=== PATIENT | female | born 1965 | race Caucasian/White ===

== ENCOUNTER 2021-05-15 13:32 | Inpatient (IN) | payer OTHER ==
[~2021-05-15] VITALS: Ht 165.1 cm; Wt 91.2 kg
[2021-05-15 14:22] LABS: BASOPHILS ABSOLUTE AUTO 0.07 K/mm3 (0.00-0.23); BASOPHILS PERCENT AUTO 0 % (0-2); EOSINOPHILS ABSOLUTE AUTO 0.02 K/mm3 (0.00-0.68); EOSINOPHILS PERCENT AUTO 0 % (0-6); Hematocrit 46.1 % (33.0-51.0); Hemoglobin 15.2 g/dL (11.5-16.0); IMMATURE GRAN ABSOLUTE AUTO 0.12 K/mm3 (0.00-0.10); IMMATURE GRAN PERCENT AUTO 1 % (0-1); LYMPHOCYTES ABSOLUTE AUTO 2.01 K/mm3 (0.84-5.20); LYMPHOCYTES PERCENT AUTO 10 % (21-46); MONOCYTES ABSOLUTE AUTO 1.66 K/mm3 (0.16-1.47); MONOCYTES PERCENT AUTO 8 % (4-13); Mean Corpuscular HGB 28.5 pg (26.0-34.0); Mean Corpuscular Volume 87 fL (80-100); Mean Platelet Volume 10.7 fL (9.1-12.4); NEUTROPHILS ABSOLUTE AUTO 16.99 K/mm3 (1.96-9.15); NEUTROPHILS PERCENT AUTO 81 % (41-73); Platelet Count 324 K/mm3 (150-400); RDW Coefficient Variation 12.1 % (11.7-14.2); RDW Standard Deviation 38.6 fL (35.1-46.3); Red Blood Cell Count 5.33 M/mm3 (3.80-5.20); White Blood Cell Count 20.87 K/mm3 (4.00-11.30)
[2021-05-15 14:56] LABS: Alanine Aminotransfer (ALT/SGP 18 U/L (12-78); Albumin, Blood 3.2 g/dL (3.4-5.0); Albumin/Globulin Ratio 0.6 (0.8-1.8); Alk Phos 105 U/L (50-136); Anion Gap 18 mmol/L (6-16); Aspartate Aminotrans (AST/SGOT 10 U/L (12-37); Bilirubin, Total 0.8 mg/dL (0.1-1.0); Blood Urea Nitrogen 11 mg/dL (8-24); Bun/Creatinine Ratio 17.5 (12.0-20.0); CO2, Blood 15 mmol/L (21-32); Calcium, Blood 9.6 mg/dL (8.5-10.1); Chloride, Blood 98 mmol/L (98-108); Creatinine, Blood 0.63 mg/dL (0.40-1.00); Globulin, Blood 5.8 g/dL (2.2-4.0); Glomerular Filtration Rate >60 (60-); Glucose, Blood 353 mg/dL (70-99); Potassium, Blood 4.2 mmol/L (3.5-5.5); Sodium, Blood 131 mmol/L (136-145)
--- NOTE | 2021-05-15 22:37 | NUR ---
2155: PT TO ICU 16 VIA DAVIAN FROM OR FOR RECOVERY POST TRANSMETATARSAL AMPUTATION WITH INCISION AND DRAINAGE FOR NECROTIZING FASCIITIS. SHE ROUSES EASILY TO VERBAL STIMULI AND ATTEMPTS COUGH AND DEEP BREATH, EFFORT IS NOTED WEAK. LUNGS ARE CLEAR THROUGHOUT WITH DIM BASES BILAT, SATS MID 90S WITH OXYGEN VIA NASAL CANNULA AT 6 L/MIN. PT DENIES PAIN, DENIES NAUSEA, STATES THAT SHE IS FEELING SAD. HRR, PRESSURES MAINTAINING, SINUS RHYTHM ON MONITOR, RATE 80S, SKIN PWD, PULSES FULL, BRISK CAP REFILL. NO EDEMA NOTED, DRESSING TO RIGHT FOOT IS KEVIN WRAP AND WOUND VAC, CDI, NO DRAINAGE IN WOUND VAC OF THIS TIME. 2210: PT FULLY AWAKE AND REQUESTS ICE WATER, ICE CHIPS PROVIDED, WILL MONITOR. CAN COUGH AND DEEP BREATHE WELL NOW. VITALS REMAIN STABLE. CONTINUES TO DENY PAIN, DRESSING REMAINS CDI. OXYGEN HAS BEEN TITRATED DOWN TO 4 L/MIN VIA NASAL CANNULA. 2225: PT MEETS POST ANESTHESIA RECOVERY DISCHARGE CRITERIA. CONTINUES TO DENY PAIN, DRESSING REMAINS CDI, VITALS REMAIN STABLE, REMAINS FULLY AWAKE. OXYGEN HAS BEEN TITRATED DOWN TO 2 L/MIN VIA NASAL CANNULA. 2237: PT TO PCU 13 VIA DAVIAN, REPORT TO JOI MIRANDA.
[2021-05-16 04:02] LABS: BASOPHILS ABSOLUTE AUTO 0.06 K/mm3 (0.00-0.23); BASOPHILS PERCENT AUTO 0 % (0-2); EOSINOPHILS ABSOLUTE AUTO 0.02 K/mm3 (0.00-0.68); EOSINOPHILS PERCENT AUTO 0 % (0-6); Hematocrit 38.1 % (33.0-51.0); Hemoglobin 12.7 g/dL (11.5-16.0); IMMATURE GRAN ABSOLUTE AUTO 0.08 K/mm3 (0.00-0.10); IMMATURE GRAN PERCENT AUTO 0 % (0-1); LYMPHOCYTES ABSOLUTE AUTO 2.54 K/mm3 (0.84-5.20); LYMPHOCYTES PERCENT AUTO 14 % (21-46); MONOCYTES ABSOLUTE AUTO 2.12 K/mm3 (0.16-1.47); MONOCYTES PERCENT AUTO 12 % (4-13); Mean Corpuscular HGB 28.8 pg (26.0-34.0); Mean Corpuscular HGB Conc 33.3 g/dL (31.5-36.5); Mean Corpuscular Volume 86 fL (80-100); Mean Platelet Volume 10.4 fL (9.1-12.4); NEUTROPHILS ABSOLUTE AUTO 13.41 K/mm3 (1.96-9.15); NEUTROPHILS PERCENT AUTO 74 % (41-73); Platelet Count 281 K/mm3 (150-400); RDW Coefficient Variation 12.1 % (11.7-14.2); RDW Standard Deviation 38.4 fL (35.1-46.3); Red Blood Cell Count 4.41 M/mm3 (3.80-5.20); White Blood Cell Count 18.23 K/mm3 (4.00-11.30)
--- NOTE | 2021-05-16 05:59 | NUR ---
PT ALERT AND ORIENTEDD. VSS ON 2L. TYLENOL AND DILAUDID GIVEN FOR PAIN W/ GOOD EFFECT. PT UP TO BSC W/ FWW, NON WT BEARING TO R LEG, 2 PERSON ASSIST. INCREASED PAIN NOTED AND BED KAMARA USED REMAINDER OF NIGHT. R LEG ELEVATED ON PILLOWS. WOUND VAC IN PLACE. PT SLEEPING B/W CARE. USING CALL LIGHT TO MAKE NEEDS KNOWN.
[2021-05-16 11:12] LABS: Albumin, Blood 2.5 g/dL (3.4-5.0); Anion Gap 9 mmol/L (6-16); Blood Urea Nitrogen 11 mg/dL (8-24); Bun/Creatinine Ratio 17.9 (12.0-20.0); CO2, Blood 21 mmol/L (21-32); Chloride, Blood 105 mmol/L (98-108); Creatinine, Blood 0.62 mg/dL (0.40-1.00); Glomerular Filtration Rate >60 (60-); Glucose, Blood 279 mg/dL (70-99); Phosphorus, Blood 3.9 mg/dL (2.5-4.9); Potassium, Blood 3.6 mmol/L (3.5-5.5); Sodium, Blood 135 mmol/L (136-145)
--- NOTE | 2021-05-16 13:43 | NUR ---
REPORT GIVEN TO ASHLEY MIRANDA ON SURGICAL.
--- NOTE | 2021-05-16 14:24 | NUR ---
PATIENT JUST TRANSFERRED FROM PCU 13 TO SURGICAL 211. POD 1 I&D AND TRANSMETATARSAL AMPUTATION OF RIGHT FOOT. PATIENT IS ALERT AND ORIENTED X4. VS ARE WNL AND IS ON RA. SHE DENIES PAIN AT THIS TIME. HER RIGHT FOOT HAS A WOUND VAC AND KEVIN WRAP THAT IS C/D/I. FOAM ON WOUND VAC IS COMPRESSED AND SUCTIONING RED OUTPUT. SHE IS CURRENTLY LAYING IN BED WITH HER RIGHT FOOT ELEVATED ON A PILLOW. CALL LIGHT WITHIN REACH. IS AT BEDSIDE.
--- NOTE | 2021-05-16 17:08 | NUR ---
SHIFT SUMMARY: POD 1 I&D WITH TRANSMETATARSAL AMPUTATION OF RIGHT FOOT PATIENT IS ALERT AND ORIENTED X4. VS ARE WNL AND IS ON RA. PATIENT REPORTS NO PAIN AT THIS TIME. HER RIGHT FOOT HAS A WOUND VAC AND KEVIN WRAP AROUND IT. WOUND VAC HAS THE BLACK FOAM COMPRESSED AND SUCTIONING. PATIENT REPORTS HAVING NO NUMBNESS OR TINGLING. SHE IS NON WEIGHT BEARING ON THE RIGHT FOOT. SHE IS VOIDING AND TOLERATING PO INTAKE. SHE IS CURRENTLY LAYING IN BED WATCHING TV WITH HER AT BEDSIDE. CALL LIGHT IS WITHIN REACH. THE PLAN IS TO CONTINUE ABX AND MONITOR WOUND VAC. DR. PETERS WILL REMOVE THE DRESSING ON FRIDAY TO VIEW THE WOUND.
--- NOTE | 2021-05-16 20:14 | NUR ---
PT SITTING IN BED TALKING ON PHONE. PT REQ TO WAIT FOR ASSESSMENT UNTIL SHE IS FINISHED W/HER CALL.
[2021-05-16 20:16] LABS: Vancomycin, Trough 16.2 ug/mL (5.0-10.0)
[2021-05-17 04:54] LABS: BASOPHILS ABSOLUTE AUTO 0.05 K/mm3 (0.00-0.23); BASOPHILS PERCENT AUTO 0 % (0-2); EOSINOPHILS ABSOLUTE AUTO 0.14 K/mm3 (0.00-0.68); EOSINOPHILS PERCENT AUTO 1 % (0-6); Hematocrit 35.9 % (33.0-51.0); Hemoglobin 11.8 g/dL (11.5-16.0); IMMATURE GRAN ABSOLUTE AUTO 0.07 K/mm3 (0.00-0.10); IMMATURE GRAN PERCENT AUTO 1 % (0-1); LYMPHOCYTES ABSOLUTE AUTO 3.15 K/mm3 (0.84-5.20); LYMPHOCYTES PERCENT AUTO 25 % (21-46); MONOCYTES ABSOLUTE AUTO 1.37 K/mm3 (0.16-1.47); MONOCYTES PERCENT AUTO 11 % (4-13); Mean Corpuscular HGB 28.2 pg (26.0-34.0); Mean Corpuscular HGB Conc 32.9 g/dL (31.5-36.5); Mean Corpuscular Volume 86 fL (80-100); Mean Platelet Volume 10.6 fL (9.1-12.4); NEUTROPHILS ABSOLUTE AUTO 7.82 K/mm3 (1.96-9.15); NEUTROPHILS PERCENT AUTO 62 % (41-73); Platelet Count 265 K/mm3 (150-400); RDW Standard Deviation 38.1 fL (35.1-46.3); Red Blood Cell Count 4.18 M/mm3 (3.80-5.20)
[2021-05-17 05:18] LABS: Albumin, Blood 2.1 g/dL (3.4-5.0); Anion Gap 8 mmol/L (6-16); Blood Urea Nitrogen 16 mg/dL (8-24); Bun/Creatinine Ratio 28.4 (12.0-20.0); CO2, Blood 22 mmol/L (21-32); Calcium, Blood 8.7 mg/dL (8.5-10.1); Chloride, Blood 105 mmol/L (98-108); Creatinine, Blood 0.56 mg/dL (0.40-1.00); Glomerular Filtration Rate >60 (60-); Glucose, Blood 239 mg/dL (70-99); Phosphorus, Blood 3.4 mg/dL (2.5-4.9); Potassium, Blood 3.2 mmol/L (3.5-5.5); Sodium, Blood 135 mmol/L (136-145)
--- NOTE | 2021-05-17 06:28 | NUR ---
POD 2 S/P TMA AMPUTATION. PT VSS T/O NIGHT. WOUND VAC DRNG SS DRNG; SEAL AND SX INTACT. PT REP PAIN WELL MGD W/TORADOL, DECLINED NEED FOR STRONGER PAIN MEDS. PT HAD NO C/O N/V, IS VOIDING URINE W/O DIFFICULTY. RLE ELEVATED IN BED. IV ABX CONT PER ORDERS.
--- NOTE | 2021-05-17 18:01 | NUR ---
SUMMARY PT TEARFUL AND EMOTIONAL AT TIMES, STATES "I CANT DO IT" WITH ENCOURAGEMENT PATIENT ABLE TO USE WALKER TO GET OOB TO CHAIR AND COMMODE. DRESSING DRY AND INTACT TO RIGHT FOOT. WOUND VAC MAINTAINING PRESSURE AT 125 MM. SMALL AMOUNT SEROSANGUINOUS DRAINAGE IN WOUND VAC CANNISTER. PT REPORTS PAIN IS ADEQUATELY CONTROLLED
[2021-05-18 04:15] LABS: BASOPHILS ABSOLUTE AUTO 0.06 K/mm3 (0.00-0.23); BASOPHILS PERCENT AUTO 1 % (0-2); EOSINOPHILS ABSOLUTE AUTO 0.25 K/mm3 (0.00-0.68); EOSINOPHILS PERCENT AUTO 2 % (0-6); Hematocrit 37.7 % (33.0-51.0); Hemoglobin 12.4 g/dL (11.5-16.0); IMMATURE GRAN ABSOLUTE AUTO 0.07 K/mm3 (0.00-0.10); IMMATURE GRAN PERCENT AUTO 1 % (0-1); LYMPHOCYTES ABSOLUTE AUTO 3.97 K/mm3 (0.84-5.20); LYMPHOCYTES PERCENT AUTO 33 % (21-46); MONOCYTES ABSOLUTE AUTO 1.33 K/mm3 (0.16-1.47); MONOCYTES PERCENT AUTO 11 % (4-13); Mean Corpuscular HGB 28.8 pg (26.0-34.0); Mean Corpuscular HGB Conc 32.9 g/dL (31.5-36.5); Mean Corpuscular Volume 88 fL (80-100); Mean Platelet Volume 10.6 fL (9.1-12.4); NEUTROPHILS ABSOLUTE AUTO 6.31 K/mm3 (1.96-9.15); NEUTROPHILS PERCENT AUTO 53 % (41-73); Platelet Count 270 K/mm3 (150-400); RDW Coefficient Variation 12.1 % (11.7-14.2); RDW Standard Deviation 39.1 fL (35.1-46.3); Red Blood Cell Count 4.31 M/mm3 (3.80-5.20); White Blood Cell Count 11.99 K/mm3 (4.00-11.30)
[2021-05-18 04:32] LABS: Albumin, Blood 2.1 g/dL (3.4-5.0); Anion Gap 6 mmol/L (6-16); Blood Urea Nitrogen 16 mg/dL (8-24); Bun/Creatinine Ratio 18.5 (12.0-20.0); CO2, Blood 25 mmol/L (21-32); Calcium, Blood 8.8 mg/dL (8.5-10.1); Chloride, Blood 108 mmol/L (98-108); Creatinine, Blood 0.86 mg/dL (0.40-1.00); Glomerular Filtration Rate >60 (60-); Glucose, Blood 181 mg/dL (70-99); Phosphorus, Blood 4.6 mg/dL (2.5-4.9); Potassium, Blood 3.2 mmol/L (3.5-5.5); Sodium, Blood 139 mmol/L (136-145)
--- NOTE | 2021-05-18 05:23 | NUR ---
POD 3 S/P RIGHT TMA. PT VSS T/O NIGHT. WOUND VAC W/SS DRNG, SEAL AND SX INTACT @ 120MMG. PT DENIED CHANGES IN SENSATION. PAIN MGD W/PERCOCET AND TORADOL W/REP RELIEF. PT UP OOB W/FWW+1 ASSIST, RLE NWB STATUS REINFORCED, PT DID BECOME WEAK/WORN OUT ON WAY BACK TO BED FROM BATHROOM. PT EMOTIONAL AND TEARFUL AT TIMES, SUPPORT AND EDUCATION PROVIDED PRN; PT RECEPTIVE TO INFO, APPEARS TO CALM AFTER THERAPEUTIC COMMUNICATION. PLAN FOR WOUND VAC CHANGE TODAY AND AWAIT DC PLANS.
--- NOTE | 2021-05-18 09:05 | NUR ---
DR ROWE IN TO SEE PT. DISCUSSED PLAN FOR SNF. PT AGREEABLE. AWAITING DR PETERS'S RECOMMNEDATIONS FOR ABX/WOUND CARE.
--- NOTE | 2021-05-18 10:32 | NUR ---
PT WORKING W/OCCUPATIONAL THERAPY
--- NOTE | 2021-05-18 13:29 | NUR ---
DR PETERS IN TO SEE PT REMOVED WOUND VAC AND AND EXAMINED. WOUND VAC REPLACED BY THIS RN. PT MEDICATED PER ORDERS W/0.5 MG IV DILAUDID PER ORDERS FOR DRESSING CHANGE. PT CRIED OUT DURING WOUND VAC CHANGE BUT NOW RATES PAIN 5/10, STATING TOLERABLE. DR PETERS ADVISED PT SHOULD BE ON IV ABX FOR TWO WEEKS. WOUND VAC CHANGES M,W,F. PT RESTING IN BED. CALL LIGHT IN REACH.
--- NOTE | 2021-05-18 17:08 | NUR ---
SUMMARY NO ACUTE CHANGES T/O SHIFT. PT TEARFUL AT TIMES. CHANGED WOUND VAC AFTER DR PETERS INSPECTED WOUND THIS AFTERNOON. PT VERY PAINFUL DURING AND AFTER CHANGE. MEDICATED PER ORDERS FOR PAIN. AT THIS TIME, RATES PAIN 11/12. WORKED WITH THERAPY. SPOUSE AT BEDSIDE AT THIS TIME, BROUGHT PT NELIA VALENTE. CALL LIGHT IN REACH.
--- NOTE | 2021-05-19 04:26 | NUR ---
SHIFT SUMMARY NO ACUTE CHANGES THIS SHIFT. PT HAS RESTED WELL T/O NIGHT. WOUND VAC DRESSING TO R FOOT REMAINS CDI AND COMPRESSED. 1 ASSIST TO BSC. IV ABX PER ORDERS. 1 PERCOCET + TORADOL FOR PAIN. USES CALL LIGHT APPROPRIATELY.
--- NOTE | 2021-05-19 17:00 | NUR ---
SHIFT SUMMARY PT A&OX4, VSS, CBGS REQ COVERAGE, POD3 R FT TRANSMET AMP, WOUND VAC WNL, NWB. AMB W/FWW-GB TO BRP, UP TO CHAIR/BED. VOIDING WELL. MARLYN PO. PAIN MANAGED WITH 5 MG PERC AND TORADOL. POWERGLIDE, ABX INFUSING PER EMAR. WILL REPORT TO ONCOMING NOC RUTH.
--- NOTE | 2021-05-20 02:06 | NUR ---
A/OX4. VSS ON RA. PAIN MANAGED WELL W/ NOCO. R FOOT DRESSING CDI, WOUND VAC IN PLACE FUNCTIONING. PT UP TO TOILET W/ GAITBELT AND FWW. SLEEPING B/W CARE. USING CALL LIGHT TO MAKE NEEDS KNOWN.
--- NOTE | 2021-05-20 19:11 | NUR ---
SHIFT SUMMARY PT A&OX4, VSS, CBGS COV REQ. POD4 R FT TM AMPUTATION, WOUND VAC WNL, NWB; AMB WITH FWW & GB TO BRP, UP TO CHAIR. VOIDING WELL. MARLYN PO. PAIN MANAGED 5 MG PERC AND TORADOL. WILL REPORT TO ONCOMING NOC RN.
--- NOTE | 2021-05-21 04:25 | NUR ---
PT A/OX4. VSS ON RA. BP ELEVATED, DOES NOT MEET PARAMETERS FOR HYDRALAZINE. MEDICATED FOR PAIN PER EMAR. UP TO TOILET W/ FWW AND GAITBELT. USING CALL LIGHT TO MAKE NEEDS KNOWN.
[2021-05-21 06:15] LABS: Anion Gap 7 mmol/L (6-16); Blood Urea Nitrogen 29 mg/dL (8-24); Bun/Creatinine Ratio 11.6 (12.0-20.0); CO2, Blood 22 mmol/L (21-32); Calcium, Blood 8.7 mg/dL (8.5-10.1); Chloride, Blood 110 mmol/L (98-108); Creatinine, Blood 2.51 mg/dL (0.40-1.00); Glomerular Filtration Rate 20 (60-); Glucose, Blood 104 mg/dL (70-99); Phosphorus, Blood 5.5 mg/dL (2.5-4.9); Potassium, Blood 3.6 mmol/L (3.5-5.5); Sodium, Blood 139 mmol/L (136-145)
--- NOTE | 2021-05-21 17:52 | NUR ---
SHIFT SUMMARY PATIENT ALERT AND ORIENTED THROUGHOUT SHIFT. TOLERATING ADA DIET AND FLUIDS. ROUTINE IV ABX. WOUND VAC CHANGED THIS SHIFT. SHOWER DONE THIS SHIFT. SBA WITH WALKER TO BATHROOM. MEDICATED FOR PAIN PER EMAR. WORKING WELL WITH PHYSICAL THERAPY. WILL REPORT TO FLATWORK FINISHER RN.
[2021-05-22 05:10] LABS: BASOPHILS ABSOLUTE AUTO 0.04 K/mm3 (0.00-0.23); BASOPHILS PERCENT AUTO 0 % (0-2); EOSINOPHILS ABSOLUTE AUTO 0.36 K/mm3 (0.00-0.68); EOSINOPHILS PERCENT AUTO 3 % (0-6); Hematocrit 35.1 % (33.0-51.0); Hemoglobin 11.2 g/dL (11.5-16.0); IMMATURE GRAN ABSOLUTE AUTO 0.09 K/mm3 (0.00-0.10); IMMATURE GRAN PERCENT AUTO 1 % (0-1); LYMPHOCYTES ABSOLUTE AUTO 2.36 K/mm3 (0.84-5.20); LYMPHOCYTES PERCENT AUTO 20 % (21-46); MONOCYTES ABSOLUTE AUTO 1.36 K/mm3 (0.16-1.47); MONOCYTES PERCENT AUTO 11 % (4-13); Mean Corpuscular HGB 28.2 pg (26.0-34.0); Mean Corpuscular HGB Conc 31.9 g/dL (31.5-36.5); Mean Corpuscular Volume 88 fL (80-100); Mean Platelet Volume 9.6 fL (9.1-12.4); NEUTROPHILS ABSOLUTE AUTO 7.89 K/mm3 (1.96-9.15); NEUTROPHILS PERCENT AUTO 65 % (41-73); Platelet Count 308 K/mm3 (150-400); RDW Coefficient Variation 12.3 % (11.7-14.2); Red Blood Cell Count 3.97 M/mm3 (3.80-5.20)
[2021-05-22 05:37] LABS: Anion Gap 11 mmol/L (6-16); Blood Urea Nitrogen 29 mg/dL (8-24); Bun/Creatinine Ratio 11.2 (12.0-20.0); CO2, Blood 21 mmol/L (21-32); Calcium, Blood 8.6 mg/dL (8.5-10.1); Chloride, Blood 108 mmol/L (98-108); Creatinine, Blood 2.58 mg/dL (0.40-1.00); Glomerular Filtration Rate 19 (60-); Glucose, Blood 109 mg/dL (70-99); Phosphorus, Blood 5.1 mg/dL (2.5-4.9); Sodium, Blood 140 mmol/L (136-145)
--- NOTE | 2021-05-22 05:51 | NUR ---
SHIFT SUMMARY POD6 TRANSMETATARSAL AMPUTATION c WASHOUT, A/O X4, VSS, TOLERATING PO, VOIDING, AMB c FWW/GB/SBA, PAIN MANAGED PER EMAR. NO ACUTE EVENTS THIS SHIFT, CALL LIGHT IN REACH, WILL CTM AND REPORT TO DAY RN.
--- NOTE | 2021-05-22 15:48 | NUR ---
SUMMARY: PT IS POD6 R TRANS METATARSAL AUMPUTATION. PT IS A/O, VSS. SURGICAL SITE AND WOUND VAC WNL. PT WORKED WITH OT/PT, UP WITH FWW TO THE CHAIR AND BATHROOM. PT FOLLOWING NWB PRECAUTIONS. 2 PERCOCETS Q6 ARE MANAGING PAIN. CBG'S ARE STABLE, PT HAS NEEDED MINIMAL INSULIN COVERAGE. PLAN IS TO CONTINUE IV ANTIBIOTICS, NEXT WOUND VAC CHANGE WILL BE TOMORROW PER ORDER. NO ACUTE SAFETY CONCERNS, WILL PASS REPORT TO PAXTON MIRANDA.
[2021-05-23 04:59] LABS: BASOPHILS ABSOLUTE AUTO 0.06 K/mm3 (0.00-0.23); BASOPHILS PERCENT AUTO 1 % (0-2); EOSINOPHILS ABSOLUTE AUTO 0.42 K/mm3 (0.00-0.68); EOSINOPHILS PERCENT AUTO 3 % (0-6); Hematocrit 35.2 % (33.0-51.0); Hemoglobin 11.4 g/dL (11.5-16.0); IMMATURE GRAN ABSOLUTE AUTO 0.13 K/mm3 (0.00-0.10); IMMATURE GRAN PERCENT AUTO 1 % (0-1); LYMPHOCYTES ABSOLUTE AUTO 2.51 K/mm3 (0.84-5.20); LYMPHOCYTES PERCENT AUTO 20 % (21-46); MONOCYTES PERCENT AUTO 11 % (4-13); Mean Corpuscular HGB 28.4 pg (26.0-34.0); Mean Corpuscular HGB Conc 32.4 g/dL (31.5-36.5); Mean Corpuscular Volume 88 fL (80-100); Mean Platelet Volume 9.6 fL (9.1-12.4); NEUTROPHILS ABSOLUTE AUTO 8.32 K/mm3 (1.96-9.15); NEUTROPHILS PERCENT AUTO 65 % (41-73); Platelet Count 332 K/mm3 (150-400); RDW Coefficient Variation 12.3 % (11.7-14.2); RDW Standard Deviation 39.6 fL (35.1-46.3); Red Blood Cell Count 4.01 M/mm3 (3.80-5.20); White Blood Cell Count 12.84 K/mm3 (4.00-11.30)
[2021-05-23 05:19] LABS: Bun/Creatinine Ratio 12.6 (12.0-20.0); Calcium, Blood 8.9 mg/dL (8.5-10.1); Creatinine, Blood 1.99 mg/dL (0.40-1.00); Potassium, Blood 3.8 mmol/L (3.5-5.5)
--- NOTE | 2021-05-23 06:07 | NUR ---
SHIFT SUMMARY POD8 S/P TRANSMETATARSAL AMPUTATION WITH I&D WITH DR. PETERS. NO ACUTE CHANGES OVERNIGHT. PT SLEPT WELL. PAIN IS WELL CONTROLLED. PAIN MANAGED WITH 2 PERCOCET, Q6. AMBULATING IN THE BATHROOM, WITH 1 SBA. NWB ON RLE. ADMINISTERED FLAGYL AND ROCEPHIN FOR IV ABX. IV FLUIDS INFUSING AT 50MLS/HR. CBG IS WELL CONTROLLED AT 183 AT HS. GFR HAS IMPROVED THIS MORNING. PT ALERT AND ORIENTED X4. TOLERATING PO INTAKE. DENIES NAUSEA AND VOMITING. PT ALSO DENIES NUMBNESS AND TINGLING SENSATION. CALL LIGHT WITHIN REACH. WILL PROVIDE REPORT TO ONCOMING NURSE.
--- NOTE | 2021-05-23 16:08 | NUR ---
WOUND VAC CHANGED AT THIS TIME. POWER GLIDE DRESSING CHANGED.
--- NOTE | 2021-05-23 18:06 | NUR ---
SHIFT SUMMARY PT IS A/O X4, SBA UP TO BATHROOM. TOLERATING PO INTAKE AND VOIDING. WOUND VAC AND POWER GLIDE DRESSINGS WERE CHANGED TODAY. PAIN HAS BEEN MANAGED WITH PO PAIN MEDS. PT DECLINED SHOWER AND GETTING UP TO CHAIR TODAY. PLAN IS TO DC WITH HOME HEALTH POSSIBLY ON FRIDAY AFTER NEXT WOUND VAC CHANGE. IV FLUIDS HAVE BEEN INFUSING PER ORDER. PT RESTING IN BED AT THIS TIME.
[2021-05-24 05:38] LABS: Bun/Creatinine Ratio 13.9 (12.0-20.0); Calcium, Blood 8.7 mg/dL (8.5-10.1); Creatinine, Blood 1.66 mg/dL (0.40-1.00); Potassium, Blood 3.5 mmol/L (3.5-5.5)
--- NOTE | 2021-05-24 06:41 | NUR ---
PT A/OC4. VSS ON RA. PAIN MANAGED WELL W/ CURRENT PAIN MED REGIME. DENIES SOB/CP. UP TO TOILET W/ FWW AND GAITBELT. CONTINOUS FLUIDS INFUSING. SLEEPING B/W CARE. USING CALL LIGHT TO MAKE NEEDS KNOWN.
--- NOTE | 2021-05-24 16:59 | NUR ---
SHIFT SUMMARY PT HAS BEEN A/O X4, SBA UP TO BATHROOM FOR CORDS/LINES. WOUND VAC WNL TODAY, DRESSING CDI. PAIN MANAGED WITH PO PAIN MEDS PER ORDERS. PT WORKED WITH THERAPY TODAY AND WAS ABLE TO AMBULATE IN ROOM WITH FWW WHILE MAINTAING NWB PRECAUTIONS. PLAN IS TO HAVE WOUND VAC CHANGED TOMORROW THEN DC HOME. PT RESTING IN BED AT THIS TIME.
--- NOTE | 2021-05-25 04:46 | NUR ---
PT A/OX4. VSS ON RA. PAIN MANAGED WELL W/ CURRENT PAIN REGIME. UP TO TOILET W/ FWW. IN BED, LEG ELEVATED ON PILLOWS. WOUND VAC SUCTION WNL. USING CALL LIGHT TO MAKE NEEDS KNOWN.
--- NOTE | 2021-05-25 07:29 | NUR ---
pt stated she slept well last night worried that the home wound vac will not fit the supplies of this wound vac req i wait untill it is all here to change it
--- NOTE | 2021-05-25 10:27 | NUR ---
dr pro by to see pt ok to discharge today wound vac here will place after shower pt wants to have pain meds first available at 1100
[2021-05-25] MEDS ORDERED: TRAM50 PO (10:48)
--- NOTE | 2021-05-25 15:07 | NUR ---
DISCHARGE INSTRUCTIONS REVIEWED WITH PT VERBALIZED WOUND VAC PLACED RX GIVEN SUPPLIES READY AT [facility] TO VALUE ANALYST PER BETHEL LINTON AT BEDSIDE ALSO WENT OVER INSTRUTIONS WITH HIM
== END 2021-05-25 15:21 | disposition home health service (06) | DRG 239 ==
LOC: ER 13:32 → PCU 19:56 → SURS 05-16 13:49
PROVIDERS: Family Medicine; Internal Medicine; Physician Assistant; Podiatrist Foot & Ankle Surgery; ADMIT Hospitalist
PROC: 0Y6M0ZC Detachment at Right Foot, Partial 3rd Ray, Open Approach (ICD-10-PCS; 2021-05-15)
PROC: 0Y6M0ZD Detachment at Right Foot, Partial 4th Ray, Open Approach (ICD-10-PCS; 2021-05-15)
PROC: 0Y6M0ZF Detachment at Right Foot, Partial 5th Ray, Open Approach (ICD-10-PCS; 2021-05-15)
PROC: 0Y6M0Z9 Detachment at Right Foot, Partial 1st Ray, Open Approach (ICD-10-PCS; principal; 2021-05-15 19:30)
PROC: 0Y6M0ZB Detachment at Right Foot, Partial 2nd Ray, Open Approach (ICD-10-PCS; 2021-05-15 19:30)
DX: E11.52 Type 2 diabetes mellitus with diabetic peripheral angiopathy with gangrene (principal); M72.6 Necrotizing fasciitis; A48.0 Gas gangrene; N17.0 Acute kidney failure with tubular necrosis; E87.2 Acidosis; E87.1 Hypo-osmolality and hyponatremia; L02.612 Cutaneous abscess of left foot; I10 Essential (primary) hypertension; E11.65 Type 2 diabetes mellitus with hyperglycemia; E87.6 Hypokalemia; Z88.7 Allergy status to serum and vaccine
CPT/HCPCS: 36415; 73630; 73701; 80048; 80053; 80069; 80202; 82947; 83036; 83605; 85025; 85651; 87040; 87070; 87075; 87205; 88305; 93005; 93010; 94760; 96361; 96365; 97110; 97110-CQ; 97116; 97162; 97166; 97530; 97530-CQ; 97535; 99285-25; A9270; J0360; J0692; J0696; J1170; J1650; J1815; J1885; J2001; J2250; J2405; J2543; J2704; J3010; J3370; J7050; J7120; Q9967

== ENCOUNTER 2021-06-19 02:20 | Day surgery (SDC) | payer OTHER ==
[~2021-06-19 02:20] MED LIST: TRAM50 PO
== END 2021-06-19 23:00 | disposition home or self-care (01) ==
LOC: WOUND 02:20
DX: E11.621 Type 2 diabetes mellitus with foot ulcer (principal); L97.515 Non-pressure chronic ulcer of other part of right foot with muscle involvement without evidence of necrosis; E11.42 Type 2 diabetes mellitus with diabetic polyneuropathy; E11.65 Type 2 diabetes mellitus with hyperglycemia; I87.2 Venous insufficiency (chronic) (peripheral); E11.51 Type 2 diabetes mellitus with diabetic peripheral angiopathy without gangrene; Z88.7 Allergy status to serum and vaccine
CPT/HCPCS: A9270; G0463

== ENCOUNTER 2021-06-26 00:49 | Day surgery (SDC) | payer OTHER | END 2021-06-26 22:54 | disposition home or self-care (01) | LOC: WOUND 00:49 | DX: E11.621 Type 2 diabetes mellitus with foot ulcer (principal); L97.515 Non-pressure chronic ulcer of other part of right foot with muscle involvement without evidence of necrosis; E11.42 Type 2 diabetes mellitus with diabetic polyneuropathy; E11.65 Type 2 diabetes mellitus with hyperglycemia; E11.51 Type 2 diabetes mellitus with diabetic peripheral angiopathy without gangrene; I87.2 Venous insufficiency (chronic) (peripheral); Z89.431 Acquired absence of right foot | CPT/HCPCS: A9270 ==

== ENCOUNTER 2021-07-03 02:02 | Day surgery (SDC) | payer OTHER | END 2021-07-03 23:08 | disposition home or self-care (01) | LOC: WOUND 02:02 | DX: E11.621 Type 2 diabetes mellitus with foot ulcer (principal); L97.515 Non-pressure chronic ulcer of other part of right foot with muscle involvement without evidence of necrosis; E08.42 Diabetes mellitus due to underlying condition with diabetic polyneuropathy; E11.65 Type 2 diabetes mellitus with hyperglycemia; E11.51 Type 2 diabetes mellitus with diabetic peripheral angiopathy without gangrene; I87.2 Venous insufficiency (chronic) (peripheral) | CPT/HCPCS: A9270 ==

== ENCOUNTER 2021-07-10 02:53 | Day surgery (SDC) | payer OTHER | END 2021-07-10 23:01 | disposition home or self-care (01) | LOC: WOUND 02:53 | DX: E11.621 Type 2 diabetes mellitus with foot ulcer (principal); L97.515 Non-pressure chronic ulcer of other part of right foot with muscle involvement without evidence of necrosis; E08.42 Diabetes mellitus due to underlying condition with diabetic polyneuropathy; E11.65 Type 2 diabetes mellitus with hyperglycemia; E11.51 Type 2 diabetes mellitus with diabetic peripheral angiopathy without gangrene; I87.2 Venous insufficiency (chronic) (peripheral); Z89.431 Acquired absence of right foot | CPT/HCPCS: A9270 ==

== ENCOUNTER 2021-07-17 02:25 | Day surgery (SDC) | payer OTHER | END 2021-07-17 22:50 | disposition home or self-care (01) | LOC: WOUND 02:25 | DX: E11.621 Type 2 diabetes mellitus with foot ulcer (principal); L97.515 Non-pressure chronic ulcer of other part of right foot with muscle involvement without evidence of necrosis; E11.65 Type 2 diabetes mellitus with hyperglycemia; I87.2 Venous insufficiency (chronic) (peripheral); E11.51 Type 2 diabetes mellitus with diabetic peripheral angiopathy without gangrene | CPT/HCPCS: A9270; G0463 ==

== ENCOUNTER 2021-07-24 03:56 | Day surgery (SDC) | payer OTHER | END 2021-07-24 23:45 | disposition home or self-care (01) | LOC: WOUND 03:56 | DX: E11.621 Type 2 diabetes mellitus with foot ulcer (principal); L97.515 Non-pressure chronic ulcer of other part of right foot with muscle involvement without evidence of necrosis; E11.42 Type 2 diabetes mellitus with diabetic polyneuropathy; E11.65 Type 2 diabetes mellitus with hyperglycemia; I87.2 Venous insufficiency (chronic) (peripheral); E11.51 Type 2 diabetes mellitus with diabetic peripheral angiopathy without gangrene | CPT/HCPCS: A9270; G0463 ==

== ENCOUNTER 2021-07-31 02:54 | Day surgery (SDC) | payer OTHER | END 2021-07-31 22:44 | disposition home or self-care (01) | LOC: WOUND 02:54 | DX: E11.621 Type 2 diabetes mellitus with foot ulcer (principal); L97.512 Non-pressure chronic ulcer of other part of right foot with fat layer exposed; E11.42 Type 2 diabetes mellitus with diabetic polyneuropathy; E11.65 Type 2 diabetes mellitus with hyperglycemia; I87.2 Venous insufficiency (chronic) (peripheral); E11.51 Type 2 diabetes mellitus with diabetic peripheral angiopathy without gangrene | CPT/HCPCS: A9270 ==

== ENCOUNTER 2021-08-07 00:28 | Day surgery (SDC) | payer OTHER | END 2021-08-07 23:29 | disposition home or self-care (01) | LOC: WOUND 00:28 | DX: E11.621 Type 2 diabetes mellitus with foot ulcer (principal); L97.515 Non-pressure chronic ulcer of other part of right foot with muscle involvement without evidence of necrosis; E11.42 Type 2 diabetes mellitus with diabetic polyneuropathy; E11.65 Type 2 diabetes mellitus with hyperglycemia; I87.2 Venous insufficiency (chronic) (peripheral); E11.51 Type 2 diabetes mellitus with diabetic peripheral angiopathy without gangrene | CPT/HCPCS: A9270; G0463 ==

== ENCOUNTER 2021-08-14 01:34 | Day surgery (SDC) | payer OTHER | END 2021-08-14 23:04 | disposition home or self-care (01) | LOC: WOUND 01:34 | DX: E11.621 Type 2 diabetes mellitus with foot ulcer (principal); L97.515 Non-pressure chronic ulcer of other part of right foot with muscle involvement without evidence of necrosis; E11.42 Type 2 diabetes mellitus with diabetic polyneuropathy; E11.65 Type 2 diabetes mellitus with hyperglycemia; I87.2 Venous insufficiency (chronic) (peripheral); E11.51 Type 2 diabetes mellitus with diabetic peripheral angiopathy without gangrene; Z88.7 Allergy status to serum and vaccine | CPT/HCPCS: A9270; G0463 ==

== ENCOUNTER → 2021-08-30 | Outpatient (CLI) | payer OTHER ==
[2021-08-30 17:51] LABS: BASOPHILS ABSOLUTE AUTO 0.07 K/mm3 (0.00-0.23); BASOPHILS PERCENT AUTO 1 % (0-2); EOSINOPHILS ABSOLUTE AUTO 0.18 K/mm3 (0.00-0.68); EOSINOPHILS PERCENT AUTO 2 % (0-6); Hematocrit 35.3 % (33.0-51.0); Hemoglobin 11.6 g/dL (11.5-16.0); IMMATURE GRAN ABSOLUTE AUTO 0.04 K/mm3 (0.00-0.10); IMMATURE GRAN PERCENT AUTO 0 % (0-1); LYMPHOCYTES ABSOLUTE AUTO 3.21 K/mm3 (0.84-5.20); LYMPHOCYTES PERCENT AUTO 29 % (21-46); MONOCYTES ABSOLUTE AUTO 0.71 K/mm3 (0.16-1.47); MONOCYTES PERCENT AUTO 7 % (4-13); Mean Corpuscular HGB 28.2 pg (26.0-34.0); Mean Corpuscular HGB Conc 32.9 g/dL (31.5-36.5); Mean Corpuscular Volume 86 fL (80-100); Mean Platelet Volume 11.1 fL (9.1-12.4); NEUTROPHILS ABSOLUTE AUTO 6.73 K/mm3 (1.96-9.15); NEUTROPHILS PERCENT AUTO 62 % (41-73); Platelet Count 304 K/mm3 (150-400); RDW Coefficient Variation 13.3 % (11.7-14.2); RDW Standard Deviation 41.8 fL (35.1-46.3); Red Blood Cell Count 4.11 M/mm3 (3.80-5.20); White Blood Cell Count 10.94 K/mm3 (4.00-11.30)
[2021-08-30 18:55] LABS: Albumin, Blood 3.2 g/dL (3.4-5.0); Albumin/Globulin Ratio 0.7 (0.8-1.8); Bilirubin, Total 0.4 mg/dL (0.1-1.0); Bun/Creatinine Ratio 23.8 (12.0-20.0); Calcium, Blood 9.4 mg/dL (8.5-10.1); Creatinine, Blood 1.01 mg/dL (0.40-1.00); Globulin, Blood 4.8 g/dL (2.2-4.0); Potassium, Blood 3.5 mmol/L (3.5-5.5)
== END | disposition home or self-care (01) ==
LOC: LAB 16:59 → LAB SHORT 16:59
PROVIDERS: Nurse Practitioner Family
DX: F32.9 Major depressive disorder, single episode, unspecified (principal); E11.22 Type 2 diabetes mellitus with diabetic chronic kidney disease; I13.10 Hypertensive heart and chronic kidney disease without heart failure, with stage 1 through stage 4 chronic kidney disease, or unspecified chronic kidney disease; N18.9 Chronic kidney disease, unspecified
CPT/HCPCS: 80053; 84443; 85025

== ENCOUNTER → 2022-02-21 | Outpatient (CLI) | payer OTHER | END | disposition home or self-care (01) | LOC: LAB SHORT 11:40 | DX: E11.29 Type 2 diabetes mellitus with other diabetic kidney complication (principal) | CPT/HCPCS: 83036 ==

== ENCOUNTER 2024-04-29 03:24 | Day surgery (SDC) | payer OTHER | END 2024-04-29 22:45 | disposition home or self-care (01) | LOC: WOUND | DX: E11.621 Type 2 diabetes mellitus with foot ulcer (principal); L97.512 Non-pressure chronic ulcer of other part of right foot with fat layer exposed; I87.2 Venous insufficiency (chronic) (peripheral); E11.51 Type 2 diabetes mellitus with diabetic peripheral angiopathy without gangrene ==

== ENCOUNTER 2024-05-12 02:14 | Day surgery (SDC) | payer OTHER ==
[2024-05-12] MEDS ORDERED: Sodium Hypochlorite 0.125% 20ML BTL ONE (10:04)
== END 2024-05-12 22:47 | disposition home or self-care (01) ==
LOC: WOUND 02:14
DX: E11.621 Type 2 diabetes mellitus with foot ulcer (principal); L97.412 Non-pressure chronic ulcer of right heel and midfoot with fat layer exposed; I87.2 Venous insufficiency (chronic) (peripheral); E11.51 Type 2 diabetes mellitus with diabetic peripheral angiopathy without gangrene
CPT/HCPCS: A9270; G0463

== ENCOUNTER 2024-05-19 03:19 | Day surgery (SDC) | payer OTHER | END 2024-05-21 22:42 | disposition home or self-care (01) | LOC: WOUND 03:19 | DX: E11.621 Type 2 diabetes mellitus with foot ulcer (principal); L97.512 Non-pressure chronic ulcer of other part of right foot with fat layer exposed; E11.51 Type 2 diabetes mellitus with diabetic peripheral angiopathy without gangrene; I87.2 Venous insufficiency (chronic) (peripheral) | CPT/HCPCS: G0463 ==

== ENCOUNTER 2024-05-26 01:20 | Day surgery (SDC) | payer OTHER | END 2024-05-27 05:11 | disposition home or self-care (01) | LOC: WOUND 01:20 | DX: E11.621 Type 2 diabetes mellitus with foot ulcer (principal); L97.512 Non-pressure chronic ulcer of other part of right foot with fat layer exposed; I87.2 Venous insufficiency (chronic) (peripheral); E11.51 Type 2 diabetes mellitus with diabetic peripheral angiopathy without gangrene | CPT/HCPCS: 87071; 87075; 87076; 87077; 87147; 87186; 87205 ==

== ENCOUNTER 2024-06-02 02:38 | Day surgery (SDC) | payer OTHER | END 2024-06-02 22:53 | disposition home or self-care (01) | LOC: WOUND 02:38 | DX: E11.621 Type 2 diabetes mellitus with foot ulcer (principal); L97.512 Non-pressure chronic ulcer of other part of right foot with fat layer exposed | CPT/HCPCS: G0463 ==

== ENCOUNTER 2024-06-22 04:09 | Day surgery (SDC) | payer OTHER ==
[2024-06-22] MEDS ORDERED: Silver Nitr/Potassium Nitrate 1 EA APPL ONE (15:28)
== END 2024-06-22 23:14 | disposition home or self-care (01) ==
LOC: WOUND 04:09
DX: E11.621 Type 2 diabetes mellitus with foot ulcer (principal); L97.412 Non-pressure chronic ulcer of right heel and midfoot with fat layer exposed; E11.51 Type 2 diabetes mellitus with diabetic peripheral angiopathy without gangrene; I87.2 Venous insufficiency (chronic) (peripheral)
CPT/HCPCS: A9270

== ENCOUNTER 2024-06-30 00:55 | Day surgery (SDC) | payer OTHER | END 2024-06-30 23:14 | disposition home or self-care (01) | LOC: WOUND 00:55 | DX: E11.621 Type 2 diabetes mellitus with foot ulcer (principal); L97.512 Non-pressure chronic ulcer of other part of right foot with fat layer exposed; I87.2 Venous insufficiency (chronic) (peripheral); I73.9 Peripheral vascular disease, unspecified | CPT/HCPCS: G0463 ==

== ENCOUNTER 2024-07-16 10:35 | Day surgery (SDC) | payer OTHER ==
[~2024-07-16] VITALS: Ht 165.1 cm; Wt 108.9 kg
[~2024-07-16 10:35] MED LIST changes: +Lactated Ringer's 1,000 ML IV ONE
[2024-07-16] MEDS ORDERED: NS 50 ML IV ONE (11:07)
[2024-07-16] MEDS ORDERED: CeFAZolin Sodium 2,000 MG VIAL ONE (11:07)
[2024-07-16] MEDS ORDERED: ATOR10 PO (11:20)
[2024-07-16] MEDS ORDERED: GABA100 PO (11:21)
[2024-07-16] MEDS ORDERED: Glucotrol Xl10 MG (11:21)
[2024-07-16] MEDS ORDERED: SULFAMETHOXAZO1 EAC1 (11:22)
[2024-07-16] MEDS ORDERED: INSULIN GL100 UNIT/2 SC (11:24)
[2024-07-16] MEDS ORDERED: METFORMIN HCL500 M3 PO (11:24)
[2024-07-16] MEDS ORDERED: Lactated Ringer's 1,000 ML IV ONE (11:49)
[2024-07-16] MEDS ORDERED: Lidocaine HCl 2% 10 ML SDA ONE (12:11)
[2024-07-16] MEDS ORDERED: Ropivacaine 0.5% HCL/PF 5 MG/ML 30ML Vial ONE (12:11)
[2024-07-16] MEDS ORDERED: Midazolam HCl 1MG / ML 2ML Vial ONE (12:25)
--- NOTE | 2024-07-16 12:25 | NUR ---
07/16/24 1225 Marilyn Navarro 1220: DR MAIN AND DR PETERS NOTIFIED THAT PATIENT'S LAST HEMOGLOBIN A1C WAS 10.1% PER DRS OK TO PROCEED, NO NEW ORDERS.
[2024-07-16] MEDS ORDERED: FentaNYL Citrate 50 MCG/ML 2 ML Injection ONE (12:39)
[2024-07-16] MEDS ORDERED: Dexamethasone Sod Phos 10 MG/ML 1ML VIAL ONE (12:39)
[2024-07-16 13:09] VITALS: BP 156/74
== END 2024-07-16 13:55 | disposition home or self-care (01) ==
LOC: ORSCSDS 10:35
PROVIDERS: Podiatrist Foot & Ankle Surgery
PROC: 0HBMXZX Excision of Right Foot Skin, External Approach, Diagnostic (ICD-10-PCS; principal; 2024-07-16 12:30)
DX: E08.42 Diabetes mellitus due to underlying condition with diabetic polyneuropathy (principal); L91.0 Hypertrophic scar; S91.301A Unspecified open wound, right foot, initial encounter; Z89.421 Acquired absence of other right toe(s); I10 Essential (primary) hypertension; E11.9 Type 2 diabetes mellitus without complications; F41.9 Anxiety disorder, unspecified; E66.01 Morbid (severe) obesity due to excess calories; Z68.39 Body mass index [BMI] 39.0-39.9, adult; Z79.4 Long term (current) use of insulin; Z79.84 Long term (current) use of oral hypoglycemic drugs; Z79.899 Other long term (current) drug therapy
CPT/HCPCS: 82947; 88305; J0690; J1100; J2001; J2250; J2795; J3010; J7120

== ENCOUNTER 2024-07-28 04:48 | Day surgery (SDC) | payer OTHER ==
[~2024-07-28 04:48] MED LIST changes: +ATOR10 PO; +GABA100 PO; +Glucotrol Xl10 MG; +INSULIN GL100 UNIT/2 SC; -Lactated Ringer's 1,000 ML IV ONE; +METFORMIN HCL500 M3 PO; +SULFAMETHOXAZO1 EAC1
== END 2024-07-28 22:55 | disposition home or self-care (01) ==
LOC: WOUND 04:48
DX: E11.621 Type 2 diabetes mellitus with foot ulcer (principal); L97.513 Non-pressure chronic ulcer of other part of right foot with necrosis of muscle; I87.2 Venous insufficiency (chronic) (peripheral); E11.51 Type 2 diabetes mellitus with diabetic peripheral angiopathy without gangrene
CPT/HCPCS: G0463

== ENCOUNTER 2024-07-30 01:10 | Day surgery (SDC) | payer OTHER | END 2024-07-30 22:53 | disposition home or self-care (01) | LOC: WOUND 01:10 | DX: E11.621 Type 2 diabetes mellitus with foot ulcer (principal); I87.2 Venous insufficiency (chronic) (peripheral); E11.51 Type 2 diabetes mellitus with diabetic peripheral angiopathy without gangrene | CPT/HCPCS: G0463 ==

== ENCOUNTER 2024-08-02 05:02 | Day surgery (SDC) | payer OTHER | END 2024-08-03 23:04 | disposition home or self-care (01) | LOC: WOUND 05:02 | DX: E11.621 Type 2 diabetes mellitus with foot ulcer (principal); L97.515 Non-pressure chronic ulcer of other part of right foot with muscle involvement without evidence of necrosis; E11.51 Type 2 diabetes mellitus with diabetic peripheral angiopathy without gangrene; I10 Essential (primary) hypertension; Z88.7 Allergy status to serum and vaccine; Z89.421 Acquired absence of other right toe(s) | CPT/HCPCS: G0463 ==

== ENCOUNTER 2024-08-06 01:26 | Day surgery (SDC) | payer OTHER | END 2024-08-07 02:55 | disposition home or self-care (01) | LOC: WOUND 01:26 | DX: E11.621 Type 2 diabetes mellitus with foot ulcer (principal); L97.513 Non-pressure chronic ulcer of other part of right foot with necrosis of muscle; I10 Essential (primary) hypertension; E11.51 Type 2 diabetes mellitus with diabetic peripheral angiopathy without gangrene; Z88.7 Allergy status to serum and vaccine; Z89.421 Acquired absence of other right toe(s) | CPT/HCPCS: G0463 ==

== ENCOUNTER 2024-08-09 01:35 | Day surgery (SDC) | payer OTHER | END 2024-08-09 23:00 | disposition home or self-care (01) | LOC: WOUND 01:35 | DX: E11.621 Type 2 diabetes mellitus with foot ulcer (principal); L97.515 Non-pressure chronic ulcer of other part of right foot with muscle involvement without evidence of necrosis; I87.2 Venous insufficiency (chronic) (peripheral); E11.51 Type 2 diabetes mellitus with diabetic peripheral angiopathy without gangrene ==

== ENCOUNTER 2024-08-18 02:03 | Day surgery (SDC) | payer OTHER | END 2024-08-18 23:26 | disposition home or self-care (01) | LOC: WOUND 02:03 | DX: E11.621 Type 2 diabetes mellitus with foot ulcer (principal); L97.515 Non-pressure chronic ulcer of other part of right foot with muscle involvement without evidence of necrosis; I87.2 Venous insufficiency (chronic) (peripheral); E11.51 Type 2 diabetes mellitus with diabetic peripheral angiopathy without gangrene ==

== ENCOUNTER 2024-08-25 01:21 | Day surgery (SDC) | payer OTHER | END 2024-08-25 23:02 | disposition home or self-care (01) | LOC: WOUND 01:21 | DX: E11.621 Type 2 diabetes mellitus with foot ulcer (principal); L97.513 Non-pressure chronic ulcer of other part of right foot with necrosis of muscle; I87.2 Venous insufficiency (chronic) (peripheral); E11.51 Type 2 diabetes mellitus with diabetic peripheral angiopathy without gangrene ==

== ENCOUNTER 2024-09-01 03:38 | Day surgery (SDC) | payer OTHER | END 2024-09-01 23:32 | disposition home or self-care (01) | LOC: WOUND 03:38 | DX: E11.621 Type 2 diabetes mellitus with foot ulcer (principal); L97.515 Non-pressure chronic ulcer of other part of right foot with muscle involvement without evidence of necrosis; I87.2 Venous insufficiency (chronic) (peripheral); E11.51 Type 2 diabetes mellitus with diabetic peripheral angiopathy without gangrene ==

== ENCOUNTER 2024-09-08 03:17 | Day surgery (SDC) | payer OTHER ==
[2024-09-08] MEDS ORDERED: Lidocaine HCl 4% Cream 5 GM ONE (10:46)
== END 2024-09-08 23:00 | disposition home or self-care (01) ==
LOC: WOUND 03:17
DX: E11.621 Type 2 diabetes mellitus with foot ulcer (principal); L97.513 Non-pressure chronic ulcer of other part of right foot with necrosis of muscle; I87.2 Venous insufficiency (chronic) (peripheral); E11.51 Type 2 diabetes mellitus with diabetic peripheral angiopathy without gangrene
CPT/HCPCS: A9270

== ENCOUNTER → 2024-09-08 | Outpatient (CLI) | payer OTHER | LOC: LAB 12:21 → LAB SHORT 12:21 | DX: E11.65 Type 2 diabetes mellitus with hyperglycemia (principal) | CPT/HCPCS: 83036 ==

== ENCOUNTER 2024-09-15 04:57 | Day surgery (SDC) | payer OTHER ==
[2024-09-15] MEDS ORDERED: Lidocaine HCl 4% Cream 5 GM ONE (11:15)
== END 2024-09-15 23:00 | disposition home or self-care (01) ==
LOC: WOUND 04:57
DX: E11.621 Type 2 diabetes mellitus with foot ulcer (principal); L97.515 Non-pressure chronic ulcer of other part of right foot with muscle involvement without evidence of necrosis; E11.51 Type 2 diabetes mellitus with diabetic peripheral angiopathy without gangrene; Z89.421 Acquired absence of other right toe(s)
CPT/HCPCS: A9270

== ENCOUNTER 2024-09-29 01:03 | Day surgery (SDC) | payer OTHER ==
[2024-09-29] MEDS ORDERED: Lidocaine HCl 4% Cream 5 GM ONE (10:06)
== END 2024-09-29 22:49 | disposition home or self-care (01) ==
LOC: WOUND 01:03
DX: E11.621 Type 2 diabetes mellitus with foot ulcer (principal); L97.515 Non-pressure chronic ulcer of other part of right foot with muscle involvement without evidence of necrosis; E11.51 Type 2 diabetes mellitus with diabetic peripheral angiopathy without gangrene; I87.2 Venous insufficiency (chronic) (peripheral)
CPT/HCPCS: A9270

== ENCOUNTER 2024-10-06 02:56 | Day surgery (SDC) | payer OTHER ==
[2024-10-06] MEDS ORDERED: Lidocaine HCl 4% Cream 5 GM ONE (10:38)
[2024-10-06] MEDS ORDERED: Silver Nitr/Potassium Nitrate 1 EA APPL ONE (10:54)
== END 2024-10-06 23:00 | disposition home or self-care (01) ==
LOC: WOUND 02:56
DX: E11.621 Type 2 diabetes mellitus with foot ulcer (principal); L97.515 Non-pressure chronic ulcer of other part of right foot with muscle involvement without evidence of necrosis; E11.51 Type 2 diabetes mellitus with diabetic peripheral angiopathy without gangrene; I87.2 Venous insufficiency (chronic) (peripheral); Z89.421 Acquired absence of other right toe(s)
CPT/HCPCS: A9270

== ENCOUNTER 2024-10-13 03:27 | Day surgery (SDC) | payer OTHER ==
[2024-10-13] MEDS ORDERED: Lidocaine HCl 4% Cream 5 GM ONE (10:57)
== END 2024-10-13 23:55 | disposition home or self-care (01) ==
LOC: WOUND 03:27
DX: E11.621 Type 2 diabetes mellitus with foot ulcer (principal); L97.515 Non-pressure chronic ulcer of other part of right foot with muscle involvement without evidence of necrosis; I87.2 Venous insufficiency (chronic) (peripheral); I73.9 Peripheral vascular disease, unspecified
CPT/HCPCS: A9270; G0463

== ENCOUNTER 2024-10-20 05:18 | Day surgery (SDC) | payer OTHER ==
[2024-10-20] MEDS ORDERED: Lidocaine HCl 4% Cream 5 GM ONE (08:41)
[2024-10-20] MEDS ORDERED: Silver Nitr/Potassium Nitrate 1 EA APPL ONE (09:00)
== END 2024-10-20 23:00 | disposition home or self-care (01) ==
LOC: WOUND 05:18
DX: E11.621 Type 2 diabetes mellitus with foot ulcer (principal); L97.515 Non-pressure chronic ulcer of other part of right foot with muscle involvement without evidence of necrosis; E11.51 Type 2 diabetes mellitus with diabetic peripheral angiopathy without gangrene; I87.2 Venous insufficiency (chronic) (peripheral); E11.40 Type 2 diabetes mellitus with diabetic neuropathy, unspecified; Z89.421 Acquired absence of other right toe(s)
CPT/HCPCS: A9270

== ENCOUNTER 2024-10-30 10:02 | Emergency (ER) | payer OTHER ==
[~2024-10-30] VITALS: Ht 165.1 cm; Wt 108.9 kg
[2024-10-30 10:11] VITALS: BP 178/83
[2024-10-30] MEDS ORDERED: Ondansetron 4 MG SoluTab SL ONE (11:20)
[2024-10-30] MEDS ORDERED: ONDA4ODT MM (12:21)
== END 2024-10-30 12:36 | disposition home or self-care (01) ==
LOC: ER 10:02
DX: S06.0X0A Concussion without loss of consciousness, initial encounter (principal); E11.9 Type 2 diabetes mellitus without complications; Z88.7 Allergy status to serum and vaccine; Z79.899 Other long term (current) drug therapy; Z79.4 Long term (current) use of insulin; Z79.84 Long term (current) use of oral hypoglycemic drugs; W18.30XA Fall on same level, unspecified, initial encounter
CPT/HCPCS: 70450; 72125; 99283-25; A9270

== ENCOUNTER 2024-11-01 15:05 | Inpatient (IN) | payer OTHER ==
[~2024-11-01] VITALS: Ht 165.1 cm; Wt 103.5 kg
[~2024-11-01 15:05] MED LIST changes: +ONDA4ODT MM
[2024-11-01 16:12] LABS: BASOPHILS ABSOLUTE AUTO 0.04 K/mm3 (0.00-0.23); BASOPHILS PERCENT AUTO 0 % (0-2); EOSINOPHILS ABSOLUTE AUTO 0.05 K/mm3 (0.00-0.68); EOSINOPHILS PERCENT AUTO 0 % (0-6); Hematocrit 34.6 % (33.0-51.0); Hemoglobin 11.5 g/dL (11.5-16.0); IMMATURE GRAN ABSOLUTE AUTO 0.32 K/mm3 (0.00-0.10); IMMATURE GRAN PERCENT AUTO 1 % (0-1); LYMPHOCYTES ABSOLUTE AUTO 0.68 K/mm3 (0.84-5.20); LYMPHOCYTES PERCENT AUTO 3 % (21-46); MONOCYTES PERCENT AUTO 5 % (4-13); Mean Corpuscular HGB 27.4 pg (26.0-34.0); Mean Corpuscular HGB Conc 33.2 g/dL (31.5-36.5); Mean Corpuscular Volume 82 fL (80-100); Mean Platelet Volume 10.7 fL (9.1-12.4); NEUTROPHILS ABSOLUTE AUTO 21.73 K/mm3 (1.96-9.15); NEUTROPHILS PERCENT AUTO 91 % (41-73); Platelet Count 218 K/mm3 (150-400); RDW Coefficient Variation 13.8 % (11.7-14.2); RDW Standard Deviation 41.2 fL (35.1-46.3); White Blood Cell Count 23.92 K/mm3 (4.00-11.30)
[2024-11-01 16:32] LABS: Albumin, Blood 2.6 g/dL (3.4-5.0); Albumin/Globulin Ratio 0.5 (0.8-1.8); Bilirubin, Total 0.8 mg/dL (0.1-1.0); Calcium, Blood 8.8 mg/dL (8.5-10.1); Creatinine, Blood 1.73 mg/dL (0.40-1.00); Globulin, Blood 5.7 g/dL (2.2-4.0); Potassium, Blood 4.1 mmol/L (3.5-5.5); Total Protein, Blood 8.3 g/dL (6.4-8.2)
[2024-11-01] MEDS ORDERED: CeFAZolin 1000MG in D5W 50 ML IV ONE (20:15)
[2024-11-01] MEDS ORDERED: Lactated Ringer's 1,000 ML IV ONE ×2 (20:15→21:00)
[2024-11-01] MEDS ORDERED: CeFAZolin Sodium 1,000 MG in NS 50 ML IV ONE (20:20)
[2024-11-01] MEDS ORDERED: Acetaminophen 325 MG TABLET PO ONE (20:25)
[2024-11-01 20:49] LABS: Base Excess Venous -6.6 mmol/L; PCO2 Venous 38.4 mmHg (38-42); pH Blood Venous 7.32 (7.34-7.37)
[2024-11-01] MEDS ORDERED: Ondansetron HCl 2 MG / ML 2ML Vial IV PRN (20:50)
[2024-11-01] MEDS ORDERED: Lactated Ringer's 1,000 ML IV SCH (20:55)
[2024-11-01] MEDS ORDERED: FLU VACC TS2024-25(6MOS UP)/PF 45 MCG/0.5 ML SYRINGE IM ONE (20:55)
[2024-11-01] MEDS ORDERED: Lactobacil 2-S.Thermo-Bifido 1 1 Cap PO SCH (21:00)
[2024-11-01] MEDS ORDERED: Insulin Human Lispro 100 Units/ML 3ML Syringe SC ONE (21:00)
[2024-11-01] MEDS ORDERED: Insulin Glargine-Yfgn 100 Unit/mL 3 ML SYR SC SCH (21:00)
[2024-11-01 21:06] LABS: Beta-hydroxybutyrate 30.1 mg/dL (0.2-2.8)
[2024-11-01 21:23] LABS: Bun/Creatinine Ratio 14.3 (12.0-20.0); Creatinine, Blood 1.96 mg/dL (0.40-1.00); Potassium, Blood 4.2 mmol/L (3.5-5.5)
[2024-11-01 22:19] LABS: Source, Urine Clean Catch
[2024-11-01 22:32] LABS: Bilirubin, Urine Neg (Neg); Blood, Urine 4+ (Neg); Glucose Qualitative, Urine 4+ (Neg); Ketones, Urine 3+ (Neg); Leukocyte Esterase, Urine 3+ (Neg); Nitrite, Urine Neg (Neg); Protein, Urine 4+ (Neg); Urobilinogen, Urine NORM (Normal)
[2024-11-01 22:50] VITALS: BP 155/79
[2024-11-01 22:52] LABS: Appearance, Urine Hazy (Clear); Color, Urine Yellow (P-Yellow)
[2024-11-01 22:53] LABS: Amorphous Mod (0-Heavy); Bacteria Mod /hpf; Red Blood Cells, Urine 0-2 /hpf (0-2); White Blood Cells, Urine TNTC /hpf (0-5)
[2024-11-01 22:54] LABS: Squamous Epithelial Cells Rare /hpf (Few)
[2024-11-02] MEDS ORDERED: Acetaminophen 325 MG TABLET PO PRN (00:15)
--- NOTE | 2024-11-02 00:15 | NUR ---
MD NOTIFICATION DR. SANTOS NOTIFIED OF PT'S TEMP OF 101.2,HR 101-110 BPM,REQUIRING 4L OF OXYGEN TO KEEP OXYGEN SATURATION >91% AND ELEVATED BG. STATES THAT HE WILL PLACE AN ORDER FOR TYLENOL AND WILL COME TO SEE PT AT BEDSIDE.
[2024-11-02] MEDS ORDERED: CeFAZolin Sodium 1,000 MG in NS 50 ML IV ONE (00:35)
--- NOTE | 2024-11-02 01:25 | NUR ---
ARRIVAL TO UNIT PT ARRIVED AT 2230 FROM ED VIA CART.TRANSFERRED TO BED USING SLIDING SHEET AND THREE STAFF ASSIST.PT CAME IN WITH LR INFUSING VIA GRAVITY,NEW ORDERS FOR LR INFUSION RECEIVED.TWO RN SKIN ASSESSMENT COMPLETED.WOUND TO RLE AMPUTATION SITE MEASURED AND PHOTOGRAGHED.WOUND MEASURING 6.5CM X 2CM.YELLOW SLOUGH NOTED IN THE WOUND BED,NO DRAINAGE NOTED.WOUND DRESSED WITH KERLIX AND SECURED WITH TAPE.RLE SWOLLEN, REDDENED AREA OUTLINED.PT C/O OF PAIN TO RLE WITH TOUCH.OFFLOADING BOOTS APPLIED TO BOTH FEET.
[2024-11-02 03:57] VITALS: BP 123/62
[2024-11-02 04:02] LABS: Hematocrit 31.4 % (33.0-51.0); Hemoglobin 10.5 g/dL (11.5-16.0); Mean Corpuscular HGB 27.6 pg (26.0-34.0); Mean Corpuscular HGB Conc 33.4 g/dL (31.5-36.5); Mean Corpuscular Volume 83 fL (80-100); Mean Platelet Volume 10.7 fL (9.1-12.4); Platelet Count 176 K/mm3 (150-400); RDW Coefficient Variation 13.6 % (11.7-14.2); RDW Standard Deviation 41.2 fL (35.1-46.3); White Blood Cell Count 17.33 K/mm3 (4.00-11.30)
[2024-11-02 04:21] LABS: International Normalized Ratio 1.02; Prothrombin Time Results 10.9 Sec (9.7-11.5)
[2024-11-02 04:31] LABS: Albumin, Blood 2.1 g/dL (3.4-5.0); Albumin/Globulin Ratio 0.4 (0.8-1.8); Bilirubin, Total 0.4 mg/dL (0.1-1.0); Bun/Creatinine Ratio 17.3 (12.0-20.0); Calcium, Blood 8.5 mg/dL (8.5-10.1); Creatinine, Blood 1.73 mg/dL (0.40-1.00); Globulin, Blood 4.8 g/dL (2.2-4.0); Magnesium, Blood 1.8 mg/dL (1.6-2.4); Potassium, Blood 3.8 mmol/L (3.5-5.5); Total Protein, Blood 6.9 g/dL (6.4-8.2)
[2024-11-02 04:40] LABS: BAND PERCENT MAN 20 % (0-8); BASOPHILS PERCENT MAN 0 % (0-2); EOSINOPHILS PERCENT MAN 0 % (0-6); LYMPHOCYTES ABSOLUTE MAN 0.51 K/mm3 (0.84-5.20); LYMPHOCYTES PERCENT MAN 3 % (21-46); MONOCYTES ABSOLUTE MAN 0.69 K/mm3 (0.16-1.47); MONOCYTES PERCENT MAN 4 % (4-13); NEUTROPHILS ABSOLUTE MAN 16.11 K/mm3 (1.96-9.15); SEG NEUTROPHILS PERCENT MAN 73 % (41-73); TOTAL CELLS COUNTED 100
[2024-11-02] MEDS ORDERED: Lactated Ringer's 1,000 ML IV SCH (07:10)
--- NOTE | 2024-11-02 07:28 | NUR ---
SHIFT SUMMARY PT SLEPT MOST OF THE NIGHT.OXYGEN TITRATED DOWN TO 2L,OXYGEN SATURATION >92%.PRN ZOFRAN GIVEN FOR NAUSEA.BEDSIDE REPORT COMPLETED WITH INCOMING NURSE,WOUNDS ASSESSED.PT DENIES PAIN,DENIES NEEDS.CALL LIGHT AND PT'S ITEMS WITHIN REACH.
[2024-11-02] MEDS ORDERED: Insulin Human Lispro 100 Units/ML 3ML Syringe SC SCH ×3 (07:30→08:30)
[2024-11-02 07:59] VITALS: BP 158/89
[2024-11-02] MEDS ORDERED: CeFAZolin Sodium 2,000 MG in NS 100 ML IV SCH (08:00)
[2024-11-02 08:48] LABS: Albumin, Blood 2.1 g/dL (3.4-5.0); Anion Gap 13 mmol/L (3-11); Blood Urea Nitrogen 29 mg/dL (8-24); Bun/Creatinine Ratio 17.1 (12.0-20.0); CO2, Blood 22 mmol/L (21-32); Calcium, Blood 8.5 mg/dL (8.5-10.1); Chloride, Blood 96 mmol/L (98-108); Glomerular Filtration Rate 34 (60-); Glucose, Blood 336 mg/dL (70-99); Phosphorus, Blood 2.9 mg/dL (2.5-4.9); Potassium, Blood 3.9 mmol/L (3.5-5.5); Sodium, Blood 127 mmol/L (136-145)
[2024-11-02] MEDS ORDERED: Heparin Sodium 5000 Units/ML 1ML MDV SC SCH (09:00)
[2024-11-02] MEDS ORDERED: Miconazole Nitrate 2% 85 GM PWD TOP SCH (09:00)
[2024-11-02] MEDS ORDERED: OxyCODONE HCL 5 MG TAB PO PRN (10:40)
[2024-11-02] MEDS ORDERED: Pregabalin 75 MG Cap PO SCH (11:00)
[2024-11-02 11:18] VITALS: BP 125/86
[2024-11-02] MEDS ORDERED: NS 1,000 ML IV SCH (12:45)
[2024-11-02 16:01] VITALS: BP 150/82
--- NOTE | 2024-11-02 18:31 | NUR ---
SHIFT SUMMARY PT A&O X4, ABLE TO MAKE NEEDS KNOWN, OBEYS COMMANDS, ABLE TO AMBULATE ONE PERSON ASSIST TO BSC/BASLINE PT REPORTS BEING IND USING A BOOT ON THE RIGHT FOOT, RIGHT FOOT PARTIAL AMPULATION, DELAYED SPEECH/ APPROPRIATE CONVERSATION. CONTINUOUS SPO2, SPO2 GREATER THAN 90% ON 1L O2 VIA NC, LUNGS SOUND CLEAR T/O. CONTINUOUS TELE MONITORING, SINUS RHYTHM, HR 80-100 S, PULSES PRESENT T/O. PT UP TO BSC TO VOID/URINE KARISSA IN COLOR AND CLOUDY. NO BM THIS SHIFT, BOWEL TONES PRESENT IN ALL 4Q, PT REPORTING NAUSEA THAT IMPROVED WITH ZOFRAN. PT HAS RIGHT REDNESS THAT IS MARKED ON THE RIGHT LOWE LEG/REDNESS HAS NOT EXCEDED THE MARKINGS, PT HAS OLD SURGICAL WOUND THAT IS SLOW TO HEAL THAT SHE GOES TO THE WOUND CLINIC AT [facility] FOR DRESSING CHANGES, DRESSING CHANGED COMPLETED THIS SHIFT PER ORDERS. PT REPORTING PAIN THE START OF SHIFT THAT WAS MEDICATED WITH TYLENOL/ PT REPORTED NO PAIN THE REST OF THE SHIFT UNLESS HER RIGHT LOWE LEG IS BEING TOUCHED. T-MAX THIS SHIFT 101.1 CBG S FROM 336 AT START OF THIS SHIFT TO 154, MADE AWARE 13 UNITS OF INSULIN HELD PER .
[2024-11-02 19:46] VITALS: BP 144/68
--- NOTE | 2024-11-02 19:49 | NUR ---
ASSUMPTION OF CARE Assumed pts care at 1900.Bedside report completed with dayshift nurse.Plan of care reviewed with pt.Pt reports feeling weak.Denies pain,denies discomfort,denies needs.Call light and pt's items within reach.Will continue to monitor.
[2024-11-02] MEDS ORDERED: Insulin Glargine-Yfgn 100 Unit/mL 3 ML SYR SC SCH ×2 (21:00)
[2024-11-02] MEDS ORDERED: Insulin Glargine-Yfgn 100 Unit/mL 3 ML SYR SC ONE (21:15)
--- NOTE | 2024-11-02 21:33 | NUR ---
MD NOTIFICATION AT 2100 NOTIFIED OF PT'S BLOOD GLUCOSE OF 189MG/DL.PT SCHEDULED TO RECEIVE 80UNITS OF LONG ACTING INSULIN LANTUS.PT STATES THAT HOME DOSE IS 40 UNITS.ORDER GIVEN TO GIVE 20 UNITS.
[2024-11-03] VITALS (24 sets, daily range): BP systolic 106–165; BP diastolic 64–98
[2024-11-03 04:15] LABS: Hematocrit 30.8 % (33.0-51.0); Hemoglobin 10.2 g/dL (11.5-16.0); Mean Corpuscular HGB 27.6 pg (26.0-34.0); Mean Corpuscular HGB Conc 33.1 g/dL (31.5-36.5); Mean Corpuscular Volume 83 fL (80-100); Mean Platelet Volume 10.7 fL (9.1-12.4); Platelet Count 181 K/mm3 (150-400); RDW Coefficient Variation 13.9 % (11.7-14.2); RDW Standard Deviation 42.6 fL (35.1-46.3); White Blood Cell Count 21.41 K/mm3 (4.00-11.30)
--- NOTE | 2024-11-03 04:36 | NUR ---
BLOOD CULTURE RESULTS NOTIFIED THAT PTS SECOND SET OF BLOOD CULTURE POSITIVE FOR GRAM POSITIVE COCCI IN CHAINS. STATES THAT HE WILL LOOK AT THE RESULTS.
[2024-11-03 05:01] LABS: BAND PERCENT MAN 3 % (0-8); BASOPHILS PERCENT MAN 0 % (0-2); EOSINOPHILS ABSOLUTE MAN 0.21 K/mm3 (0.00-0.68); EOSINOPHILS PERCENT MAN 1 % (0-6); LYMPHOCYTES ABSOLUTE MAN 0.64 K/mm3 (0.84-5.20); LYMPHOCYTES PERCENT MAN 3 % (21-46); MONOCYTES ABSOLUTE MAN 1.92 K/mm3 (0.16-1.47); MONOCYTES PERCENT MAN 9 % (4-13); NEUTROPHILS ABSOLUTE MAN 18.62 K/mm3 (1.96-9.15); SEG NEUTROPHILS PERCENT MAN 84 % (41-73); TOTAL CELLS COUNTED 100
[2024-11-03 05:21] LABS: Albumin, Blood 1.8 g/dL (3.4-5.0); Albumin/Globulin Ratio 0.3 (0.8-1.8); Bilirubin, Total 0.4 mg/dL (0.1-1.0); Creatinine, Blood 1.37 mg/dL (0.40-1.00); Globulin, Blood 5.2 g/dL (2.2-4.0); Potassium, Blood 3.4 mmol/L (3.5-5.5)
[2024-11-03 05:33] LABS: Calcium, Blood 7.3 mg/dL (8.5-10.1)
--- NOTE | 2024-11-03 07:29 | NUR ---
SHIFT SUMMARY PT ON 2L OXYGEN VIA NC WHILE SLEEPING.PT GOT UP TO THE BEDSIDE COMMODE WITH ONE ASSIST AND WALKER TO URINATE.BLE FLOATED ON A PILLOW.NOTED INCREASED SWELLING ON THE RLE AND BLISTERS.SOME OF THE BLISTERS DRAINING,NO OPEN AREAS NOTED.PT GIVEN PRN PAIN MED PER REQUEST THIS MORNING.PT DENIES FURTHER NEEDS.CALL LIGHT AND PT'S ITEMS WITHIN REACH.
[2024-11-03] MEDS ORDERED: Vancomycin HCL 2,500 MG in NS 500 ML IV ONE (07:55)
[2024-11-03] MEDS ORDERED: Clindamycin 600mg in D5W 50 ML IV SCH (08:08)
[2024-11-03] MEDS ORDERED: Piperacillin/Tazobactam Sod 3.375 GM in NS 100 ML IV SCH (08:11)
[2024-11-03] MEDS ORDERED: Insulin Human Lispro 100 Units/ML 3ML Syringe SC SCH (08:30)
[2024-11-03] MEDS ORDERED: Potassium Chloride 20 MEQ TabCR PO SCH (09:00)
[2024-11-03] MEDS ORDERED: NS 250 ML IV PRN (11:10)
[2024-11-03] MEDS ORDERED: Sodium Hypochlorite 480 ML BTL (0.25%) TOP ONE (12:25)
[2024-11-03] MEDS ORDERED: Ondansetron HCl 2 MG / ML 2ML Vial ONE (13:16)
[2024-11-03] MEDS ORDERED: propofoL 20 ML IV ONE ×2 (13:16→14:04)
[2024-11-03] MEDS ORDERED: FentaNYL Citrate 50 MCG/ML 5 ML Injection ONE (13:16)
[2024-11-03] MEDS ORDERED: Dexamethasone Sod Phos 10 MG/ML 1ML VIAL ONE (13:16)
[2024-11-03] MEDS ORDERED: Rocuronium Bromide 10 MG/ML 5ML Injection IV ONE (13:16)
[2024-11-03] MEDS ORDERED: Lactated Ringer's 1,000 ML IV ONE (13:50)
[2024-11-03] MEDS ORDERED: Bisacodyl 10 MG Supp PR PRN (14:10)
[2024-11-03] MEDS ORDERED: NS KCl 20mEq 1,000 ML IV SCH (14:15)
[2024-11-03] MEDS ORDERED: Magnesium Hydroxide Conc 10 ML UDC PO PRN (14:15)
[2024-11-03] MEDS ORDERED: FLU VACC TS2024-25(6MOS UP)/PF 45 MCG/0.5 ML SYRINGE IM SCH (14:15)
[2024-11-03] MEDS ORDERED: Tranexamic Acid 1,000 MG in NS 100 ML IV SCH (14:20)
[2024-11-03] MEDS ORDERED: Tranexamic Acid 100 ML IV ONE (15:07)
[2024-11-03] MEDS ORDERED: Albuterol 2.5 MG/3 ML VIAL ONE (15:55)
[2024-11-03] MEDS ORDERED: Albuterol 2.5 MG/3 ML VIAL INH PRN (16:45)
--- NOTE | 2024-11-03 19:20 | NUR ---
Shift Summary Pt alert, oriented x3; calm and cooperative with care. Responses delayed at time. Pt reports pain, medicated per mear. Pt denies chest pain/pressure, nausea, dizziness and numb tingling. Right lower extremity swelling noted, redness has not exceeded previous outline, blistering to inner calf draining and crepitus noted around blistering, blood blister noted to outer heel; MDs at bedside during assessment finding, Dr Quiroga consulted; plans for bka this afternoon. Sp02 >90% on 2l o2 via nc, ls dim. Tele sinus/sinus tach 90-110's, bp elevated but stable. Abd soft, nontneder + bt', no bm noted. Edema to ble, worse on right. Pt back from procedure at 1630 with R BKA, dressing and stump stock in place. Elevated, ice placed. Pt has audible wheezes, and wheezing in bilateral upper lobes, dim bases, notified MD, new order entered for breathing treatments and I/S. Started NS with KCl and continued antibiotics. Pt reporting being numb due to spinal block. VSS. Report given to oncoming rn.
[2024-11-03] MEDS ORDERED: Insulin Glargine-Yfgn 100 Unit/mL 3 ML SYR SC SCH ×2 (21:00)
[2024-11-03] MEDS ORDERED: Docusate Sodium 100 MG Cap PO SCH (21:00)
[2024-11-03] MEDS ORDERED: HYDROmorphone HCl/Pf 1MG SYR IV PRN (21:25)
[2024-11-04] VITALS (13 sets, daily range): BP systolic 128–166; BP diastolic 73–85
[2024-11-04 03:51] LABS: BASOPHILS ABSOLUTE AUTO 0.07 K/mm3 (0.00-0.23); BASOPHILS PERCENT AUTO 0 % (0-2); EOSINOPHILS ABSOLUTE AUTO 0.12 K/mm3 (0.00-0.68); EOSINOPHILS PERCENT AUTO 1 % (0-6); Hematocrit 28.1 % (33.0-51.0); Hemoglobin 9.3 g/dL (11.5-16.0); IMMATURE GRAN ABSOLUTE AUTO 0.49 K/mm3 (0.00-0.10); IMMATURE GRAN PERCENT AUTO 2 % (0-1); LYMPHOCYTES ABSOLUTE AUTO 1.22 K/mm3 (0.84-5.20); LYMPHOCYTES PERCENT AUTO 6 % (21-46); MONOCYTES ABSOLUTE AUTO 1.72 K/mm3 (0.16-1.47); MONOCYTES PERCENT AUTO 8 % (4-13); Mean Corpuscular HGB 27.8 pg (26.0-34.0); Mean Corpuscular HGB Conc 33.1 g/dL (31.5-36.5); Mean Corpuscular Volume 84 fL (80-100); Mean Platelet Volume 10.8 fL (9.1-12.4); NEUTROPHILS PERCENT AUTO 84 % (41-73); Platelet Count 182 K/mm3 (150-400); RDW Coefficient Variation 14.2 % (11.7-14.2); RDW Standard Deviation 43.7 fL (35.1-46.3); Red Blood Cell Count 3.35 M/mm3 (3.80-5.20); White Blood Cell Count 22.12 K/mm3 (4.00-11.30)
[2024-11-04 04:09] LABS: Bun/Creatinine Ratio 18.9 (12.0-20.0); C-REACTIVE PROTEIN, EXT RANGE 18.6 mg/dL (0.000-0.300); Calcium, Blood 7.8 mg/dL (8.5-10.1); Creatinine, Blood 1.85 mg/dL (0.40-1.00); Magnesium, Blood 2.2 mg/dL (1.6-2.4)
--- NOTE | 2024-11-04 04:52 | NUR ---
SHIFT SUMMARY. SHIFT HAS BEEN UNREMARKABLE. PT AOX3-4, PLEASANT, COOPERATIVE WITH CARE, ABLE TO MAKE NEEDS KNOWN. HAS BEEN BEDREST THROUGHOUT SHIFT WITH PUREWICK IN PLACE. RLE HAS BEEN ELEVATED AND ICED THROUGHOUT SHIFT. PAIN WAS SEVERE EARLY IN SHIFT, SPOKE WITH DR. CHERY WHO ORDERED 1-2 MG DILAUDID Q2 FOR PAIN MANAGEMENT. ADMINISTERED 1 MG ONE TIME AND SINCE THAT TIME PT HAS NOT REPORTED PAIN. RLE DRESSING HAS NOT SATURATED THROUGH AND REMAINS C/D/I. VITALS HAVE REMAINED STABLE. SATURATES WELL ON ROOM AIR WHILE AWAKE, PUT ON 2 L O2 VIA NC WHILE SLEEPING. CONTINUES TO RUN SINUS ON TELE. HAS BEEN NPO SINCE MIDNIGHT PENDING POSSIBLE FOLLOW UP SURGICAL OPERATION. BED LOCKED IN LOWEST POSITION. CALL LIGHT LEFT WITHIN REACH. CONTINUING TO MONITOR.
[2024-11-04 05:47] LABS: Albumin, Blood 1.6 g/dL (3.4-5.0); Albumin/Globulin Ratio 0.3 (0.8-1.8); Bilirubin, Total 0.4 mg/dL (0.1-1.0); Globulin, Blood 4.9 g/dL (2.2-4.0); Total Protein, Blood 6.5 g/dL (6.4-8.2)
[2024-11-04] MEDS ORDERED: Vancomycin HCL 1,750 MG in NS 500 ML IV SCH (08:00)
[2024-11-04] MEDS ORDERED: Piperacillin/Tazobactam Sod 3.375 GM in NS 100 ML IV SCH (12:00)
[2024-11-04] MEDS ORDERED: Lactated Ringer's 1,000 ML IV SCH (14:00)
[2024-11-04] MEDS ORDERED: FentaNYL Citrate 50 MCG/ML 5 ML Injection ONE (14:16)
[2024-11-04] MEDS ORDERED: propofoL 20 ML IV ONE (14:16)
[2024-11-04] MEDS ORDERED: Rocuronium Bromide 10 MG/ML 5ML Injection IV ONE (14:16)
[2024-11-04] MEDS ORDERED: Dexamethasone Sod Phos 10 MG/ML 1ML VIAL ONE (14:16)
[2024-11-04] MEDS ORDERED: Ondansetron HCl 2 MG / ML 2ML Vial ONE (14:16)
[2024-11-04] MEDS ORDERED: Sugammadex Sodium 200 MG/2ML SDV (100 MG/ML) ONE (14:16)
--- NOTE | 2024-11-04 16:31 | NUR ---
PT RETURNED TO PCU FROM PACU. REPORT RECIEVED FROM JESSICA MIRANDA. PT REMAINED IN PCU BED. HR IN THE 90'S, SINUS RHYTHM. O2 >92% ON 3L VIA NC, RR 20, BREATHING EVEN AND UNLABORED. PT DROWSEY, RESTING IN BED. DRESSING COVERING R BKA. DRESSING C/D/I. FLUIDS RUNNING PER ORDER.
--- NOTE | 2024-11-04 18:32 | NUR ---
SHIFT SUMMARY PT A&O X4, CALM, COOPERATIVE TO CARE. PT WITH DELAYED RESPONSE BUT ANSWERS QUESTION APPROPRIATELY. SHE IS ABLE TO EXPRESS NEEDS. HR IN THE 80'S, SINUS RHYTHM, DENIES CP/PRESSURE, NUMB/TINGLING, SBP STABLE. O2 >92% ON RA-2L. PT WITH R BKA. PT NPO T/O SHIFT FOR WASHOUT OF WOUND. WASHOUT COMPLETED AND WOUND CLOSED. DRESSING IN PLACE, C/D/I. LIMB ELEVATED ON PILLOW. PT WITH PAIN OF THE LIMB, MEDICATING PER EMAR. PT RECEIVING IV ABX. PT DENIES ANY QUESTIONS AT THIS TIME. WILL MONITOR PT AND REPORT TO FINANCIAL PLANNING ADVISER RN.
[2024-11-05] VITALS (23 sets, daily range): BP systolic 125–177; BP diastolic 67–86
--- NOTE | 2024-11-05 05:06 | NUR ---
SHIFT SUMMARY. SHIFT HAS BEEN UNREMARKABLE. PT AOX3-4, PLEASANT, COOPERATIVE WITH CARE, ABLE TO MAKE NEEDS KNOWN. HAS BEEN ABLE TO REST COMFORTABLY THROUGHOUT MUCH OF SHIFT. CONTINUES TO RUN SINUS ON TELE. VITALS STABLE. HAS MAINTAINED ADEQUATE SATURATION ON 2 L O2 VIA NC THROUGHOUT SHIFT. PAIN ADEQUATELY MANAGED VIA EMAR. ABX ADMINISTERED ON SCHEDULE. FLUIDS INFUSING THROUGHOUT SHIFT. BED LOCKED IN LOWEST POSITION. CALL LIGHT LEFT WITHIN REACH. CONTINUING TO MONITOR.
[2024-11-05 07:29] LABS: Albumin, Blood 1.7 g/dL (3.4-5.0); Albumin/Globulin Ratio 0.4 (0.8-1.8); Bilirubin, Total 0.4 mg/dL (0.1-1.0); Bun/Creatinine Ratio 17.1 (12.0-20.0); Calcium, Blood 7.3 mg/dL (8.5-10.1); Creatinine, Blood 2.11 mg/dL (0.40-1.00); Globulin, Blood 4.8 g/dL (2.2-4.0); Potassium, Blood 4.3 mmol/L (3.5-5.5); Total Protein, Blood 6.5 g/dL (6.4-8.2)
[2024-11-05 07:32] LABS: Vancomycin, Trough 25.6 ug/mL (5.0-10.0)
[2024-11-05 08:29] LABS: Hematocrit 27.6 % (33.0-51.0); Hemoglobin 8.7 g/dL (11.5-16.0); Mean Corpuscular HGB Conc 31.5 g/dL (31.5-36.5); Mean Corpuscular Volume 86 fL (80-100); Mean Platelet Volume 10.4 fL (9.1-12.4); Platelet Count 269 K/mm3 (150-400); RDW Coefficient Variation 14.6 % (11.7-14.2); RDW Standard Deviation 46.5 fL (35.1-46.3); Red Blood Cell Count 3.22 M/mm3 (3.80-5.20); White Blood Cell Count 21.35 K/mm3 (4.00-11.30)
[2024-11-05 09:04] LABS: BAND PERCENT MAN 5 % (0-8); BASOPHILS PERCENT MAN 0 % (0-2); EOSINOPHILS ABSOLUTE MAN 0.21 K/mm3 (0.00-0.68); EOSINOPHILS PERCENT MAN 1 % (0-6); LYMPHOCYTES ABSOLUTE MAN 1.28 K/mm3 (0.84-5.20); LYMPHOCYTES PERCENT MAN 6 % (21-46); MONOCYTES ABSOLUTE MAN 0.64 K/mm3 (0.16-1.47); MONOCYTES PERCENT MAN 3 % (4-13); MYELOCYTE ABSOLUTE MAN 0.85 K/mm3 (0.00-0.00); MYELOCYTE PERCENT MAN 4 % (0-0); NEUTROPHILS ABSOLUTE MAN 18.36 K/mm3 (1.96-9.15); SEG NEUTROPHILS PERCENT MAN 81 % (41-73); TOTAL CELLS COUNTED 100
[2024-11-05] MEDS ORDERED: NS 1,000 ML IV SCH (09:30)
[2024-11-05] MEDS ORDERED: Lidocaine 2% Viscous Soln 15 ML UDC MT SCH (12:25)
[2024-11-05] MEDS ORDERED: Lidocaine 2% Viscous Soln 20 ML,Nystatin 100,000 Unit/ml Susp 20 ML,Mag Hydrox/Al Hydro... MT PRN (12:30)
[2024-11-05] MEDS ORDERED: Lactated Ringer's 1,000 ML IV SCH (13:15)
--- NOTE | 2024-11-05 13:42 | NUR ---
PT LEFT FOR PROCEDURE VIA PCU BED AROUND 1300.
--- NOTE | 2024-11-05 14:00 | NUR ---
PT HAS 20G IV IN R WRIST THAT SHOWS NO SIGNS OF INFILTRATION AND FLOWS WELL TO GRAVITY.
[2024-11-05] MEDS ORDERED: Midazolam HCl 1MG / ML 2ML Vial ONE (14:07)
[2024-11-05] MEDS ORDERED: propofoL 20 ML IV ONE (14:09)
[2024-11-05] MEDS ORDERED: FentaNYL Citrate 50 MCG/ML 2 ML Injection ONE ×2 (14:12→15:03)
[2024-11-05] MEDS ORDERED: Midazolam HCl 1MG / ML 2ML Vial IV ONE (14:15)
--- NOTE | 2024-11-05 14:38 | NUR ---
11/05/24 1438 Flavio Sosa PT ON SCHEDULED ANTIBIOTICS
[2024-11-05] MEDS ORDERED: Ondansetron HCl 2 MG / ML 2ML Vial ONE (14:49)
[2024-11-05] MEDS ORDERED: Albuterol 2.5 MG/3 ML VIAL ONE (15:53)
--- NOTE | 2024-11-05 16:47 | NUR ---
BACK FROM OR PT BACK TO ROOM AT APPROXIMATELY 1640. PT ARRIVED ON HOSPITAL BED. A&Ox4, COMMUNICATING NEEDS APPROPRIATELY, A LITTLE DROWSY FROM PROCEDURE. BP STABLE, SINUS 90'S, DENIES CP/PRESSURE. SpO2> 92% 5L VIA NC, DENIES SOB. REPORTING 8/10 PAIN IN RLE. R BKA DRESSING C/D/I. CALL LIGHT IN REACH.
[2024-11-05 17:41] LABS: Vancomycin, Random 21.4 ug/mL
--- NOTE | 2024-11-05 18:24 | NUR ---
SHIFT SUMMARY PT A&O X4, ANXIOUS AT TIMES. SINUS RHYTHM IN THE 80'S, DENIES CP/PRESSURE, NUMB/TINGLING, SBP STABLE. O2 >92% ON 2-3L VIA NC, DENIES SOB, L/S WITH EXP WHEEZES IN THE UPPER LOBES, AND DIM IN LOWER LOBES. PT RETURNED TO OR TODDAY FOR WASHOUT OF R BKA. PT LEFT FOR OR VIA PCU BED AND RETUNED AROUND 1600. PT WITH R LIMB PAIN, MEDICATING PER EMAR. DENTAL HYGENTIST TO BEDSIDE TO EXAM PT. PT WITH MULTIPLE SORE IN AND AROUND MOUTH, PROVIDER NOTIFIED, MOUTHWASH AND TOPICAL OINTMENT ORDERED. PT RESTING IN BED AT THIS TIME. SHE DENIES ANY QUESTIONS OR CONCERNS AT THIS TIME. WILL MONITOR PT AND REPORT TO CAFE ASSISTANT RN.
[2024-11-05 19:42] LABS: Hematocrit 28.1 % (33.0-51.0); Hemoglobin 8.5 g/dL (11.5-16.0)
[2024-11-05] MEDS ORDERED: Acyclovir Ointment 15 gm TOP SCH (21:00)
[2024-11-06 00:51] VITALS: BP 128/93
[2024-11-06 04:51] VITALS: BP 140/71
--- NOTE | 2024-11-06 05:01 | NUR ---
SHIFT SUMMARY. SHIFT HAS GONE WELL OVERALL. PT AOX3-4, COOPERATIVE, ABLE TO MAKE NEEDS KNOWN. HAS BEEN ABLE TO REST COMFORTABLY THROUGHOUT MOST OF SHIFT. PAIN HAS BEEN ADEQUATELY MANAGED VIA EMAR. VITALS HAVE BEEN STABLE. PT HAS MAINTAINED ADEQUATE SATURATION ON 2-3 L O2 VIA NC THROUGHOUT SHIFT. PUREWICK IN PLACE THROUGHOUT SHIFT, OUTPUT CHARTED APPROPRIATELY. FLUIDS INFUSING THROUGHOUT SHIFT. NPO AFTER 0000. BED LOCKED IN LOWEST POSITION. CALL LIGHT LEFT WITHIN REACH. CONTINUING TO MONITOR.
[2024-11-06 05:29] LABS: Hematocrit 24.9 % (33.0-51.0); Hemoglobin 7.8 g/dL (11.5-16.0); Mean Corpuscular HGB 27.4 pg (26.0-34.0); Mean Corpuscular HGB Conc 31.3 g/dL (31.5-36.5); Mean Corpuscular Volume 87 fL (80-100); Mean Platelet Volume 10.1 fL (9.1-12.4); Platelet Count 298 K/mm3 (150-400); RDW Coefficient Variation 14.9 % (11.7-14.2); RDW Standard Deviation 48.1 fL (35.1-46.3); Red Blood Cell Count 2.85 M/mm3 (3.80-5.20); White Blood Cell Count 23.31 K/mm3 (4.00-11.30)
[2024-11-06 06:14] LABS: BAND PERCENT MAN 3 % (0-8); BASOPHILS PERCENT MAN 0 % (0-2); EOSINOPHILS ABSOLUTE MAN 0.69 K/mm3 (0.00-0.68); EOSINOPHILS PERCENT MAN 3 % (0-6); LYMPHOCYTES ABSOLUTE MAN 2.56 K/mm3 (0.84-5.20); LYMPHOCYTES PERCENT MAN 11 % (21-46); METAMYELOCYTE ABSOLUTE MAN 0.93 K/mm3 (0.00-0.00); METAMYELOCYTE PERCENT MAN 4 % (0-0); MONOCYTES ABSOLUTE MAN 0.93 K/mm3 (0.16-1.47); MONOCYTES PERCENT MAN 4 % (4-13); MYELOCYTE ABSOLUTE MAN 0.93 K/mm3 (0.00-0.00); MYELOCYTE PERCENT MAN 4 % (0-0); NEUTROPHILS ABSOLUTE MAN 17.24 K/mm3 (1.96-9.15); SEG NEUTROPHILS PERCENT MAN 71 % (41-73); TOTAL CELLS COUNTED 100
[2024-11-06 06:20] LABS: Anion Gap 14 mmol/L (3-11); Blood Urea Nitrogen 36 mg/dL (8-24); Bun/Creatinine Ratio 17.1 (12.0-20.0); CO2, Blood 17 mmol/L (21-32); Chloride, Blood 107 mmol/L (98-108); Creatinine, Blood 2.11 mg/dL (0.40-1.00); Glomerular Filtration Rate 26 (60-); Glucose, Blood 234 mg/dL (70-99); Potassium, Blood 3.5 mmol/L (3.5-5.5); Sodium, Blood 134 mmol/L (136-145); Vancomycin, Random 17.3 ug/mL
[2024-11-06] MEDS ORDERED: Vancomycin HCL 1,250 MG in NS 250 ML IV ONE (06:40)
[2024-11-06 07:53] VITALS: BP 151/78
[2024-11-06 12:34] VITALS: BP 176/92
[2024-11-06] MEDS ORDERED: Multivitamins 1 Tab PO SCH (16:15)
[2024-11-06] MEDS ORDERED: Thiamine HCl 100 MG Tab PO SCH (16:15)
[2024-11-06 17:11] VITALS: BP 155/85
--- NOTE | 2024-11-06 18:39 | NUR ---
SHIFT SUMMARY PT A&O X4, CALM, COOPERATIVE TO CARE. SINUS RHYTHM, HR IN THE 90'S. SHE DENIES ANY CP/PRESSURE, NUMB/TINGLING, SBP STABLE. O2 >92% ON 1-2L VIA NC, PT OCASSIONALLY DESATS TO THE 80'S BUT RECOVERS QUICKLY. PT POST RIGHT LIMB BKA. LIMB ELEVATED ON PILLOW. SHE HAS PAIN OF THE LIMB, MEDICATING PER EMAR. NO ACUTE CHANGES T/O SHIFT. PT DENIES ANY QUESTONS OR CONCERNS AT THIS TIME WILL MONITOR PT AND RPEORT TO INDEPENDENT CROP CONSULTANT RN.
[2024-11-06] MEDS ORDERED: Arginine/Glutamine/Calcium Hmb 1 Packet PO SCH (21:00)
[2024-11-06 21:40] VITALS: BP 157/80
[2024-11-07] VITALS (20 sets, daily range): BP systolic 135–201; BP diastolic 68–132
[2024-11-07 03:41] LABS: Hemoglobin 7.4 g/dL (11.5-16.0); Mean Corpuscular HGB Conc 30.8 g/dL (31.5-36.5); Mean Corpuscular Volume 88 fL (80-100); Mean Platelet Volume 9.7 fL (9.1-12.4); NRBC ABSOLUTE 0.04 K/mm3 (0.00-0.02); NRBC Auto 0.2 /100 WBC (0.0-0.2); Platelet Count 339 K/mm3 (150-400); RDW Coefficient Variation 15.1 % (11.7-14.2); RDW Standard Deviation 48.8 fL (35.1-46.3); Red Blood Cell Count 2.74 M/mm3 (3.80-5.20); White Blood Cell Count 25.59 K/mm3 (4.00-11.30)
[2024-11-07 04:04] LABS: BAND PERCENT MAN 11 % (0-8); BASOPHILS PERCENT MAN 0 % (0-2); EOSINOPHILS ABSOLUTE MAN 0.51 K/mm3 (0.00-0.68); EOSINOPHILS PERCENT MAN 2 % (0-6); LYMPHOCYTES ABSOLUTE MAN 3.32 K/mm3 (0.84-5.20); LYMPHOCYTES PERCENT MAN 13 % (21-46); METAMYELOCYTE ABSOLUTE MAN 0.51 K/mm3 (0.00-0.00); METAMYELOCYTE PERCENT MAN 2 % (0-0); MONOCYTES ABSOLUTE MAN 1.79 K/mm3 (0.16-1.47); MONOCYTES PERCENT MAN 7 % (4-13); MYELOCYTE ABSOLUTE MAN 0.51 K/mm3 (0.00-0.00); MYELOCYTE PERCENT MAN 2 % (0-0); NEUTROPHILS ABSOLUTE MAN 18.93 K/mm3 (1.96-9.15); SEG NEUTROPHILS PERCENT MAN 63 % (41-73); TOTAL CELLS COUNTED 100
[2024-11-07 04:15] LABS: Albumin, Blood 1.6 g/dL (3.4-5.0); Albumin/Globulin Ratio 0.3 (0.8-1.8); Bilirubin, Total 0.3 mg/dL (0.1-1.0); Bun/Creatinine Ratio 15.5 (12.0-20.0); Calcium, Blood 6.9 mg/dL (8.5-10.1); Creatinine, Blood 2.2 mg/dL (0.40-1.00); Globulin, Blood 4.8 g/dL (2.2-4.0); Magnesium, Blood 2.4 mg/dL (1.6-2.4); Phosphorus, Blood 3.3 mg/dL (2.5-4.9); Potassium, Blood 3.7 mmol/L (3.5-5.5); Total Protein, Blood 6.4 g/dL (6.4-8.2)
--- NOTE | 2024-11-07 05:30 | NUR ---
SHIFT SUMMARY NEURO: WNL CARDIAC: +2 GENERALIZED EDEMA. NS STILL ORDERED FOR 10ML/HR. SCD TO LLE LUNGS: 1-2L NC. PT ONLY PULLING 250 ML ON INCENTIVE SPIROMETER. MINIMAL EFFORT. GI/: NO BM, PUREWICK IN PLACE HGB TRENDING DOWN, CALCIUM 6.9 INDEPENDENCE ENCOURAGED
--- NOTE | 2024-11-07 06:12 | NUR ---
PT INTENTIONALLY DEFECATING SELF. PT STATES THEY HAVE SENSATION ON WHEN THEY NEEDED TO GO BUT DIDN'T CALL FOR HELP. PT EDUCATED FORMING PRESS OPERATOR VALENTE USE AND RISK OF SKIN BREAKDOWN.
[2024-11-07] MEDS ORDERED: CeFAZolin Sodium 2,000 MG in NS 100 ML IV SCH (16:00)
--- NOTE | 2024-11-07 16:15 | NUR ---
WOUND CARE DRESSING TO RIGHT STUMP REMOVED. WOUND CLEANSED. XEROFORM PLACED WITH ABD PAD AND THEN KEVIN WRAP. STUMP SOCK PLACED OVER KEVIN WRAP ORDERED. PT TOLERATED DRESSING CHANGE WELL.
--- NOTE | 2024-11-07 17:29 | NUR ---
SHIFT SUMMARY PT REMAINS ALERT AND ORIENTED. BP STABLE. O2 SATS REMAINED ABOVE 90% ON 1L NC. ATTEMPTED TO TITRATE TO ROOM AIR AND SATS DROPPED TO 86%. HR REMAINS NSR. PT CONTINUES TO COMPLAIN OF PAIN AT TIMES TO RIGHT STUMP. STUMP ELEVATED ON PILLOWS ALL SHIFT. PT VOIDING WITH PUREWICK OR WITH BEDPAN AT TIMES. PT HAD MULTIPLE BM THIS SHIFT. PT REPOSITIONED Q2H. WILL REPORT OFF TO ONCOMING RN
--- NOTE | 2024-11-07 18:55 | NUR ---
UPDATE CALLED IN TO PT ROOM AND PT STATES SHE IS SHORT OF BREATH. RT CALLED AND BREATHING TREATMENT PROVIDED. PT STILL COMPLAINS OF SHORTNESS OF BREATH. PT TACHYPNEIC AND TACHYCARDIC IN 120'S. BP ELEVATED. PT IS DIAPHORETIC. EMISSIONS TESTING TECHNICIAN RESIDENT CALLED AND ONE TIME DOSE OF LASIX ORDERED. 02 INCREASED TO 4L NC TO KEEP O2 SATS >90%. BEDSIDE REPORT GIVEN TO MATTY MIRANDA TO ASSUME CARE. CHARGE NURSE AT BEDSIDE WELL
[2024-11-07] MEDS ORDERED: Furosemide 10 MG/ML 4ML Vial ONE (19:06)
[2024-11-07] MEDS ORDERED: Furosemide 10 MG/ML 4ML Vial IV ONE (19:10)
[2024-11-07] MEDS ORDERED: LORazepam 2 MG/ML 1ML Injection IV ONE (19:50)
--- NOTE | 2024-11-07 19:58 | NUR ---
ASSUMPTION OF CARE ASSUMMED CARE OF PT AT 1900,BEDSIDE REPORT COMPLETED WITH PREVIOUS NURSE.PT'S BP ELEVATED,SBP 200'S AND DBP 100'S.PT'S TACHYPNEIC AT 24BPM.ONE TIME ORDER OF LASIX ADMINISTERED BY DAYSHIFT NURSE.CRACKLES HEARD THROUGHOUT.CHARGE NURSE CONTACTED THE DOCTOR,ATIVAN ORDERED.PT ANXIOUS,STATES THAT SHE IS AFRAID THAT SHE WILL NOT MAKE IT BECAUSE HER MOM FROM LUNG/BREATHING ISSUES.REMAINED AT BEDSIDE WITH PT,CUEING HER ON HOW TO BREATH SLOWER,ON 4L OXYGEN VIA NASAL CANNULA.RT CONTACTED,PT PLACED ON A BIPAP.PT REPORTS FEELING BETTER ON THE BIPAP.WILL CONTINUE TO MONITOR.
--- NOTE | 2024-11-07 23:23 | NUR ---
THIS NURSE WENT TO PT'S ROOM TO CHECK ON HER,PT REQUESTS TO HAVE THE BP CUFF OFF.EXPLAINED TO PT WHY THE BP WAS BEING CHECKED FREQUENTLY.INFORMED PT THAT HER BP HAS IMPROVED AND THE BP WILL BE CHECKED AT MIDNIGHT.PT ALSO ASKS TO BE SWITCHED FROM THE BIPAP TO NC .SWITCHED PT TO 4L VIA NC.NO WORK OF BREATHING NOTED AT THIS TIME.PT STATES THAT SHE IS FEELING BETTER.PT ASKS TO BE HELPED OUT OF BED TO USE THE BATHROOM.INFORMED THAT SHE IS NOT ABLE TO GET TO THE BATHROOM AND THAT SHE HAS A PUREWICK.PT INSISTS,GETTING ANGRY AT THIS NURSE.OFFERED A BEDPAN BUT PT INITIALLY REFUSED.CHARGE NURSE CALLED INTO THE ROOM BECAUSE PT WAS GETTING AGITATED.THE CHARGE NURSE TALKED TO PT AND SHE AGREED TO USE THE BEDPAN.PLACED ON BEDPAN,PT URINATED BUT DID NOT HAVE A BOWEL MOVEMENT.PERICARE COMPLETED,PT'S EXCORIATED OK AREA CLEANED,BARRIER CREAM APPLIED.RIGHT STUMP ELEVATED ON A PILLOW.
[2024-11-08 00:23] VITALS: BP 153/92
[2024-11-08 03:58] VITALS: BP 152/79
[2024-11-08 04:03] LABS: Hematocrit 24.6 % (33.0-51.0); Hemoglobin 7.7 g/dL (11.5-16.0); Mean Corpuscular HGB 27.4 pg (26.0-34.0); Mean Corpuscular HGB Conc 31.3 g/dL (31.5-36.5); Mean Corpuscular Volume 88 fL (80-100); Mean Platelet Volume 9.7 fL (9.1-12.4); NRBC ABSOLUTE 0.02 K/mm3 (0.00-0.02); NRBC Auto 0.1 /100 WBC (0.0-0.2); Platelet Count 404 K/mm3 (150-400); RDW Standard Deviation 47.9 fL (35.1-46.3); Red Blood Cell Count 2.81 M/mm3 (3.80-5.20); White Blood Cell Count 27.29 K/mm3 (4.00-11.30)
[2024-11-08 04:20] LABS: Albumin, Blood 1.7 g/dL (3.4-5.0); Albumin/Globulin Ratio 0.3 (0.8-1.8); Bilirubin, Total 0.2 mg/dL (0.1-1.0); Calcium, Blood 7.3 mg/dL (8.5-10.1); Creatinine, Blood 2.29 mg/dL (0.40-1.00); Globulin, Blood 5.3 g/dL (2.2-4.0); Potassium, Blood 3.9 mmol/L (3.5-5.5)
[2024-11-08 05:34] LABS: BAND PERCENT MAN 4 % (0-8); BASOPHILS PERCENT MAN 0 % (0-2); EOSINOPHILS PERCENT MAN 0 % (0-6); LYMPHOCYTES ABSOLUTE MAN 1.63 K/mm3 (0.84-5.20); LYMPHOCYTES PERCENT MAN 6 % (21-46); METAMYELOCYTE ABSOLUTE MAN 0.81 K/mm3 (0.00-0.00); METAMYELOCYTE PERCENT MAN 3 % (0-0); MONOCYTES ABSOLUTE MAN 1.63 K/mm3 (0.16-1.47); MONOCYTES PERCENT MAN 6 % (4-13); MYELOCYTE ABSOLUTE MAN 0.54 K/mm3 (0.00-0.00); MYELOCYTE PERCENT MAN 2 % (0-0); NEUTROPHILS ABSOLUTE MAN 22.65 K/mm3 (1.96-9.15); SEG NEUTROPHILS PERCENT MAN 79 % (41-73); TOTAL CELLS COUNTED 100
--- NOTE | 2024-11-08 06:45 | NUR ---
SHIFT SUMMARY PT HAS BEEN SLEEPING ON/OFF THROUGHOUT THE NIGHT,IRRITABLE AND WANTING TO GET OUT OF BED TO USE THE BATHROOM.GOT AGITATED WHEN THIS NURSE REMINDED HER THAT SHE IS NWB DUE TO RBKA.USED THE CPAP ON/OFF SWITCHING BETWEEN THE CPAP AND 4L NC.PT AWAKE AND ALERT THIS MORNING,GIVEN PRN DILAUDID 1MG IV FOR PAIN PER PT'S REQUEST.PT APOLOGIZED FOR BEING RUDE TO THIS NURSE,STATES THAT SHE HAD A BAD DREAM.PT DENIES FURTHER NEEDS AT THIS TIME.CALL LIGHT AND PT'S ITEMS WITHIN REACH.WILL CONTINUE TO MONITOR.
[2024-11-08 07:22] VITALS: BP 139/81
[2024-11-08] MEDS ORDERED: Insulin Human Lispro 100 Units/ML 3ML Syringe SC SCH (12:30)
--- NOTE | 2024-11-08 13:27 | NUR ---
UPDATE STATUS CHANGED TO SURGICAL. REPORT GIVEN TO TEOFILO MIRANDA TO ASSUME CARE. PT TAKEN VIA BED WITH ALL BELONGINGS.
[2024-11-08 13:28] VITALS: BP 141/80
--- NOTE | 2024-11-08 13:45 | NUR ---
TRANSFER TO SURGICAL UNIT AFTER RECEIVING REPORT FROM DIP PAINTER, DAMIAN, PATIENT TRANSFERRED TO SURGICAL UNIT VIA BED AT APPROX 1325. PATIENT ALERT AND ORIENTED X4. COMMUNICATES NEEDS EFFECTIVELY. LETHARGIC FOLLOWING IV DILAUDID ADMINISTRATION PRIOR TO TRANSFER - EASILY AROUSABLE WITH VERBAL STIMULI. PAIN IMPROVED. VSS. CURRENTLY ON 2L VIA NC, SATs >90%. LUNG SOUNDS DIM BASES. CONTINUOUS PULSE OX AT BEDSIDE. TELEMETRY SHOWING SINUS 94 PER SALES RESEARCH ANALYST. SBP 140s. DENIES CHEST PAIN, PRESSURE. SWITCHBOARD MANAGER AT BEDSIDE FOR ECHOCARDIOGRAM. DRESSING TO R STUMP CHANGED PER MD ORDER - INCISION SITE WITH SUTURES WNL. HEALING WELL. PUREWICK AND ATTENDS IN PLACE FOR INCONTINENCE MANAGEMENT. CALL LIGHT IN REACH. FAMILY AT BEDSIDE.
[2024-11-08 15:03] VITALS: BP 158/78
--- NOTE | 2024-11-08 17:52 | NUR ---
SHIFT SUMMARY NO ACUTE CHANGES SINCE ARRIVAL TO UNIT. REMAINS ALERT AND ORIENTED X4. COMMUNICATING NEEDS EFFECTIVELY. VSS. SBP 140s-150s. MAP >65. DENIES CHEST PAIN, PRESSURE. NO EVENTS ON TELEMETRY REPORTED BY SECTION CREWS ACTIVITIES CLERK. ECHOCARDIOGRAM COMPLETED. TITRATED TO 1L VIA NC, SATs >90%. MILD SHORTNESS OF BREATH AT REST. WORKED WITH PHYSICAL THERAPY THIS AFTERNOON - DID NOT AMBULATE OUT OF BED. PUREWICK AND ATTENDS IN PLACE - CHANGING PRN TO KEEP C/D/I. X1 INCONTINENT VOID. X1 INCONTINENT BM. REDNESS, EXCORIATION TO OK AREA. DRESSING TO R STUMP REMAINS C/D/I. MANAGING PAIN PER EMAR. MULTIPLE VISITORS THROUGHOUT AFTERNOON. CALL LIGHT IN REACH. WILL CONTINUE TO MONITOR AND REPORT TO ONCOMING RN.
[2024-11-08 19:29] VITALS: BP 149/80
[2024-11-08] MEDS ORDERED: Insulin Glargine-Yfgn 100 Unit/mL 3 ML SYR SC SCH (21:00)
--- NOTE | 2024-11-09 04:53 | NUR ---
SHIFT SUMMARY POD 6 R BKA; POD 4 R BKA I&D. NO ACUTE CHANGES OVERNIGHT. VSS, SAT >90% ON RA, TELE - NSR @ 92, CONT BIOX IN USE. TOLERATING ORALS. INCONT, ATTENDS & PUREWICK IN USE. INCONT BM OVERNIGHT. IV ABX PER EMAR. PT ABLE TO MIN ASSIST c TURNS; 2 PERSON ASSIST. R STUMP C/D/I, ELEVATED ON PILLOWS. PT REPORTS PAIN TOLERABLE, MEDICATED PER EMAR. CALL LIGHT IN REACH, BED IN LOWEST POSITION, WILL REPORT TO DAY RN.
[2024-11-09 04:54] VITALS: BP 151/85
[2024-11-09 04:55] VITALS: BP 151/85
[2024-11-09 05:30] LABS: Hematocrit 26.2 % (33.0-51.0); Hemoglobin 7.8 g/dL (11.5-16.0); Mean Corpuscular HGB 27.3 pg (26.0-34.0); Mean Corpuscular HGB Conc 29.8 g/dL (31.5-36.5); Mean Corpuscular Volume 92 fL (80-100); Mean Platelet Volume 9.4 fL (9.1-12.4); NRBC ABSOLUTE 0.03 K/mm3 (0.00-0.02); NRBC Auto 0.1 /100 WBC (0.0-0.2); Platelet Count 393 K/mm3 (150-400); RDW Coefficient Variation 15.4 % (11.7-14.2); RDW Standard Deviation 51.4 fL (35.1-46.3); Red Blood Cell Count 2.86 M/mm3 (3.80-5.20); White Blood Cell Count 22.32 K/mm3 (4.00-11.30)
[2024-11-09 06:00] LABS: Albumin, Blood 1.6 g/dL (3.4-5.0); Albumin/Globulin Ratio 0.3 (0.8-1.8); Bilirubin, Total 0.2 mg/dL (0.1-1.0); Bun/Creatinine Ratio 18.7 (12.0-20.0); Calcium, Blood 7.5 mg/dL (8.5-10.1); Creatinine, Blood 1.93 mg/dL (0.40-1.00); Globulin, Blood 5.5 g/dL (2.2-4.0); Potassium, Blood 3.9 mmol/L (3.5-5.5); Total Protein, Blood 7.1 g/dL (6.4-8.2)
[2024-11-09 06:36] LABS: BAND PERCENT MAN 7 % (0-8); BASOPHILS PERCENT MAN 0 % (0-2); EOSINOPHILS ABSOLUTE MAN 0.89 K/mm3 (0.00-0.68); EOSINOPHILS PERCENT MAN 4 % (0-6); LYMPHOCYTES ABSOLUTE MAN 3.34 K/mm3 (0.84-5.20); LYMPHOCYTES PERCENT MAN 15 % (21-46); METAMYELOCYTE ABSOLUTE MAN 0.22 K/mm3 (0.00-0.00); METAMYELOCYTE PERCENT MAN 1 % (0-0); MONOCYTES ABSOLUTE MAN 0.66 K/mm3 (0.16-1.47); MONOCYTES PERCENT MAN 3 % (4-13); MYELOCYTE ABSOLUTE MAN 0.44 K/mm3 (0.00-0.00); MYELOCYTE PERCENT MAN 2 % (0-0); NEUTROPHILS ABSOLUTE MAN 16.74 K/mm3 (1.96-9.15); SEG NEUTROPHILS PERCENT MAN 68 % (41-73); TOTAL CELLS COUNTED 100
[2024-11-09 07:06] VITALS: BP 171/88
[2024-11-09] MEDS ORDERED: Insulin Human Lispro 100 Units/ML 3ML Syringe SC SCH ×2 (07:30→11:30)
[2024-11-09] MEDS ORDERED: Furosemide 10 MG/ML 4ML Vial IV ONE (10:15)
--- NOTE | 2024-11-09 11:18 | NUR ---
AT APROX 1005 PT C/O INCREASED SOB. THIS RN TO ROOM TO ASSESS, PT HAS AUDIBLE WHEEZES UPON ENTERING ROOM. CRACKLES IN BILAT BASES, RR 22, O2 SAT 87% SUSTAINING. PT PLACED ON 2L O2 NC AND MD NOTIFIED. NEW ORDER FOR 40MG LASIX IVP GIVEN AT 1034. RT CALLED TO ASSESS FOR BREATHING TX. CPAP PLACED ON PT AT APROX 1036. PT ALSO GIVEN FLUTTER SHE WAS UNABLE TO DO IS EFFECTIVLY, PRIMARY RN TO ROOM AT 1056 AND TOOK OVER CARE AT THAT TIME. PT APPEARS MORE COMFORTABLE AT THIS TIME.
--- NOTE | 2024-11-09 13:45 | NUR ---
[place] [facility] [place]ED TO TRANSFER THE PATIENT FROM THE RECLINER CHAIR [place] [facility] APPLIED GB AND POSITIONED FWW IN FRONT OF HER, THIS RN STOOD IN FRONT OF HER JUST OFF TO HER LEFT SIDE ASSISTING HER UP, ONCE SHE WAS STANDING ANOTHER RN ATTEMPTED TO PULL THE CHAIR OUT OF THE WAY TO PLACE THE BSC BEHIND HER, RECLINER WAS NOT ABLE TO MOVE DESPITE WHEEL LOCKS BEING DISENGAGED, BSC BARELY ABLE TO BE PLACED BEHIND HER BUT BY THAT TIME SHE HAD STARTED SLUMPING DOWN SHE WAS LOSING STRENGTH IN HER ARMS, ATTMPTED TO GET HER BOTTOM UP ONTO THE BSC BUT SHE DID NOT HAVE ENOUGH STRENGTH LEFT AT THAT POINT TO DO SO, ASSISTED HER DOWN TO THE FLOOR SAFELY AND CALLED A 3RD RN IN TO ASSIST GETTING HER BACK TO BED AND ON A BED KAMARA. SLID A LIFT SHEET UNDER HER BOTTOM AND USING CEILING LIFT WAS ABLE TO LIFT HER UP TO BED AND GOT HER ON BEDPAN. DISCUSSED SITUATION WITH HER REGARDING ACTIVITY AND CURRENT LIMITATIONS. DESPITE THIS TRANSFER NOT GOING PLANNED SHE IS STILL MOTIVATED TO CONTINUE WORKING WITH THERAPY AND NURSING STAFF TO REBUILD HER STRENGTH.
[2024-11-09 15:05] VITALS: BP 170/93
[2024-11-09] MEDS ORDERED: Heparin Sodium 5000 Units/ML 1ML MDV SC SCH (16:00)
--- NOTE | 2024-11-09 16:04 | NUR ---
PT CALLED TO SPEAK WITH RN. THIS RN TO ROOM, PT ASKED IF THERAPY WOULD BE AVAILABLE TO SPEAK WITH HER REGARDING EXERCISES TO STRENGTHEN HER LLE. THIS RN EDUCATED ON THE IMPORTANCE OF LEG LIFTS, ANKLE PUMPS, AND BENDING HER KNEE TO IMPROVE STRENGHTH IN LLE. PT RECEPTIVE AND DEMONSTRATED EXERCISES. PT WAS A TWO MAX ASSIST TO CHAIR THIS AFTERNOON, PT WAS FEARFUL T/O TX BUT TOLERATED WELL. OVERHEAD LIFT BACK TO BED.
--- NOTE | 2024-11-09 18:20 | NUR ---
"Spiritual Care | Nurse Referral Pt. is awake in bed. Pt. displays a measure of caution when she welcomes my visit. Facilitated a lenghty life review. Pt. verbalizes her concerns about her weakness and health, and made inquiries about the purpose (and differences between) Occupational and Physical Therapy. Listened with empathy and a calming presence. Tried to normalize the Pt. experience and answer some of her quesitons. As the visit continued Pt. displayed evidence of increased trust. Considered matters of ruth and belief. Prayed with Pt. Pt. verbalized gratitude for the spiritual care and time spent. Pt. also welcomed this attendant arcade to return."
[2024-11-09 19:17] VITALS: BP 157/82
--- NOTE | 2024-11-09 20:07 | NUR ---
SHIFT SUMMARY POD6 R BKA, A/OX4, VSS, TOLERATING DIET, WORKING WITH THERAPY AND NURSING STAFF, WITH 2 MAX ASSIST SHE WAS ABLE TO GET UP TO THE CHAIR BUT THEN NEEDED THE LIFT TO GET BACK TO BED. ONE TIME LASIX GIVEN THIS AM WHICH HELPED IMPROVE HER BREATHING AND O2 SATS. SPIRITUAL CARE REFERAL PLACED. BEDSIDE SHIFT REPORT DONE WITH NOC RUTH KULKARNI. CALL LIGHT IN REACH.
[2024-11-09] MEDS ORDERED: Atorvastatin 10 MG Tab PO SCH (21:00)
--- NOTE | 2024-11-10 04:47 | NUR ---
SHIFT SUMMARY POD 7 R BKA; POD 5 R BKA I&D. NO ACUTE CHANGES OVERNIGHT. VSS, SAT >90% c CPAP USE WHILE ASLEEP, CONT BIOX IN USE, TELE - NSR @ 80. TOLERAING ORALS. INCONT, ATTENDS IN USE. IV ABX PER EMAR. PT ABLE TO ASSIST c TURNS; 1 PERSON ASSIST. R STUMP C/D/I, ELEVATED ON PILLOWS. PT REPORTS PAIN TOLERABLE, MEDICATED PER EMAR. CALL LIGHT IN REACH, BED IN LOWEST POSITION, WILL REPORT TO DAY RN.
[2024-11-10 05:14] LABS: BASOPHILS ABSOLUTE AUTO 0.05 K/mm3 (0.00-0.23); BASOPHILS PERCENT AUTO 0 % (0-2); EOSINOPHILS ABSOLUTE AUTO 0.21 K/mm3 (0.00-0.68); EOSINOPHILS PERCENT AUTO 1 % (0-6); Hemoglobin 7.3 g/dL (11.5-16.0); IMMATURE GRAN ABSOLUTE AUTO 1.34 K/mm3 (0.00-0.10); IMMATURE GRAN PERCENT AUTO 6 % (0-1); LYMPHOCYTES ABSOLUTE AUTO 2.73 K/mm3 (0.84-5.20); LYMPHOCYTES PERCENT AUTO 13 % (21-46); MONOCYTES ABSOLUTE AUTO 2.02 K/mm3 (0.16-1.47); MONOCYTES PERCENT AUTO 9 % (4-13); Mean Corpuscular HGB 27.1 pg (26.0-34.0); Mean Corpuscular HGB Conc 31.7 g/dL (31.5-36.5); Mean Platelet Volume 9.5 fL (9.1-12.4); NEUTROPHILS ABSOLUTE AUTO 15.07 K/mm3 (1.96-9.15); NEUTROPHILS PERCENT AUTO 70 % (41-73); Platelet Count 423 K/mm3 (150-400); RDW Coefficient Variation 15.5 % (11.7-14.2); RDW Standard Deviation 47.8 fL (35.1-46.3); Red Blood Cell Count 2.69 M/mm3 (3.80-5.20); White Blood Cell Count 21.42 K/mm3 (4.00-11.30)
[2024-11-10 05:25] LABS: Mean Corpuscular Volume 86 fL (80-100)
[2024-11-10 05:40] LABS: Albumin, Blood 1.7 g/dL (3.4-5.0); Albumin/Globulin Ratio 0.3 (0.8-1.8); Bilirubin, Total 0.2 mg/dL (0.1-1.0); Bun/Creatinine Ratio 21.6 (12.0-20.0); Calcium, Blood 8.1 mg/dL (8.5-10.1); Creatinine, Blood 1.76 mg/dL (0.40-1.00); Globulin, Blood 5.6 g/dL (2.2-4.0); Potassium, Blood 3.4 mmol/L (3.5-5.5); Total Protein, Blood 7.3 g/dL (6.4-8.2)
[2024-11-10 05:48] VITALS: BP 177/90
[2024-11-10 07:46] VITALS: BP 148/84
[2024-11-10 07:47] VITALS: BP 148/84
[2024-11-10] MEDS ORDERED: Potassium Chloride 20 MEQ TabCR PO ONE (09:00)
[2024-11-10] MEDS ORDERED: Furosemide 10 MG/ML 4ML Vial IV ONE (09:00)
--- NOTE | 2024-11-10 10:33 | NUR ---
"Spiritual Care Consult | Ordered by Dr. Cyrus MEHTA Pt. is awake and welcomed my visit. It is this reservationist's belief that with this visit the Pt. has been seen twice by y IA since the consult was ordered. 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 The Pt. verbalized that she had a restful sleep. Listened with empahty and a calming prsence. Though we had done some grief counselling the night before that was not the focus of this visit. Prayed with the Pt. pt. verbalized gratitude for the spiritual care visit and welcomed this reservationist to return."
[2024-11-10 13:50] VITALS: BP 149/82
--- NOTE | 2024-11-10 17:28 | NUR ---
SUMMARY NO ACUTE CHANGES T/O SHIFT. PT REPORTED FELT SOB THIS AM. REC'D IV LASIX ORDERED. VOIDED FREQUENTLY DURING SHIFT. PT USED CPAP T/O SHIFT. MEDICATED THIS AFTERNOON FOR PAIN. PT REPORTS RELIEF WITH PAIN MEDS. CALL LIGHT IN REACH.
[2024-11-10 19:33] VITALS: BP 149/85
--- NOTE | 2024-11-11 04:33 | NUR ---
SHIFT SUMMARY DONNIE WAS DROWSY BUT FULLY ORIENTED ON ASSESMENT. PT STILL REPORTING SOB, AND USING CPAP. O2 SATS 95%. TELE ORDERS PLACED. STUMB DRESSING/SOCK C/D/I. NO ACUTE EVENTS THIS SHIFT. NO NOTED CHANGES TO PT CONDITION.
[2024-11-11 05:46] VITALS: BP 145/82
[2024-11-11 06:46] LABS: BASOPHILS ABSOLUTE AUTO 0.06 K/mm3 (0.00-0.23); BASOPHILS PERCENT AUTO 0 % (0-2); EOSINOPHILS ABSOLUTE AUTO 0.25 K/mm3 (0.00-0.68); EOSINOPHILS PERCENT AUTO 1 % (0-6); Hematocrit 24.5 % (33.0-51.0); Hemoglobin 7.6 g/dL (11.5-16.0); IMMATURE GRAN ABSOLUTE AUTO 0.87 K/mm3 (0.00-0.10); IMMATURE GRAN PERCENT AUTO 4 % (0-1); LYMPHOCYTES ABSOLUTE AUTO 2.94 K/mm3 (0.84-5.20); LYMPHOCYTES PERCENT AUTO 15 % (21-46); MONOCYTES PERCENT AUTO 9 % (4-13); Mean Corpuscular HGB 27.2 pg (26.0-34.0); Mean Corpuscular Volume 88 fL (80-100); Mean Platelet Volume 9.3 fL (9.1-12.4); NEUTROPHILS ABSOLUTE AUTO 13.98 K/mm3 (1.96-9.15); NEUTROPHILS PERCENT AUTO 70 % (41-73); Platelet Count 394 K/mm3 (150-400); RDW Coefficient Variation 15.8 % (11.7-14.2); RDW Standard Deviation 50.1 fL (35.1-46.3); Red Blood Cell Count 2.79 M/mm3 (3.80-5.20)
[2024-11-11] MEDS ORDERED: Potassium Chloride 20 MEQ TabCR PO SCH (07:00)
[2024-11-11 07:05] VITALS: BP 134/71
[2024-11-11 07:22] LABS: Albumin, Blood 1.7 g/dL (3.4-5.0); Albumin/Globulin Ratio 0.3 (0.8-1.8); Bilirubin, Total 0.4 mg/dL (0.1-1.0); Bun/Creatinine Ratio 22.8 (12.0-20.0); Calcium, Blood 8.4 mg/dL (8.5-10.1); Creatinine, Blood 1.67 mg/dL (0.40-1.00); Globulin, Blood 5.8 g/dL (2.2-4.0); Potassium, Blood 3.8 mmol/L (3.5-5.5); Total Protein, Blood 7.5 g/dL (6.4-8.2)
[2024-11-11 07:52] LABS: IMMATURE RETIC FRACTION 33.1 % (2.3-16.0); RETIC HGB EQUIVALENT 25.3 pg (28.20-36.60); RETICULOCYTE ABSOLUTE 0.0839 M/mm3 (0.0200-0.1100); RETICULOCYTE COUNT PERCENT 3.03 % (0.50-2.50)
[2024-11-11] MEDS ORDERED: Furosemide 10 MG/ML 4ML Vial IV ONE (08:15)
[2024-11-11 08:26] LABS: Percent Saturation 10.6 % (15.0-50.0)
[2024-11-11] MEDS ORDERED: Empagliflozin 10 MG TAB PO SCH (09:00)
[2024-11-11] MEDS ORDERED: Losartan Potassium 50 MG Tab PO SCH (09:00)
[2024-11-11] MEDS ORDERED: LORazepam 2 MG/ML 1ML Injection IV PRN (10:10)
[2024-11-11] MEDS ORDERED: OxyCODONE HCL 5 MG TAB PO PRN (10:10)
[2024-11-11 17:43] VITALS: BP 141/81
--- NOTE | 2024-11-11 18:04 | NUR ---
SUMMARY PT WAS VERY SOB THIS AM. REC'/D LASIX PER ORDERS. RR WAS 28-30. NOTIFIED DR AND ORDERS OBTAINED FOR CHEST XR. PT WAS VERY ANXIOUS DURING THAT TIME. ORDERS OBTAINED FOR ATIVAN PRN BUT PT RELAXED AND ATIVAN HAS NOT BEEN GIVEN. PT HAD EXP WHEEZE, RT NOTIFIED AND BREATHING TX ADMINISTERED. PT GETS SOB WITH ANY EXERTION. DID NOT FEEL SAFE HAVING PT GET UP WITH THERAPY THIS SHIFT. PT'S 02 SATS HAVE REMAINED IN 90S ON CPAP. PT REMOVES CPAP FOR BRIEF PERIODS OF TIME TO EAT BUT WAS WORN THROUGHOUT MOST OF DAY. RR 18 WITH AFTERNOON VSS. PT PLEASANT AND COOPERATIVE. DRESSING CHANGED TO RLE PER ORDERS. PT REPOSITIONED T/O SHIFT AND BARRIER CREAM APPLIED TO BUTTOCKS. CALL LIGHT IN REACH.
[2024-11-11 19:16] VITALS: BP 143/74
[2024-11-12 03:49] VITALS: BP 135/71
--- NOTE | 2024-11-12 04:34 | NUR ---
SHIFT SUMMARY DONNIE WAS ALERT AND FULLY ORIENTED ON ASSESMENT. PT STATES THAT NOTHING HAS CHANGED FOR HER SINCE PREVIOUS NOC SHIFT. PT STILL FEELING CONSTANTLY SOB, AND WEARING CPAP AT ALL TIMES. STUMP DRESSING C/D/I. PAIN WELL MANAGED AT THIS TIME. NO ACUTE EVENTS TONIGHT. NO NOTED CHANGES TO PT CONDITION. PT ENCOURAGED TO REPOSITION FREQUENTLY.
[2024-11-12 05:02] LABS: BASOPHILS ABSOLUTE AUTO 0.08 K/mm3 (0.00-0.23); BASOPHILS PERCENT AUTO 0 % (0-2); EOSINOPHILS ABSOLUTE AUTO 0.29 K/mm3 (0.00-0.68); EOSINOPHILS PERCENT AUTO 1 % (0-6); Hematocrit 23.8 % (33.0-51.0); Hemoglobin 7.4 g/dL (11.5-16.0); IMMATURE GRAN ABSOLUTE AUTO 0.73 K/mm3 (0.00-0.10); IMMATURE GRAN PERCENT AUTO 4 % (0-1); LYMPHOCYTES ABSOLUTE AUTO 3.56 K/mm3 (0.84-5.20); LYMPHOCYTES PERCENT AUTO 18 % (21-46); MONOCYTES ABSOLUTE AUTO 1.71 K/mm3 (0.16-1.47); MONOCYTES PERCENT AUTO 8 % (4-13); Mean Corpuscular HGB 27.1 pg (26.0-34.0); Mean Corpuscular HGB Conc 31.1 g/dL (31.5-36.5); Mean Corpuscular Volume 87 fL (80-100); Mean Platelet Volume 9.5 fL (9.1-12.4); NEUTROPHILS PERCENT AUTO 69 % (41-73); Platelet Count 425 K/mm3 (150-400); RDW Coefficient Variation 15.9 % (11.7-14.2); RDW Standard Deviation 50.2 fL (35.1-46.3); Red Blood Cell Count 2.73 M/mm3 (3.80-5.20); White Blood Cell Count 20.27 K/mm3 (4.00-11.30)
[2024-11-12 05:27] LABS: Alanine Aminotransfer (ALT/SGP <6 U/L (12-78); Albumin, Blood 1.8 g/dL (3.4-5.0); Albumin/Globulin Ratio 0.3 (0.8-1.8); Alk Phos 129 U/L (50-136); Anion Gap 9 mmol/L (3-11); Aspartate Aminotrans (AST/SGOT 45 U/L (12-37); Bilirubin, Total 0.2 mg/dL (0.1-1.0); Blood Urea Nitrogen 44 mg/dL (8-24); Bun/Creatinine Ratio 25.4 (12.0-20.0); CO2, Blood 25 mmol/L (21-32); Chloride, Blood 109 mmol/L (98-108); Creatinine, Blood 1.73 mg/dL (0.40-1.00); Glomerular Filtration Rate 33 (60-); Glucose, Blood 186 mg/dL (70-99); Potassium, Blood 3.8 mmol/L (3.5-5.5); Sodium, Blood 139 mmol/L (136-145); Total Protein, Blood 7.8 g/dL (6.4-8.2)
[2024-11-12 07:08] VITALS: BP 137/76
[2024-11-12] MEDS ORDERED: Furosemide 10 MG/ML 4ML Vial IV SCH ×2 (09:00)
[2024-11-12] MEDS ORDERED: HYDROmorphone HCl/Pf 1MG SYR IV PRN (12:45)
[2024-11-12 14:14] LABS: Bun/Creatinine Ratio 26.3 (12.0-20.0); Calcium, Blood 8.9 mg/dL (8.5-10.1); Creatinine, Blood 1.79 mg/dL (0.40-1.00); Potassium, Blood 3.8 mmol/L (3.5-5.5)
[2024-11-12 14:35] VITALS: BP 161/74
--- NOTE | 2024-11-12 17:29 | NUR ---
Spiritual Care Attempted. Pt. is somnolent and is on a bipap. Will remain available to the Pt.
[2024-11-12 17:46] LABS: Bun/Creatinine Ratio 25.8 (12.0-20.0); Calcium, Blood 8.9 mg/dL (8.5-10.1); Creatinine, Blood 1.86 mg/dL (0.40-1.00)
[2024-11-12 19:18] VITALS: BP 140/83
--- NOTE | 2024-11-12 19:55 | NUR ---
SUMMARY: PT IS S/P R BKA. A/O, VSS, PT EMOTIONAL AT TIMES TODAY. SURGICAL SITE WNL. PT AGREED TO TRANSFER TO CHAIR WITH THERAPY, LIFT USED. PT REPORTED INCREASED PAIN AND MD NOTIFIED, DILAUDID ORDERD PRN. PT REPORTED THAT DILAUDID HELPED THE MOST WITH PAIN OVER REPOSTIONING OR ICE PACK. PT CONTINUES TO USE CPAP PRN, LUNGS ARE CLEAR AND DIM UPON ASCULTATION. CONT BIOX IN PLACE. NO ACUTE SAFETY CONCERNS. PT USES CALL LIGHT TO MAKE NEEDS KNOWN.
[2024-11-12 21:25] LABS: Bun/Creatinine Ratio 26.6 (12.0-20.0); Creatinine, Blood 1.88 mg/dL (0.40-1.00); Potassium, Blood 3.8 mmol/L (3.5-5.5)
[2024-11-13 04:41] VITALS: BP 133/71
--- NOTE | 2024-11-13 05:41 | NUR ---
SHIFT SUMMARY POD 10-R BKA, POD 6-I&D. REPORTED 4/10 PAIN IN R STUMP @HS & MEDICATED W/TYLENOL, PT DENIED ANY FURTHER DISCOMFORT OR PAIN THIS AM. DENIES N/T. ABLE TO LIFT STUMP OFF BED, STUMP SOCK IN PLACE & C/D/I. DENIES N/V. VSS. TELE NSR HR 88. SPO2 >90% ON 2L BLEED INTO CPAP. PT W/GINNY & ATTENDS, APPROX 1900ML CLEAR LIGHT YELLOW URINE OUT. CALL LIGHT IN REACH.
[2024-11-13 06:32] LABS: BASOPHILS PERCENT AUTO 1 % (0-2); EOSINOPHILS ABSOLUTE AUTO 0.25 K/mm3 (0.00-0.68); EOSINOPHILS PERCENT AUTO 2 % (0-6); Hematocrit 24.5 % (33.0-51.0); Hemoglobin 7.4 g/dL (11.5-16.0); IMMATURE GRAN ABSOLUTE AUTO 0.29 K/mm3 (0.00-0.10); IMMATURE GRAN PERCENT AUTO 2 % (0-1); LYMPHOCYTES ABSOLUTE AUTO 2.69 K/mm3 (0.84-5.20); LYMPHOCYTES PERCENT AUTO 17 % (21-46); MONOCYTES ABSOLUTE AUTO 1.42 K/mm3 (0.16-1.47); MONOCYTES PERCENT AUTO 9 % (4-13); Mean Corpuscular HGB 26.9 pg (26.0-34.0); Mean Corpuscular HGB Conc 30.2 g/dL (31.5-36.5); Mean Corpuscular Volume 89 fL (80-100); Mean Platelet Volume 9.9 fL (9.1-12.4); NEUTROPHILS PERCENT AUTO 71 % (41-73); Platelet Count 407 K/mm3 (150-400); RDW Coefficient Variation 15.9 % (11.7-14.2); RDW Standard Deviation 51.3 fL (35.1-46.3); Red Blood Cell Count 2.75 M/mm3 (3.80-5.20); White Blood Cell Count 16.25 K/mm3 (4.00-11.30)
[2024-11-13 07:09] LABS: Alanine Aminotransfer (ALT/SGP <6 U/L (12-78); Albumin, Blood 1.8 g/dL (3.4-5.0); Albumin/Globulin Ratio 0.3 (0.8-1.8); Alk Phos 126 U/L (50-136); Anion Gap 11 mmol/L (3-11); Aspartate Aminotrans (AST/SGOT 46 U/L (12-37); Bilirubin, Total 0.2 mg/dL (0.1-1.0); Blood Urea Nitrogen 52 mg/dL (8-24); Bun/Creatinine Ratio 27.7 (12.0-20.0); CO2, Blood 28 mmol/L (21-32); Calcium, Blood 8.8 mg/dL (8.5-10.1); Chloride, Blood 105 mmol/L (98-108); Creatinine, Blood 1.88 mg/dL (0.40-1.00); Globulin, Blood 5.9 g/dL (2.2-4.0); Glomerular Filtration Rate 30 (60-); Glucose, Blood 158 mg/dL (70-99); Potassium, Blood 3.8 mmol/L (3.5-5.5); Sodium, Blood 140 mmol/L (136-145); Total Protein, Blood 7.7 g/dL (6.4-8.2)
[2024-11-13 07:39] VITALS: BP 129/81
--- NOTE | 2024-11-13 08:11 | NUR ---
PT DECLINED BREAKFAST. CPAP REMOVED PER PT REQUEST, O2 SAT DECREASED TO 81% ON RA. PT PLACED ON 2L O2 VIA NC, O2 SAT INCREASED TO 93%. SPO2 SETTINGS ADJUSTED SO ALARM WILL SOUND AT 89%. PT ENCOOURAGED TO USE IS AND OR FLUTTER, VERBALIZED UNDERSTANDING. PRIMARY RN NOTIFIED.
--- NOTE | 2024-11-13 11:18 | NUR ---
DRESSING TO R STUMP CHANGED AT THIS TIME. PREMEDICATED FOR PAIN PRIOR TO PROCEDURE. PT PAINFUL DURING DRESSING CHANGE. SUTURES AND PIERO REMAIN INTACT. PT RESTING IN BED POST PROCEDURE, ATTEMPTING TO SLEEP.
[2024-11-13 14:12] VITALS: BP 128/72
--- NOTE | 2024-11-13 17:04 | NUR ---
SHIFT SUMMARY POD 10 RBKA, POD 8 I&D R STUMP PT REPORTS PAIN MANAGEABLE DURING SHIFT. PT DECLINES TO GET OOB DURING SHIFT BUT IS REPOSITIONING WELL IN BED. ENCOURAGED HER TO CONTINUE MOVING. PT VERBALIZES UNDERSTANDING. DRESSING TO R STUMP REMAINS CDI AFTER CHANGE THIS AM. PT USING CPAP DURING MOST OF SHIFT. PUREWICK IN PLACE. PT VOIDING WELL. TOLERATING DIET. NO NAUSEA.
[2024-11-13 19:41] VITALS: BP 131/71
--- NOTE | 2024-11-14 00:56 | NUR ---
REGARDING FLUIDS PT REQUESTING SOME WATER TO DRINK. PER DAY SHIFT RNJAMES, PT HAD 1000ML ON DAYS & THERE WAS STILL THE 500ML FLUID FOR NIGHT AVAILABLE. HOWEVER, THE I&O CHARTING SHOWS PT HAD A TOTAL OF 1440ML PO FLUIDS ON DAYS, THEREFORE RESULTING IN NO FLUIDS ALLOWED FOR GROUP ROOMS COORDINATOR. DISCUSSED W/SERVICE ASSOCIATERUTH [place] & IT WAS DECIDED 1 500ML CUP WOULD BE ALLOWED.
--- NOTE | 2024-11-14 04:37 | NUR ---
SHIFT SUMMARY POD11-R BKA, POD8-I&D OF R BKA. DRESSING CHANGED 11/13/24 DAY SHIFT, DRESSING C/D/I NO DRAINAGE NOTED. PT ABLE TO RAISE R BKA OFF BED, NO EDEMA TO R THIGH NOTED. VSS. TELE NSR HR 97. SPO2 >90% WHILE ON CPAP W/5L O2 BLEED IN, PT DOES DESAT WHEN SHE REMOVES CPAP HOWEVER RECOVERS WITHIN MIN. REPORTS 5/10 PAIN TO R BKA, MEDICATED W/OXYCODONE, TYLENOL & PT ABLE TO REST WELL. HAS VOIDED APPROX 1400ML LIGHT YELLOW URINE SO FAR THIS SHIFT. CALL LIGHT IN REACH.
[2024-11-14 05:12] VITALS: BP 133/69
[2024-11-14 07:27] VITALS: BP 126/71
[2024-11-14] MEDS ORDERED: Potassium Chloride 20 MEQ TabCR PO SCH (09:00)
--- NOTE | 2024-11-14 13:26 | NUR ---
DRESSING TO RIGHT LOWER LEG CHANGED THIS MORNING AT APPROX 1100. PT TOLERATED PROCEDURE WELL. CLEANSED AND DRESSED PER ORDERS.
[2024-11-14 15:09] VITALS: BP 130/66
[2024-11-14] MEDS ORDERED: OxyCODONE 7.5 mg/Acetam 325 mg TABLET PO PRN (16:00)
--- NOTE | 2024-11-14 17:19 | NUR ---
SHIFT SUMMARY POD 11 R BKA, AND POD 8 I&D. PAIN MANAGED PER EMAR DURING SHIFT. IMPROVING T/O SHIFT. UP TO CHAIR WITH SLING TODAY. PT TOLERATED WELL. HAS REMAINED ON NASAL CANULA SINCE LUNCH WITH SATS REMAINING IN THE MID 90'S ON 2L. DENIES SOB. REPORTS BREATHING IMPROVED. DRESSING TO R BKA CDI. CHANGED THIS MORNING. PT FOLLOWING FLUID RESTRICTION WELL. PLAN IS FOR PATIENT TO DISCHARGE TO SNF.
[2024-11-14 19:38] VITALS: BP 130/70
[2024-11-14] MEDS ORDERED: Pregabalin 50 MG Capsule PO SCH (21:00)
[2024-11-14] MEDS ORDERED: Insulin Glargine-Yfgn 100 Unit/mL 3 ML SYR SC SCH (21:00)
[2024-11-15] VITALS (66 sets, daily range): BP systolic 67–176; BP diastolic 36–112
[2024-11-15] MEDS ORDERED: Etomidate 2MG / ML 10ML Vial IV ONE (02:10)
[2024-11-15] MEDS ORDERED: Rocuronium Bromide 10 MG/ML 5ML Injection IV ONE (02:10)
--- NOTE | 2024-11-15 05:36 | NUR ---
SHIFT SUMMARY POD 11 R BKA; POD 9 I&D R LE. NO ACUTE CHANGES OVERNIGHT. VSS, PT SAT >90% ON 5-8L O2 BLEED IN c CPAP, CONT BIOX IN USE. PT DESAT c EXERTION. ENCOURAGED TO USE CPAP & NC TO MAINTAIN O2 SATURATION, TELE - NSR IN 80s. PUREWICK/ATTENDS IN USE. RLE STUMP SOCK C/D/I. PT REPORTS PAIN TOLERABLE, MEDICATED PER EMAR. 1 ASSIST c CARE; LIFT TO CHAIR. ANTICIPATED D/C TO SNF. CALL LIGHT IN REACH, BED IN LOWEST POSITION, WILL REPORT TO DAY RN.
[2024-11-15 05:49] LABS: BASOPHILS ABSOLUTE AUTO 0.03 K/mm3 (0.00-0.23); BASOPHILS PERCENT AUTO 0 % (0-2); EOSINOPHILS ABSOLUTE AUTO 0.16 K/mm3 (0.00-0.68); EOSINOPHILS PERCENT AUTO 1 % (0-6); Hematocrit 22.9 % (33.0-51.0); IMMATURE GRAN ABSOLUTE AUTO 0.11 K/mm3 (0.00-0.10); IMMATURE GRAN PERCENT AUTO 1 % (0-1); LYMPHOCYTES ABSOLUTE AUTO 2.14 K/mm3 (0.84-5.20); LYMPHOCYTES PERCENT AUTO 16 % (21-46); MONOCYTES ABSOLUTE AUTO 1.51 K/mm3 (0.16-1.47); MONOCYTES PERCENT AUTO 11 % (4-13); Mean Corpuscular HGB 26.7 pg (26.0-34.0); Mean Corpuscular HGB Conc 30.6 g/dL (31.5-36.5); Mean Corpuscular Volume 87 fL (80-100); Mean Platelet Volume 9.7 fL (9.1-12.4); NEUTROPHILS ABSOLUTE AUTO 9.82 K/mm3 (1.96-9.15); NEUTROPHILS PERCENT AUTO 71 % (41-73); Platelet Count 352 K/mm3 (150-400); RDW Coefficient Variation 15.7 % (11.7-14.2); Red Blood Cell Count 2.62 M/mm3 (3.80-5.20); White Blood Cell Count 13.77 K/mm3 (4.00-11.30)
[2024-11-15 06:17] LABS: Alanine Aminotransfer (ALT/SGP <6 U/L (12-78); Albumin, Blood 1.7 g/dL (3.4-5.0); Albumin/Globulin Ratio 0.3 (0.8-1.8); Alk Phos 141 U/L (50-136); Anion Gap 10 mmol/L (3-11); Aspartate Aminotrans (AST/SGOT 39 U/L (12-37); Bilirubin, Total 0.2 mg/dL (0.1-1.0); Blood Urea Nitrogen 63 mg/dL (8-24); Bun/Creatinine Ratio 28.8 (12.0-20.0); CO2, Blood 32 mmol/L (21-32); Calcium, Blood 8.4 mg/dL (8.5-10.1); Chloride, Blood 101 mmol/L (98-108); Creatinine, Blood 2.19 mg/dL (0.40-1.00); Globulin, Blood 6.1 g/dL (2.2-4.0); Glomerular Filtration Rate 25 (60-); Glucose, Blood 166 mg/dL (70-99); Potassium, Blood 3.7 mmol/L (3.5-5.5); Sodium, Blood 139 mmol/L (136-145); Total Protein, Blood 7.8 g/dL (6.4-8.2)
[2024-11-15] MEDS ORDERED: Furosemide 40 MG Tab PO SCH (09:00)
[2024-11-15] MEDS ORDERED: Furosemide 10 MG/ML 10ML Vial IV STA (14:34)
[2024-11-15 14:59] LABS: PCO2 Arterial 45.5 mmHg (35-45); PO2 Arterial 52.9 mmHg (80-100); pH Blood Arterial 7.41 (7.35-7.45)
--- NOTE | 2024-11-15 15:27 | NUR ---
RAPID RESPONSE PT SATS STARTED TO DECLINE FROM 90S TO 80S AND THEN LOW 70S. VERIFIED READING W/SECOND PULSE OX. PT PANICKED, TACHYPNIC AND COMPLAINING THAT COULDN'T BREATHE AND "FREAKING OUT". HEARD SLIGHT CRACKLES WHEN PT WAS CLEAR AND HOUR BEFORE UPON AUSCULATION. CALLED RT AND ASKED TO COME TO BEDSIDE IMMEDIATELY. VS WERE 143/101, 02 88% ON 10L (INCREASED FROM 5 L PER RT INSTRUCTIONS) HR 127 AND RR 36. OMER S/RT ARRIVED TO ROOM AND THIS RN STEPPED OUT TO CALL DR MALHOTRA. OMER REPORTED PT HAD SIGNIFICANT CRACKLES NOTED. DR MALHOTRA GAVE PHONE ORDERS FOR STAT OT DOSE OF 60 MG IV LASIX. OMER/RT CALLED RAPID RESPONSE. LASIX GIVEN AT 1443. PT PLACED ON BIPAP AT 1440. LABS AND CHEST XR COMPLETED. ABG DRAWN. TRANSFERRED TO ICU. THIS RN CALLED PT'S SPOUSE TO UPDATE HIM ON SITUATION.
--- NOTE | 2024-11-15 15:33 | NUR ---
BLOCK NOTE FOR INTUBATION PROCEDURE BLADE GROOVER FROM 226 TO ICU 4. PT'S RR 42 ON BIPAP FIO2 100% VIBHA 86 DOWN TO 75 % PT IS BECOMING WEAKER AND LESS RESPONSIVE. RSI KIT AND RT WITH DR MEYERS TO INTUBATE PT 1515. 1520 PULSE 126 SAO2 75% RR 44 1521 ETOMIDATE 35 GIVEN 1522 ROCURONIUM GIVEN 100 1522 SAO2 71% PULSE 114 BP 114/84 1523 SPO2 50% DOWN TO 48% DOWN TO 44% 1524 SPO2 44% PULSE 120 PEEP VALVE UP TO 15 1525 INTUBATED 7.0 24 AT TEETH PULSE 94 SPO2 50% POSITIVE COLOR CHANGE BP 84/63 MAP 70 PULSE 98 FIO2 50% AND BVM WITH PEEP VALVE GOING SA02 CLIMING UP TO 74-95-81-80-92%. RT TO SECURE ETT AND STAFF PLACING OG. X-RAY COMPLETED [address] MEYERS. 1545 LEVOPHED ORDERED, PROPOFOL ORDERED, RESTRAINTS ORDERED, VEGA ORDERED PRIMARY RN TO RESUME CARE 1545 - PULSE 134 BP 164/76 MAP 101 SPO2 95%.
[2024-11-15] MEDS ORDERED: fentaNYL citrate 1,000 MCG in NS 80 ML IV SCH (15:35)
[2024-11-15] MEDS ORDERED: Furosemide 10 MG / ML 2ML Vial IV ONE (15:40)
[2024-11-15] MEDS ORDERED: propofoL 100 ML IV ONE (15:44)
[2024-11-15] MEDS ORDERED: propofoL 100 ML IV SCH (15:50)
--- NOTE | 2024-11-15 16:32 | NUR ---
DR. MUNOZ AT BEDSIDE FOR EMERGENT CENTRAL LINE PLACEMENT. TIMEOUT PERFORMED AT 1632, PATIENT/PROCEDURE/EQUIPMENT/SITE/STAFF IDENTIFIED. STERILE PROCEDURE FOLLOWED BY PHYSICIAN AND AID.
--- NOTE | 2024-11-15 16:48 | NUR ---
Upon responding to a rapid response, Chaplain Rivero and I visited with the patient's sister, Karol in the hallway while the clinical team attended to the patient. Karol talks about her coping skills and support system and seems to be managing the stress of the moment well as we continue to assist with distraction techniques and encourgement. We help her get her bearings in building as we followed the patient and the clinical team over to the ICU. We then help Karol bring the plants in the patient's 226 room to her car and continued conversations of yazidi and explored ways that she can stay at peace. We provided therapeutic listening, normalized her feelings and fears and supplied a prayer. Karol responded well and showed signs of reduced stress.
[2024-11-15 16:50] LABS: Source, Urine Foley catheter
[2024-11-15 16:58] LABS: Appearance, Urine Hazy (Clear); Bilirubin, Urine Neg (Neg); Blood, Urine 4+ (Neg); Glucose Qualitative, Urine 4+ (Neg); Ketones, Urine Neg (Neg); Leukocyte Esterase, Urine Neg (Neg); Nitrite, Urine Neg (Neg); Protein, Urine 2+ (Neg); Urobilinogen, Urine NORM (Normal)
[2024-11-15 17:14] LABS: Color, Urine Pale Yellow (P-Yellow)
[2024-11-15 17:15] LABS: Amorphous Mod (0-Heavy); Bacteria Rare /hpf; Squamous Epithelial Cells Not Seen /hpf (Few); White Blood Cells, Urine 0-2 /hpf (0-5)
[2024-11-15 17:34] LABS: PCO2 Arterial 41.2 mmHg (35-45); PO2 Arterial 98.4 mmHg (80-100); pH Blood Arterial 7.48 (7.35-7.45)
[2024-11-15 17:35] LABS: BASOPHILS ABSOLUTE AUTO 0.03 K/mm3 (0.00-0.23); BASOPHILS PERCENT AUTO 0 % (0-2); EOSINOPHILS ABSOLUTE AUTO 0.01 K/mm3 (0.00-0.68); EOSINOPHILS PERCENT AUTO 0 % (0-6); Hematocrit 26.1 % (33.0-51.0); IMMATURE GRAN ABSOLUTE AUTO 0.16 K/mm3 (0.00-0.10); IMMATURE GRAN PERCENT AUTO 1 % (0-1); LYMPHOCYTES ABSOLUTE AUTO 0.62 K/mm3 (0.84-5.20); LYMPHOCYTES PERCENT AUTO 3 % (21-46); MONOCYTES ABSOLUTE AUTO 0.73 K/mm3 (0.16-1.47); MONOCYTES PERCENT AUTO 4 % (4-13); Mean Corpuscular HGB 27.1 pg (26.0-34.0); Mean Corpuscular HGB Conc 30.7 g/dL (31.5-36.5); Mean Corpuscular Volume 89 fL (80-100); NEUTROPHILS PERCENT AUTO 92 % (41-73); Platelet Count 373 K/mm3 (150-400); RDW Coefficient Variation 15.7 % (11.7-14.2); RDW Standard Deviation 50.4 fL (35.1-46.3); Red Blood Cell Count 2.95 M/mm3 (3.80-5.20); White Blood Cell Count 19.35 K/mm3 (4.00-11.30)
[2024-11-15 17:59] LABS: Albumin, Blood 1.7 g/dL (3.4-5.0); Albumin/Globulin Ratio 0.3 (0.8-1.8); Bilirubin, Total 0.6 mg/dL (0.1-1.0); Bun/Creatinine Ratio 31.3 (12.0-20.0); Calcium, Blood 8.4 mg/dL (8.5-10.1); Creatinine, Blood 2.3 mg/dL (0.40-1.00); Globulin, Blood 6.3 g/dL (2.2-4.0); Potassium, Blood 5.1 mmol/L (3.5-5.5)
--- NOTE | 2024-11-15 18:08 | NUR ---
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 PROVIDERS AWARE OF WOUND. UNABLE TO OBTAIN PHOTOGRAPHS DUE TO CRITICAL INSTABILITY OF PATIENT. BLADDER TEMP 103.4, TYLENOL ADMINISTERED, ICE PACKS APPLIED, FAN DIRECTED TO PATIENT FOR COOLING. DR. MUNOZ NOTIFIED OF TEMP/WBC/HGB/HCT/UA/ABG. REMAINING LABS PENDING.
[2024-11-15] MEDS ORDERED: Cefepime HCl 2,000 MG in NS 100 ML IV SCH (19:00)
--- NOTE | 2024-11-15 19:00 | NUR ---
ASSUMED CARE OF PT AT 1900. PT INTUBATED AND RESTING ON BED, RASS -2. TOLERATING VENT. PT HAS PROPOFOL RUNNING AT 20MCG/KG/MIN, LEVOPHED AT 15MCG/MIN, AND FENTANYL AT 100MCG/HR. NSR ON CONTINUOUS HR DIRECTOR. MAP>65. PT IS FEBRILE, PREVIOUS RN STS TYLENOL HAS BEEN GIVEN. TEMP PROBE VEGA IN PLACE AND DRAINING TO GRAVITY. PT TO RECIEVE UNIT OF BLOOD, PROVIDER ALEXANDER AT BEDSIDE, LABS ORDERED AND UPDATED ON PT STATUS. PLAN OF CARE ONGOING.
[2024-11-15] MEDS ORDERED: Vancomycin HCL 1,250 MG in NS 250 ML IV ONE (19:30)
[2024-11-15] MEDS ORDERED: Pantoprazole Sodium 40 MG Injection IV SCH (20:00)
[2024-11-15] MEDS ORDERED: Aspirin 81 MG Chew PT SCH (20:35)
[2024-11-15] MEDS ORDERED: Aspirin 325 MG Tab PO ONE (20:55)
[2024-11-15 20:58] LABS: BASOPHILS ABSOLUTE AUTO 0.04 K/mm3 (0.00-0.23); BASOPHILS PERCENT AUTO 0 % (0-2); EOSINOPHILS ABSOLUTE AUTO 0.01 K/mm3 (0.00-0.68); EOSINOPHILS PERCENT AUTO 0 % (0-6); Hematocrit 26.1 % (33.0-51.0); Hemoglobin 8.2 g/dL (11.5-16.0); IMMATURE GRAN ABSOLUTE AUTO 0.22 K/mm3 (0.00-0.10); IMMATURE GRAN PERCENT AUTO 1 % (0-1); LYMPHOCYTES ABSOLUTE AUTO 1.46 K/mm3 (0.84-5.20); LYMPHOCYTES PERCENT AUTO 8 % (21-46); MONOCYTES ABSOLUTE AUTO 1.17 K/mm3 (0.16-1.47); MONOCYTES PERCENT AUTO 6 % (4-13); Mean Corpuscular HGB 27.2 pg (26.0-34.0); Mean Corpuscular HGB Conc 31.4 g/dL (31.5-36.5); Mean Corpuscular Volume 86 fL (80-100); Mean Platelet Volume 9.5 fL (9.1-12.4); NEUTROPHILS PERCENT AUTO 85 % (41-73); Platelet Count 424 K/mm3 (150-400); RDW Coefficient Variation 15.6 % (11.7-14.2); RDW Standard Deviation 49.1 fL (35.1-46.3); Red Blood Cell Count 3.02 M/mm3 (3.80-5.20)
[2024-11-15] MEDS ORDERED: Cetylpyridinium Chloride 1 EA MISC MT SCH (21:15)
[2024-11-15 21:16] LABS: Calcium, Blood 8.7 mg/dL (8.5-10.1); Creatinine, Blood 2.47 mg/dL (0.40-1.00); Phosphorus, Blood 4.2 mg/dL (2.5-4.9); Potassium, Blood 4.2 mmol/L (3.5-5.5)
[2024-11-15] MEDS ORDERED: Dose Adjust by Pharmacy XX STA (21:19)
[2024-11-15] MEDS ORDERED: Heparin Sodium,Porcine/0.5 NS 500 ML IV SCH (21:20)
[2024-11-15 21:27] LABS: Anti-Xa UFH, PHA Monitoring <0.10 IU/mL; International Normalized Ratio 1.19; Prothrombin Time Results 12.6 Sec (9.7-11.5)
[2024-11-16] VITALS (96 sets, daily range): BP systolic 84–129; BP diastolic 47–76
[2024-11-16] MEDS ORDERED: Hydrogen Peroxide 1.5 % Solution MT SCH
[2024-11-16 04:40] LABS: BASOPHILS ABSOLUTE AUTO 0.06 K/mm3 (0.00-0.23); BASOPHILS PERCENT AUTO 0 % (0-2); EOSINOPHILS ABSOLUTE AUTO 0.04 K/mm3 (0.00-0.68); EOSINOPHILS PERCENT AUTO 0 % (0-6); Hematocrit 26.5 % (33.0-51.0); Hemoglobin 8.7 g/dL (11.5-16.0); IMMATURE GRAN ABSOLUTE AUTO 0.18 K/mm3 (0.00-0.10); IMMATURE GRAN PERCENT AUTO 1 % (0-1); LYMPHOCYTES ABSOLUTE AUTO 3.34 K/mm3 (0.84-5.20); LYMPHOCYTES PERCENT AUTO 20 % (21-46); MONOCYTES ABSOLUTE AUTO 1.78 K/mm3 (0.16-1.47); MONOCYTES PERCENT AUTO 11 % (4-13); Mean Corpuscular HGB 28.3 pg (26.0-34.0); Mean Corpuscular HGB Conc 32.8 g/dL (31.5-36.5); Mean Corpuscular Volume 86 fL (80-100); Mean Platelet Volume 9.5 fL (9.1-12.4); NEUTROPHILS ABSOLUTE AUTO 11.45 K/mm3 (1.96-9.15); NEUTROPHILS PERCENT AUTO 68 % (41-73); Platelet Count 376 K/mm3 (150-400); RDW Coefficient Variation 15.9 % (11.7-14.2); Red Blood Cell Count 3.07 M/mm3 (3.80-5.20); White Blood Cell Count 16.85 K/mm3 (4.00-11.30)
[2024-11-16 05:12] LABS: Vancomycin, Random 28.7 ug/mL
[2024-11-16] MEDS ORDERED: Dose Adjust by Pharmacy XX STA (05:30)
[2024-11-16] MEDS ORDERED: Heparin Sodium 5000 Units/ML 1ML MDV IV ONE (05:30)
--- NOTE | 2024-11-16 06:05 | NUR ---
End of shift summary No acute events overnight. Pt rouses pt painful stimuli. Propofol at 15mcg/kg/min, fentanyl 50mcg/hr, levophed 5mcg/min, and heparin at 17units/kg/hr. Pt tolerating vent, settings: ac/vc: 22/380/14/50%. Pt nsr/oni on continuous monitor, rate of 50-60s. Levophed titrated to maintain map>65. Pt recieved 1 unit of blood. Temp probe campos patent and draining to gravity- good output. No bm this shift. Pt recieved bed bath, mepilex to wound on coccyx, photo taken and placed in chart. Interdry to pannus and placed underneath breasts. Pt turned [id number]. Restraints to bilat upper extremities. Plan of care ongoing.
[2024-11-16] MEDS ORDERED: Cetylpyridinium Chloride 1 EA MISC MT SCH (08:00)
[2024-11-16] MEDS ORDERED: Docusate Sodium 100 MG UDC PO SCH (11:00)
[2024-11-16] MEDS ORDERED: Furosemide 10 MG/ML 4ML Vial IV SCH (18:00)
[2024-11-16] MEDS ORDERED: Clarify Drug Order XX ONE (18:10)
[2024-11-16 18:14] LABS: Magnesium, Blood 2.4 mg/dL (1.6-2.4)
[2024-11-16 18:15] LABS: Albumin, Blood 1.7 g/dL (3.4-5.0); Albumin/Globulin Ratio 0.3 (0.8-1.8); Bilirubin, Total 0.4 mg/dL (0.1-1.0); Bun/Creatinine Ratio 31.8 (12.0-20.0); Calcium, Blood 8.7 mg/dL (8.5-10.1); Creatinine, Blood 2.83 mg/dL (0.40-1.00); Globulin, Blood 5.8 g/dL (2.2-4.0); Potassium, Blood 3.5 mmol/L (3.5-5.5); Total Protein, Blood 7.5 g/dL (6.4-8.2)
--- NOTE | 2024-11-16 19:50 | NUR ---
PT RASS -2, LIGHTLY SEDATED, PROPOFOL/FENTANYL/LEVOPHED/HEPARIN INFUSING PER MAR. PT AROUSABLE AND ABLE TO FOLLOW COMMANDS WITH WEAKNESS. BILATERAL UPPER EXTREMITY RESTRAINTS NONVIOLENT, SAFELY SECURED. ETT TUBE SECURED, SETTINGS PER ORDERS, OGT TUBE INTACT AND SECURE, CLAMPED. NSR, SOFT BPS INTERMITTENTLY, LEVOPHED AND SEDATION ADJUSTED ACCORDINGLY. NO BM, VEGA TO GRAVITY, AROUND 650 ML OUT FOR SHIFT. RECEIVED 40MG PO AND 40 MG IV LASIX. TROPONINS TRENDING UPWARD BUT STEADY. CARDIOLOGY AWARE. CVL TO RIJ, PIV TO LWRI. SAFETY, COMFORT, HYGIENE ADDRESSED.
[2024-11-17] VITALS (93 sets, daily range): BP systolic 91–156; BP diastolic 50–85
[2024-11-17 04:39] LABS: Hematocrit 24.9 % (33.0-51.0); Hemoglobin 8.1 g/dL (11.5-16.0); Mean Corpuscular HGB 28.3 pg (26.0-34.0); Mean Corpuscular HGB Conc 32.5 g/dL (31.5-36.5); Mean Corpuscular Volume 87 fL (80-100); Mean Platelet Volume 9.6 fL (9.1-12.4); Platelet Count 351 K/mm3 (150-400); RDW Coefficient Variation 16.5 % (11.7-14.2); Red Blood Cell Count 2.86 M/mm3 (3.80-5.20); White Blood Cell Count 16.95 K/mm3 (4.00-11.30)
[2024-11-17 05:00] LABS: Alanine Aminotransfer (ALT/SGP 10 U/L (12-78); Albumin, Blood 1.7 g/dL (3.4-5.0); Albumin/Globulin Ratio 0.3 (0.8-1.8); Alk Phos 134 U/L (50-136); Anion Gap 11 mmol/L (3-11); Aspartate Aminotrans (AST/SGOT 52 U/L (12-37); Bilirubin, Total 0.3 mg/dL (0.1-1.0); Blood Urea Nitrogen 87 mg/dL (8-24); Bun/Creatinine Ratio 31.1 (12.0-20.0); CO2, Blood 28 mmol/L (21-32); Calcium, Blood 8.2 mg/dL (8.5-10.1); Chloride, Blood 104 mmol/L (98-108); Globulin, Blood 5.9 g/dL (2.2-4.0); Glomerular Filtration Rate 19 (60-); Glucose, Blood 125 mg/dL (70-99); Potassium, Blood 3.3 mmol/L (3.5-5.5); Sodium, Blood 140 mmol/L (136-145); Total Protein, Blood 7.6 g/dL (6.4-8.2); Vancomycin, Random 16.4 ug/mL
[2024-11-17 05:35] LABS: BASOPHILS PERCENT MAN 0 % (0-2); EOSINOPHILS ABSOLUTE MAN 0.16 K/mm3 (0.00-0.68); EOSINOPHILS PERCENT MAN 1 % (0-6); LYMPHOCYTES ABSOLUTE MAN 3.89 K/mm3 (0.84-5.20); LYMPHOCYTES PERCENT MAN 23 % (21-46); MONOCYTES ABSOLUTE MAN 1.18 K/mm3 (0.16-1.47); MONOCYTES PERCENT MAN 7 % (4-13); NEUTROPHILS ABSOLUTE MAN 11.69 K/mm3 (1.96-9.15); SEG NEUTROPHILS PERCENT MAN 69 % (41-73); TOTAL CELLS COUNTED 100
[2024-11-17] MEDS ORDERED: Clarify Drug Order XX ONE (06:15)
[2024-11-17] MEDS ORDERED: Potassium Chl 20MEQ/Water100ML 100 ML IV SCH (06:20)
[2024-11-17] MEDS ORDERED: Potassium Chloride 40 MEQ in NS 250 ML IV ONE (06:40)
--- NOTE | 2024-11-17 06:46 | NUR ---
END OF SHIFT SUMMARY NO ACUTE EVENTS OVER NIGHT. SHE IS SEDATED AND INTUBATED. SHE IS SEDATED WITH PROPOFOL INFUSING AT 20MCG/KG/MIN AND FENTANYL INFUSING AT 50MCG/HR; RASS -2. MAX TEMP 101; PRN TYLENOL GIVEN AND FAN PLACED; TEMP NOW 100. VENT SETTINGS AC/VC 20/380/10/35%. HR 50-70'S. SBP 100-120'S WITH MAP LOW 70'S; LEVOPHED INFUSING AT 8MCG/MIN. OG IN PLACE AND CLAMPED. VEGA IN PLACE AND DRAINING TO GRAVITY. RIGHT BKA DRESSING C/D/I. HEPARIN INFUSING AT 17UNITS/KG/HR. CENTRAL LINE TO RIJ PATENT WITH DRESSING C/D/I. CALL MADE TO DR MARIE FOR POTASSIUM 3.3 THIS AM; NEW ORDERS PROVIDED. WILL REPORT TO AM RN WHEN AVAILABLE.
--- NOTE | 2024-11-17 07:00 | NUR ---
ASSUMPTION OF CARE PT RECEIVING PROPOFOL 20MCG/KG/HR, LEVOPHED 8MCG/HR, HEPARIN 17UNITS/KG/HR, AND FENTANYL 50MCG/HR. SHE IS ON THE VENT WITH SETTINGS AC/VC 20/380/10/40%. RASS -2. CORE TEMP 100.1. R LEG DRESSING C/D/I. VEGA PATENT AND DRAINING CLOUDY YELLOW URINE.
[2024-11-17] MEDS ORDERED: Vancomycin HCL 1,250 MG in NS 250 ML IV SCH (09:00)
[2024-11-17] MEDS ORDERED: FentaNYL Citrate 50 MCG/ML 2 ML Injection IV PRN (10:55)
--- NOTE | 2024-11-17 11:55 | NUR ---
UPDATE PROPOFOL OFF SINCE 1027 AND FENTANYL OFF SINCE AT 1040. PT IS AWAKE, CALM AND ABLE TO FOLLOW SIMPLE COMMANDS. SHE ANSWERS QUESTIONS BY NODDING/SHAKING HEAD. SHE HAS STRONG BILAT HAND STRENGTH AND MOVES LLE TO COMMAND. ATTEMPTING SBT. AT BEDSIDE.
[2024-11-17] MEDS ORDERED: Insulin Human Lispro 100 Units/ML 3ML Syringe SC SCH ×2 (12:00)
[2024-11-17] MEDS ORDERED: Potassium Chloride 20 MEQ/15 ML UDC PO ONE (12:00)
[2024-11-17 13:18] LABS: Acinetobacter baumannii DNA Not Detected copy/mL (NOT DETECT); Adenovirus DNA Not Detected (NOT DETECT); Chlamydia pneumonia Not Detected (NOT DETECT); Enterobacter cloacae DNA Not Detected copy/mL (NOT DETECT); Escherichia coli DNA Not Detected copy/mL (NOT DETECT); Haemophilus influenzae DNA Not Detected copy/mL (NOT DETECT); Human Coronavirus RNA Not Detected (NOT DETECT); Human Metapneumovirus RNA Not Detected (NOT DETECT); Influenza virus A RNA Not Detected (NOT DETECT); Influenza virus B RNA Not Detected (NOT DETECT); Klebsiella aerogenes DNA Not Detected copy/mL (NOT DETECT); Klebsiella oxytoca DNA Not Detected copy/mL (NOT DETECT); Klebsiella pneumoniae DNA Not Detected copy/mL (NOT DETECT); Legionella pneumophila Not Detected (NOT DETECT); Moraxella catarrhalis DNA Not Detected copy/mL (NOT DETECT); Mycoplasma pneumoniae Not Detected (NOT DETECT); Parainfluenza virus RNA Not Detected (NOT DETECT); Proteus sp DNA Not Detected copy/mL (NOT DETECT); Pseudomonas aeruginosa DNA Not Detected copy/mL (NOT DETECT); Respiratory syncytial Vir RNA Not Detected (NOT DETECT); Rhinovirus+Enterovirus RNA Not Detected (NOT DETECT); Serratia marcescens DNA Not Detected copy/mL (NOT DETECT); Staphylococcus aureus DNA Not Detected copy/mL (NOT DETECT); Streptococcus agalactiae DNA Not Detected copy/mL (NOT DETECT); Streptococcus pneumoniae DNA Not Detected copy/mL (NOT DETECT); Streptococcus pyogenes DNA Not Detected copy/mL (NOT DETECT)
[2024-11-17 16:13] LABS: Triglycerides 129 mg/dL (30-160)
--- NOTE | 2024-11-17 17:57 | NUR ---
SHIFT SUMMARY PT RECEIVING PROPOFOL 30MCG/KG/MIN, LEVOPHED 4MCG/MIN, AND HEPARIN 17UNITS/KG/HR. SHE REMAINS INTUBATED WITH VENT SETTINGS AC/VC 16/380/7/40%. PT TOLERATED SEDATION VACATION FOR A FEW HOURS. SHE WAS ALERT, ABLE TO ANSWER QUESTIONS BY NODDING/SHAKING HEAD AND FOLLOWED SIMPLE COMMANDS. FAILED SBT. SINUS ON MONITOR WITH RATE IN 70S-80S. LEVOPHED TITRATED DOWN THROUGHOUT THE SHIFT WITH MAP >65. TUBE FEEDING STARTED VIA OGT THIS AFTERNOON. VEGA PATENT AND DRAINING TO GRAVITY. TMAX 100.7. AT BEDSIDE TODAY AND UPDATED.
[2024-11-17] MEDS ORDERED: Insulin Glargine-Yfgn 100 Unit/mL 3 ML SYR SC SCH (18:00)
[2024-11-17] MEDS ORDERED: Arginine/Glutamine/Calcium Hmb 1 Packet PT SCH (21:00)
--- NOTE | 2024-11-17 21:20 | NUR ---
ASSUMPTION OF CARE REPORT RECEIVED FROM RAFAEL MIRANDA, BSN, CCRN. PT LYING IN BED INTUBATED AND SEDATED. PT OPENS EYES TO VOICE AND FOLLOWS COMMANDS. PT DENIES PAIN. PROPOFOL INFUSING AT 30MCG/KG/MIN. PT MOVES ALL EXTREMITIES. CRANIAL NERVES GROSSLY INTACT. SINUS RHYTHM 70-90 WITH MAP > 65, LEVO AT 3 MCG/MIN. HEPARIN INFUSING AT 17 UNITS/KG/HR. VENT SETTINGS: ACVC 16/MIN 380ML 7.0 (DOWN FROM 10 OF THIS AM) AND 40%. PT BREATHING AT RATE OF 18. TUBE IS 7.0 AT 25.0 TEETH. BOWEL REGIMEN IN PROGRESS. TUBE FEED AT 25ML/HR WITH 30ML Q 4HR H20 FLUSHES. GOAL IS 50. VEGA IN PLACE AND PATENT. RIJ CENTRAL CATHETER INFUSING, DRAWS AND FLUSHES AT NON-INFUSING PORT. PT HAS OPEN WOUND ON COCCYX COVERED WITH MEPILEX. WILL CHANGE THIS SHIFT ALONG WITH BED BATH. RIGHT BKA INCISION/WOUND IS CLEAN, DRY.
[2024-11-18] VITALS (57 sets, daily range): BP systolic 94–145; BP diastolic 45–97
[2024-11-18 03:37] LABS: BASOPHILS ABSOLUTE AUTO 0.04 K/mm3 (0.00-0.23); BASOPHILS PERCENT AUTO 0 % (0-2); EOSINOPHILS ABSOLUTE AUTO 0.38 K/mm3 (0.00-0.68); EOSINOPHILS PERCENT AUTO 3 % (0-6); Hematocrit 22.9 % (33.0-51.0); Hemoglobin 7.3 g/dL (11.5-16.0); IMMATURE GRAN ABSOLUTE AUTO 0.14 K/mm3 (0.00-0.10); IMMATURE GRAN PERCENT AUTO 1 % (0-1); LYMPHOCYTES ABSOLUTE AUTO 2.79 K/mm3 (0.84-5.20); LYMPHOCYTES PERCENT AUTO 19 % (21-46); MONOCYTES ABSOLUTE AUTO 1.58 K/mm3 (0.16-1.47); MONOCYTES PERCENT AUTO 11 % (4-13); Mean Corpuscular HGB 28.3 pg (26.0-34.0); Mean Corpuscular HGB Conc 31.9 g/dL (31.5-36.5); Mean Corpuscular Volume 89 fL (80-100); Mean Platelet Volume 9.7 fL (9.1-12.4); NEUTROPHILS ABSOLUTE AUTO 9.93 K/mm3 (1.96-9.15); NEUTROPHILS PERCENT AUTO 67 % (41-73); Platelet Count 266 K/mm3 (150-400); Red Blood Cell Count 2.58 M/mm3 (3.80-5.20); White Blood Cell Count 14.86 K/mm3 (4.00-11.30)
[2024-11-18 04:02] LABS: Magnesium, Blood 2.4 mg/dL (1.6-2.4)
[2024-11-18 04:12] LABS: Phosphorus, Blood 4.7 mg/dL (2.5-4.9); Vancomycin, Trough 26.7 ug/mL (5.0-10.0)
[2024-11-18 04:13] LABS: Bun/Creatinine Ratio 31.3 (12.0-20.0); Calcium, Blood 7.9 mg/dL (8.5-10.1); Creatinine, Blood 2.68 mg/dL (0.40-1.00); Potassium, Blood 3.9 mmol/L (3.5-5.5)
[2024-11-18] MEDS ORDERED: Potassium Chloride 20 MEQ TabCR PT ONE (05:25)
[2024-11-18] MEDS ORDERED: Clarify Drug Order XX ONE (05:35)
[2024-11-18] MEDS ORDERED: Potassium Chloride 20 MEQ/15 ML UDC PT ONE (07:00)
--- NOTE | 2024-11-18 07:22 | NUR ---
SHIFT SUMMARY PT LYING IN BED SEDATED AND INTUBATED. PT ON PROPOFOL 20MCG/KG/MIN. MAEW, LESS WITH LE THAN UPPER. FOLLOWS COMMANDS; USES HEAD NODS AND HAND MOTIONS TO MAKE NEEDS KNOWN. HR SINUS RHYTHYM AND BP STABLE ON 2.5 OF LEVO. HEP INFUSING AT 17. IT WAS NOTED BY ALL INTERESTED PARTIES THAT THE HEMOGLOBIN WAS 7.3 THIS MORNING. A REPEAT WILL BE DRAWN AT NOON TODAY. IONAIZED CA WAS DRAWN IN RESPONSE TO CA OF 7.9, AND K 3.9 WAS ADDRESSED WITH 40KCL ELIXIR. VENT SETTINGS HAVE NOT CHANGED 16/MIN 380ML 7.0 PEEP AND 40% FI02. MINIMAL SECRETIONS THOUGH BLEEDING OF LOWER GUMS; CARE SHOULD BE TAKEN WITH ORAL TREATMENTS.3LARGE BMS THIS SHIFT, PROGRESSIVELY MORE LIQUID. NO SIGNS OF BLEEDING OVERALL. VEGA PATENT AND DRAINING. 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 COCCYX DRESSING WAS REPLACED DURING SHIFT. PT HAS CALL LIGHT NEARBY. TF AT 45 WITH GOAL OF 50.
[2024-11-18] MEDS ORDERED: dexmedeTOMIDine 100 ML IV SCH (09:45)
[2024-11-18 14:17] LABS: Hematocrit 26.2 % (33.0-51.0); Hemoglobin 8.4 g/dL (11.5-16.0)
[2024-11-18] MEDS ORDERED: Docusate Sodium 100 MG UDC PO PRN (15:29)
--- NOTE | 2024-11-18 18:43 | NUR ---
SUMMARY PT WAS ON PS SETTINGS ON VENT MOST OF THE DAY AND OFF SEDATION. PT WAS ABLE TO REMAIN CALM, A/O X4, EITHER SIGNS OR WRITES ON PAPER TO MAKE NEEDS KNOWN. USES CALL LIGHT APPROPRIATELY. THIS EVENING DR. MEYERS IN TO SEE PT AND PLACED PT BACK ON AC 16, TV 380, PEEP 7, FIO2 40%. PT ALSO PLACED ON PRECEDEX FOR SEDATION. DR. RO IN TO SEE PT TONIGHT AND WILL CHECK BACK TOMORROW. TOLERATING TF. HAD MULTIPLE LOOSE BM'S AND WAS ABLE TO CALL FOR BEDPAN. DRESSING CHANGE DONE TO R BKA PER ORDERS, NO SIGNS OF INFLAMMATION, SUTURES AND PIERO INTACT. PT ABLE TO LIFT ALL EXTREMITIES ON COMMAND. NO OTHER CHANGES.
[2024-11-19] VITALS (31 sets, daily range): BP systolic 96–115; BP diastolic 57–68
--- NOTE | 2024-11-19 00:25 | NUR ---
ASSUMPTION OF CARE CARE ASSUMED FROM RUTH MIRANDA FOLLOWING BEDSIDE HANDOFF. PT INTUBATED AND SEDATED ON 0.2 MCG/KG/HR OF PRECEDEX. PT DENIES PAIN. MAKES NEEDS KNOWN WITH HEAD NODS AND HAND MOVEMENTS. RESTRAINTS IN PLACE. SINUS RHYTHM AND STABLE BP OFF LEVOPHED. VENT SETTINGS SAME YESTERDAY FOLLOWING TRIAL OF PRESSURE SUPPORT TODAY. VEGA IN PLACE DRAINING PALE, CLOUDLY YELLOW URINE. CALL LIGHT IS NEARBY BUT SEDATION RASS OF -1 TO -2 WILL REQUIRE FREQUENT CHECKS OF COMFORT. HEPARIN INFUSING AT 17. TF AT GOAL OF 60 WITH 100ML Q 6 HR FLUSHES.
[2024-11-19 03:47] LABS: BASOPHILS ABSOLUTE AUTO 0.03 K/mm3 (0.00-0.23); BASOPHILS PERCENT AUTO 0 % (0-2); EOSINOPHILS ABSOLUTE AUTO 0.39 K/mm3 (0.00-0.68); EOSINOPHILS PERCENT AUTO 4 % (0-6); Hemoglobin 7.9 g/dL (11.5-16.0); IMMATURE GRAN ABSOLUTE AUTO 0.09 K/mm3 (0.00-0.10); IMMATURE GRAN PERCENT AUTO 1 % (0-1); LYMPHOCYTES ABSOLUTE AUTO 2.31 K/mm3 (0.84-5.20); LYMPHOCYTES PERCENT AUTO 21 % (21-46); MONOCYTES ABSOLUTE AUTO 1.01 K/mm3 (0.16-1.47); MONOCYTES PERCENT AUTO 9 % (4-13); Mean Corpuscular HGB 27.8 pg (26.0-34.0); Mean Corpuscular HGB Conc 31.6 g/dL (31.5-36.5); Mean Corpuscular Volume 88 fL (80-100); Mean Platelet Volume 10.3 fL (9.1-12.4); NEUTROPHILS ABSOLUTE AUTO 7.11 K/mm3 (1.96-9.15); NEUTROPHILS PERCENT AUTO 65 % (41-73); Platelet Count 236 K/mm3 (150-400); RDW Coefficient Variation 17.4 % (11.7-14.2); Red Blood Cell Count 2.84 M/mm3 (3.80-5.20); White Blood Cell Count 10.94 K/mm3 (4.00-11.30)
[2024-11-19 04:05] LABS: Magnesium, Blood 2.7 mg/dL (1.6-2.4); Phosphorus, Blood 4.1 mg/dL (2.5-4.9)
[2024-11-19 04:42] LABS: Bun/Creatinine Ratio 33.3 (12.0-20.0); Creatinine, Blood 2.76 mg/dL (0.40-1.00); Potassium, Blood 4.1 mmol/L (3.5-5.5)
[2024-11-19] MEDS ORDERED: Heparin Sodium 5000 Units/ML 1ML MDV IV ONE (05:50)
--- NOTE | 2024-11-19 07:22 | NUR ---
SHIFT SUMMARY PT LYING IN BED SEDATED AND INTUBATED. PT SEDATED ON PRECEDEX 0.2 MCG/KG/HR. MAEW, LESS WITH LE THAN UPPER. FOLLOWS COMMANDS; USES HEAD NODS AND HAND MOTIONS TO MAKE NEEDS KNOWN. HR SINUS RHYTHYM AND BP STABLE- OFF LEVOPHED. HEP INFUSING AT 19 UNITS/KG/HR. HEMOGLOBIN 7.9 THIS MORNING DOWN FROM 8.3 POST PRBC. VENT SETTINGS ARE 16/MIN 380ML 7.0 PEEP AND 40% FI02. MINIMAL SECRETIONS AND SMALL BLEEDING OF LOWER GUMS; CARE SHOULD BE TAKEN WITH ORAL TREATMENTS. 1 LARGE LIQUID BM THIS SHIFT, RECTAL TUBE PLACED. NO SIGNS OF BLEEDING OVERALL. VEGA PATENT AND DRAINING. 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 COCCYX DRESSING WAS REPLACED DURING SHIFT. PT HAS CALL LIGHT NEARBY. TF AT GOAL OF 60. Q 6 GLUCOSE NUMBERS HAVE BEEN CLIMBING INTO THE 300'S.
--- NOTE | 2024-11-19 08:52 | NUR ---
Spiritual care visit. This health care law specialist and onboarding health care law specialist Mat visited pt. Pt was awake and alert but unable to communicate verbally because of intubation. We checked on her present state and offered space. We asked pt if they were interested in receiving a prayer. Patient was receptive to this request. Patient displayed evidence of relief following prayer in the form of tears. This health care law specialist affirms the above chart noted by Mat Dawson
[2024-11-19] MEDS ORDERED: Dose Adjust by Pharmacy XX STA ×2 (14:26→21:12)
[2024-11-19] MEDS ORDERED: Insulin Glargine-Yfgn 100 Unit/mL 3 ML SYR SC SCH (18:00)
[2024-11-19] MEDS ORDERED: Insulin Human Lispro 100 Units/ML 3ML Syringe SC SCH (18:00)
--- NOTE | 2024-11-19 19:40 | NUR ---
SUMMARY PT A/O X4. ON VENT WITH PRECEDEX FOR LIGHT SEDATION. PT ABLE TO WRITE ON PAPER OR SIGN TO MAKE NEEDS KNOWN. PT WAS ANXIOUS THIS AM WITH ANY SUCTIONING OF ETT OR COUGHING. ATTEMPTED SBT BUT PT IS NOT TAKING GOOD TIDAL VOLUMES. TOLERATING TUBE FEEDS. BLOOD SUGAR ELAVATED TODAY. DR. CHAIDEZ INCREASED SS AND LONG ACTING INSULIN. REMAINS ON HEPARIN GTT. DR. RO BY TODAY BUT PT'S CREATININE STILL ELEVATED. REVIEWED RHYTHM ON THE MONITOR AND PT HAD 18 SEC RUN OF VTACH THAT WAS REVIEWED. NO OTHER ARRYTHMIAS TODAY. NO PLANS FOR INTERVENTIONS YET. DRESSING TO R BKA DONE TODAY, NO SIGNS OF INFLAMMATION, SUTURES AND PIERO PRESENT. PT MOVES ALL EXTREMITIES ON COMMAND. NO OTHER CHANGES.
--- NOTE | 2024-11-19 20:17 | NUR ---
START OF SHIFT THIS NURSE ASSUMED CARE AT APPROIXAMTELY 1900. PT RESTING IN BED ON VENTILATOR WITH PRECEDEX GTT INFUSING. PT HR IN 60'S WITH SPO2 ABOVE 93%. NO ST ELEVATION NOTED ON TELEMETRY. WILL CONTINUE PLAN OF CARE.
[2024-11-20] VITALS (39 sets, daily range): BP systolic 91–126; BP diastolic 53–102
[2024-11-20 03:52] LABS: BASOPHILS ABSOLUTE AUTO 0.07 K/mm3 (0.00-0.23); BASOPHILS PERCENT AUTO 1 % (0-2); EOSINOPHILS ABSOLUTE AUTO 0.45 K/mm3 (0.00-0.68); EOSINOPHILS PERCENT AUTO 3 % (0-6); Hematocrit 26.4 % (33.0-51.0); Hemoglobin 8.3 g/dL (11.5-16.0); IMMATURE GRAN ABSOLUTE AUTO 0.14 K/mm3 (0.00-0.10); IMMATURE GRAN PERCENT AUTO 1 % (0-1); LYMPHOCYTES ABSOLUTE AUTO 3.76 K/mm3 (0.84-5.20); LYMPHOCYTES PERCENT AUTO 27 % (21-46); MONOCYTES ABSOLUTE AUTO 1.28 K/mm3 (0.16-1.47); MONOCYTES PERCENT AUTO 9 % (4-13); Mean Corpuscular HGB 27.9 pg (26.0-34.0); Mean Corpuscular HGB Conc 31.4 g/dL (31.5-36.5); Mean Corpuscular Volume 89 fL (80-100); Mean Platelet Volume 10.4 fL (9.1-12.4); NEUTROPHILS ABSOLUTE AUTO 8.42 K/mm3 (1.96-9.15); NEUTROPHILS PERCENT AUTO 60 % (41-73); Platelet Count 237 K/mm3 (150-400); RDW Coefficient Variation 17.2 % (11.7-14.2); RDW Standard Deviation 55.3 fL (35.1-46.3); Red Blood Cell Count 2.98 M/mm3 (3.80-5.20); White Blood Cell Count 14.12 K/mm3 (4.00-11.30)
[2024-11-20 04:17] LABS: Magnesium, Blood 2.9 mg/dL (1.6-2.4)
[2024-11-20 04:18] LABS: Albumin, Blood 1.7 g/dL (3.4-5.0); Anion Gap 10 mmol/L (3-11); Blood Urea Nitrogen 100 mg/dL (8-24); Bun/Creatinine Ratio 36.4 (12.0-20.0); CO2, Blood 28 mmol/L (21-32); Calcium, Blood 8.3 mg/dL (8.5-10.1); Chloride, Blood 107 mmol/L (98-108); Creatinine, Blood 2.75 mg/dL (0.40-1.00); Glomerular Filtration Rate 19 (60-); Glucose, Blood 308 mg/dL (70-99); Potassium, Blood 4.2 mmol/L (3.5-5.5); Sodium, Blood 141 mmol/L (136-145)
--- NOTE | 2024-11-20 05:12 | NUR ---
SHIFT SUMMARY PT REMAINS INTUBATED AND SEDATED ON PRECEDEX GTT. HEPARIN GTT UNCHANGED. PT UNABLE TO TOLERATE LAYING FLAT FOR A SHORT PERIOD OF TIME, SPO2 DECREASED TO 78% AND TOOK ROUGHLY 10-15MIN TO RECOVER WITH INCREASED FIO2. WILL CONTINUE PLAN OF CARE.
--- NOTE | 2024-11-20 07:00 | NUR ---
ASSUMPTION OF CARE PT RECEIVING PRECEDEX 0.5MCG/KG/HR AND HEPARIN 19UNITS/KG/HR. SHE IS ON THE VENT WITH SETTINGS AC/VC 16/380/5/50%. RASS -1. PT IS ABLE TO COMMUNICATE BY NODDING/SHAKING HEAD. SHE FOLLOWS SIMPLE COMMANDS. DENIES PAIN AT THIS TIME. SINUS TIA ON MONITOR WITH RATE IN 50S. MAP >65. TUBE FEEDING INFUSING VIA OGT AT GOAL RATE. BOWEL TONES ACTIVE, RECTAL TUBE PATENT. TEMP VEGA PATENT AND DRAINING TO GRAVITY. R BKA DRESSING C/D/I, LEG ELEVATED.
[2024-11-20] MEDS ORDERED: Insulin Regular 100 UNIT/ML 10ML Vial SC SCH (12:00)
--- NOTE | 2024-11-20 15:32 | NUR ---
UPDATE PT HAS BEEN OFF OF PRECEDEX SINCE THIS AM. RASS 0. SHE IS COMMUNICATING BY NODDING/SHAKING HEAD, WRITING AND SIGN LANGUAGE. RESTRAINTS HAVE BEEN OFF SINCE THIS AFTERNOON. FAMILY AT BEDSIDE.
[2024-11-20] MEDS ORDERED: Nitroglycerin 1 INCH/GM PKT TOP SCH (16:00)
--- NOTE | 2024-11-20 19:17 | NUR ---
START OF SHIFT THIS RN ASSUMED CARE AT APPROXIMATELY 1900. PT RESTING IN IN BED ON VENTILATOR WITH PRECEDEX GTT AT 0.2MCG/KG/HR. PT DENIES ANY PAIN. WILL CONTINUE PLAN OF CARE.
[2024-11-21] VITALS (24 sets, daily range): BP systolic 93–153; BP diastolic 56–95
[2024-11-21 04:33] LABS: BASOPHILS ABSOLUTE AUTO 0.06 K/mm3 (0.00-0.23); BASOPHILS PERCENT AUTO 0 % (0-2); EOSINOPHILS ABSOLUTE AUTO 0.49 K/mm3 (0.00-0.68); EOSINOPHILS PERCENT AUTO 3 % (0-6); Hematocrit 26.4 % (33.0-51.0); Hemoglobin 8.3 g/dL (11.5-16.0); IMMATURE GRAN ABSOLUTE AUTO 0.27 K/mm3 (0.00-0.10); IMMATURE GRAN PERCENT AUTO 2 % (0-1); LYMPHOCYTES PERCENT AUTO 23 % (21-46); MONOCYTES PERCENT AUTO 9 % (4-13); Mean Corpuscular HGB Conc 31.4 g/dL (31.5-36.5); Mean Corpuscular Volume 89 fL (80-100); Mean Platelet Volume 11.4 fL (9.1-12.4); NEUTROPHILS PERCENT AUTO 64 % (41-73); NRBC ABSOLUTE 0.02 K/mm3 (0.00-0.02); NRBC Auto 0.1 /100 WBC (0.0-0.2); Platelet Count 246 K/mm3 (150-400); RDW Standard Deviation 55.1 fL (35.1-46.3); Red Blood Cell Count 2.96 M/mm3 (3.80-5.20); White Blood Cell Count 16.82 K/mm3 (4.00-11.30)
--- NOTE | 2024-11-21 04:41 | NUR ---
SHIFT SUMMARY PRECEDEX GTT RESUMED D/T PT RESTLESS AND COUGHING ON VENTILATOR. PT PLACED IN RESTRAINTS D/T CONCERNS OF ACCIDENTAL SELF EXTUBATION. RESTRAINTS DC AT APPROXIMATLY 0400 FOR BEING APPROPRIATE AND FOLLOWING COMMANDS. PT DENIES ANY PAIN. VEGA APPEARED MORE CLOUDY TOWARDS END OF SHIFT. WILL CONTINUE THE PLAN OF CARE.
[2024-11-21 04:53] LABS: Albumin, Blood 1.7 g/dL (3.4-5.0); Anion Gap 11 mmol/L (3-11); Blood Urea Nitrogen 102 mg/dL (8-24); Bun/Creatinine Ratio 37.2 (12.0-20.0); CO2, Blood 27 mmol/L (21-32); Calcium, Blood 8.5 mg/dL (8.5-10.1); Chloride, Blood 110 mmol/L (98-108); Creatinine, Blood 2.74 mg/dL (0.40-1.00); Glomerular Filtration Rate 19 (60-); Glucose, Blood 257 mg/dL (70-99); Magnesium, Blood 3.1 mg/dL (1.6-2.4); Phosphorus, Blood 3.8 mg/dL (2.5-4.9); Potassium, Blood 3.8 mmol/L (3.5-5.5); Sodium, Blood 144 mmol/L (136-145)
[2024-11-21] MEDS ORDERED: Dose Adjust by Pharmacy XX STA (04:57)
--- NOTE | 2024-11-21 07:00 | NUR ---
ASSUMPTION OF CARE PT RECEIVING PRECEDEX 0.2MCG/KG/HR AND HEPARIN 19UNITS/KG/HR. RASS -1. PT IS AWAKE, COMMUNICATING BY NODDING/SHAKING HEAD AND HAND MOTIONS. SHE REMAINS INTUBATED WITH VENT SETTINGS AC/VC 16/380/5/40%. TUBE FEEDING INFUSING AT GOAL RATE VIA OGT. SINUS TIA ON MONITOR WITH RATE IN 50S. MAP >65. TEMP VEGA PATENT AND DRAINING TO GRAVITY. BED IN LOW POSITION, CALL LIGHT WITHIN REACH.
--- NOTE | 2024-11-21 11:50 | NUR ---
UPDATE PT EXTUBATED AT 1055. SHE IS ON 4L NC WITH SPO2 >93% AND TOLERATING WELL. SHE IS ALERT AND ORIENTED, TALKING WITH FAMILY AT BEDSIDE. SHE DENIES SOB AND CP. SINUS ON MONITOR WITH RATE IN 70S. BP STABLE WITH MAP >65. RECTAL TUBE PATENT AND DRAINING. TEMP VEGA PATENT AND DRAINING TO GRAVITY.
[2024-11-21] MEDS ORDERED: Heparin Sodium,Porcine 5,000 UNIT/0.5 ML SDV SC SCH (16:00)
[2024-11-21] MEDS ORDERED: Heparin Sodium 5000 Units/ML 1ML MDV SC SCH (16:00)
[2024-11-21] MEDS ORDERED: Insulin Human Lispro 100 Units/ML 3ML Syringe SC SCH (16:30)
[2024-11-21] MEDS ORDERED: Insulin Glargine-Yfgn 100 Unit/mL 3 ML SYR SC SCH ×2 (18:00)
--- NOTE | 2024-11-21 19:17 | NUR ---
SHIFT SUMMARY PT EXTUBATED AT 1055 AND TOLERATING WELL. SHE IS ON 2L NC WITH SPO2 >93%. SHE IS ALERT AND ORIENTED, PARTICIPATES IN CARE AND CONVERSATION. PT PASSED BEDSIDE SWALLOW AND DIET ADVANCED TO REGULAR CARDIAC. RECTAL TUBE PATENT WITH 600ML OUTPUT. TEMP VEGA PATENT AND DRAINING TO GRAVITY. BED IN LOW POSITION, CALL LIGHT WITHIN REACH.
--- NOTE | 2024-11-21 19:22 | NUR ---
START OF SHIFT PT RESTING COMFORTABLY IN BED ON 2L NC. PT AOX4 GCS 15. PT DENIES ANY CHEST PAIN. HR 90 SPO2 98% WITH BP SYS 120'S/60'S. PT IS VERY PLEASANT AND RECEPTIVE TO CARE. THIS NURSE ASSUMED CARE AT APPROXIMATELY 1910. WILL CONTINUE THE PLAN OF CARE.
[2024-11-22] VITALS (15 sets, daily range): BP systolic 116–156; BP diastolic 58–145
[2024-11-22 03:57] LABS: BASOPHILS ABSOLUTE AUTO 0.07 K/mm3 (0.00-0.23); BASOPHILS PERCENT AUTO 0 % (0-2); EOSINOPHILS PERCENT AUTO 3 % (0-6); Hematocrit 26.5 % (33.0-51.0); Hemoglobin 8.2 g/dL (11.5-16.0); IMMATURE GRAN PERCENT AUTO 3 % (0-1); LYMPHOCYTES ABSOLUTE AUTO 3.09 K/mm3 (0.84-5.20); LYMPHOCYTES PERCENT AUTO 20 % (21-46); MONOCYTES PERCENT AUTO 10 % (4-13); Mean Corpuscular HGB 27.5 pg (26.0-34.0); Mean Corpuscular HGB Conc 30.9 g/dL (31.5-36.5); Mean Corpuscular Volume 89 fL (80-100); NEUTROPHILS ABSOLUTE AUTO 10.31 K/mm3 (1.96-9.15); NEUTROPHILS PERCENT AUTO 66 % (41-73); Platelet Count 285 K/mm3 (150-400); RDW Coefficient Variation 16.8 % (11.7-14.2); RDW Standard Deviation 53.5 fL (35.1-46.3); Red Blood Cell Count 2.98 M/mm3 (3.80-5.20); White Blood Cell Count 15.77 K/mm3 (4.00-11.30)
[2024-11-22 04:14] LABS: Albumin, Blood 1.9 g/dL (3.4-5.0); Anion Gap 10 mmol/L (3-11); Blood Urea Nitrogen 91 mg/dL (8-24); Bun/Creatinine Ratio 36.4 (12.0-20.0); CO2, Blood 28 mmol/L (21-32); Calcium, Blood 8.3 mg/dL (8.5-10.1); Chloride, Blood 108 mmol/L (98-108); Glomerular Filtration Rate 21 (60-); Glucose, Blood 227 mg/dL (70-99); Magnesium, Blood 2.7 mg/dL (1.6-2.4); Phosphorus, Blood 3.9 mg/dL (2.5-4.9); Potassium, Blood 3.6 mmol/L (3.5-5.5); Sodium, Blood 142 mmol/L (136-145)
--- NOTE | 2024-11-22 04:35 | NUR ---
SHIFT SUMMARY PT REMAINS ON 2L NC. PT COMPLAINS OF INSOMNIA, THIS RN EDUCATED PT ON ATTEMPTING TO REREGULATE CIRCADIUM RHYTHM. PT DENIES PAIN. PT REMAINS VERY PLEASANT. PT DENIES CHEST PAIN. NO NEW ACUTE EVENTS OVER NIGHT. WILL CONTINUE THE PLAN OF CARE.
--- NOTE | 2024-11-22 07:17 | NUR ---
ASSUMED CARE OF PATIENT AT APPROXIMATELY 0700. REPORT RECEIVED FROM MAXIMINO MIRANDA. PT AWAKE IN BED, INTERACTING APPROPRIATELY WITH STAFF DURING BEDSIDE REPORT. CONTINUOUS CARDIAC MONITORING IN PLACE SHOWS SR, BP STABLE WITH MAP > 65. ON 2LPM O2 VIA NC WITH O2 SATURATIONS > 92%. RECTAL TUBE AND VEGA IN PLACE. RIJ INFUSING TKO. SEE SHIFT ASSESSMENT FOR FULL DETAILS.
--- NOTE | 2024-11-22 10:20 | NUR ---
LEFT MESSAGE FOR DR. CHAIDEZ TO RETURN CALL RE K REPLACEMENT AND IV ABX DE-ESCALATION.
--- NOTE | 2024-11-22 11:00 | NUR ---
DR. CHAIDEZ RETURNED MY CALL RE POTASSIUM REPLACEMENT AND IV ABX DE-ESCALATION. SHE WILL PUT IN ORDERS FOR POTASSIUM REPLACEMENT AND REVIEW CHART TO ABX DE-ESCALATION.
--- NOTE | 2024-11-22 11:30 | NUR ---
Spiritual care visit. Patient was alert and conversational. The patient shared about the fear that she has felt as she processed the extent of the clinical interventions and the significance of her medical condition. Patient expressed interest in spiritual matters and was receptive to spiritual discussion and asked for local samaritan recommendations. She reported a renewed interested in ruth as a result of the near experience. Investigated patient's family background and support system which is solid. Prayer, anxiety containment and encouragement supplied. Patient verbally consented to major general reaching out to ruth communities and on her behalf. Patient expressed gratitude for spiritual and emotional support. (This note approved by Granite Setter Marques Castro.)
[2024-11-22] MEDS ORDERED: OxyCODONE HCL 5 MG TAB PO PRN (15:35)
[2024-11-22] MEDS ORDERED: Isosorbide Mononitrate 30 MG TABCR PO SCH (16:00)
--- NOTE | 2024-11-22 17:42 | NUR ---
SHIFT SUMMARY PT REMAINED ALERT AND ORIENTED X 4 T/O ENTIRETY OF SHIFT. ABLE TO FOLLOW COMMANDS, MAKE PURPOSEFUL MOVEMENTS, AND MAKE NEEDS KNOWN. TMAX 99.4. REPORTED ONE EPISODE OF PAIN TO BOTTOM/EXCORIATION. MEDICATED PER EMAR WITH GOOD BENEFIT. CONTINUOUS CARDIAC MONITORING IN PLACE SHOWED SR WITH HR IN 80'S, BP STABLE. NITRO PASTE DC'ED PER DR. CHAIDEZ. ON 2LPM O2 VIA NC WITH O2 SATURATIONS > 92%. WEAK, PRODUCTIVE COUGH. VOICE REMAINS HOARSE. RECTAL TUBE DRAINING WATERY STOOLS TO GRAVITY. TEMP VEGA DRAINING CLEAR YELLOW URINE TO GRAVITY. R BKA STUMP DRESSED PER ORDERS THIS SHIFT. CENTRAL LINE DC'ED, PIV PLACED TO LFA. AT BEDSIDE, UPDATED ON PLAN OF CARE. WILL CONTINUE TO MONITOR AND REPORT TO ONCOMING RN.
--- NOTE | 2024-11-22 21:00 | NUR ---
ASSUMED CARE PT IS A&O X4; SPO2 >92% ON 2LNC; MAP >65. PT DENIES CP, SOB, AND NAUSEA AT THIS TIME. RESTING QUIETLY. RECTAL TUBE AND VEGA CATHETER PATENT AND DRAINING TO GRAVITY.
[2024-11-23 04:03] VITALS: BP 123/64
--- NOTE | 2024-11-23 05:59 | NUR ---
SHIFT SUMMARY NO ACUTE EVENTS OVERNIGHT. PT CONTINUES TO DENY CP, SOB, AND NAUSEA. C/O OF PAIN IN RIGHT STUMP ONCE OVERNIGHT AND WAS MANAGED WELL PER EMAR/REPOSITIONING. RECTAL TUBE OUT D/T PT HAVING FORMED STOOL. PT RESTING QUIETLY. AT THIS TIME. VSS
[2024-11-23] MEDS ORDERED: Potassium Chloride 20 MEQ TabCR PO SCH (09:00)
[2024-11-23] MEDS ORDERED: Furosemide 40 MG Tab PO SCH (09:00)
[2024-11-23 09:41] VITALS: BP 144/79
[2024-11-23 11:18] LABS: BASOPHILS ABSOLUTE AUTO 0.05 K/mm3 (0.00-0.23); BASOPHILS PERCENT AUTO 0 % (0-2); EOSINOPHILS ABSOLUTE AUTO 0.64 K/mm3 (0.00-0.68); EOSINOPHILS PERCENT AUTO 5 % (0-6); Hematocrit 27.9 % (33.0-51.0); Hemoglobin 8.5 g/dL (11.5-16.0); IMMATURE GRAN ABSOLUTE AUTO 0.12 K/mm3 (0.00-0.10); IMMATURE GRAN PERCENT AUTO 1 % (0-1); LYMPHOCYTES ABSOLUTE AUTO 2.33 K/mm3 (0.84-5.20); LYMPHOCYTES PERCENT AUTO 19 % (21-46); MONOCYTES ABSOLUTE AUTO 1.28 K/mm3 (0.16-1.47); MONOCYTES PERCENT AUTO 10 % (4-13); Mean Corpuscular HGB 27.4 pg (26.0-34.0); Mean Corpuscular HGB Conc 30.5 g/dL (31.5-36.5); Mean Corpuscular Volume 90 fL (80-100); Mean Platelet Volume 10.7 fL (9.1-12.4); NEUTROPHILS PERCENT AUTO 65 % (41-73); Platelet Count 301 K/mm3 (150-400); RDW Coefficient Variation 16.6 % (11.7-14.2); RDW Standard Deviation 53.4 fL (35.1-46.3); White Blood Cell Count 12.52 K/mm3 (4.00-11.30)
[2024-11-23 11:39] LABS: Albumin/Globulin Ratio 0.3 (0.8-1.8); Bilirubin, Total 0.4 mg/dL (0.1-1.0); Calcium, Blood 8.4 mg/dL (8.5-10.1); Potassium, Blood 3.4 mmol/L (3.5-5.5)
--- NOTE | 2024-11-23 12:20 | NUR ---
AM NOTE... ASSUMED CARE OF PT AT 0700, PT IS A&Ox4. PT WORKED WITH PT/OT THIS AM. PT IS CURRENTLY UP IN THE RECLINER CHAIR VIA THE LIFT. PT'S VS STABLE, PT WAS MEDICATED FOR PAIN TO HER RIGHT STUMP PER EMAR. VEGA WAS REMOVED WNL.
--- NOTE | 2024-11-23 13:43 | NUR ---
Spiritual care visit conducted Greeted Pt and assessed current state of conditions. Pt was alert and conversational. Conducted spirtual assessment of pt's spouse Edson. Spouse reported no ruth-based affiliations but was agreeable to pt's interests. Conversation about the pace of pt's recovery was diverted to avoid the tension building between pt and spouse evidenced by the use of coarse language. Pt and spouse resumed lighthearted conversation. Pt's insulin needs were addressed by attending nurse. Life review was conducted. Pt is eager to be discharged. Encouraged self-care in the form of nutrition. Prayer was offered, pt expressed an interest in "general" prayer pertaining to her conditions and concerns about finding a new local ruth community. Pt was receptive to prayer and expressed gratitude for emotional support and prayer.
[2024-11-23 16:06] VITALS: BP 138/70
[2024-11-23 18:14] LABS: Albumin/Globulin Ratio 0.3 (0.8-1.8); Bilirubin, Total 0.6 mg/dL (0.1-1.0); Bun/Creatinine Ratio 32.4 (12.0-20.0); Calcium, Blood 8.7 mg/dL (8.5-10.1); Creatinine, Blood 2.07 mg/dL (0.40-1.00); Potassium, Blood 3.5 mmol/L (3.5-5.5)
--- NOTE | 2024-11-23 18:43 | NUR ---
SHIFT SUMMARY.... NO ACUTE NEGATIVE CHANGES. PT'S VS STABLE. PT WAS UP IN THE RECLINER CHAIR FOR SEVERAL HOURS THIS SHIFT. PT HAS REFUSED THE BEDPAN TO VOID REQUSTING A PURWICK. WILL REPORT TO ONCOMING RN.
[2024-11-23 19:38] VITALS: BP 138/75
--- NOTE | 2024-11-23 20:52 | NUR ---
TOOK REPORT FROM LYNDSAY MIRANDA @ 2049.
--- NOTE | 2024-11-23 20:53 | NUR ---
ASSUMED CARE AT 1900 PATIENT IS ALERT AND ORIENTED X4. SP02 94% ON 2L VIA NC, DENIES SOB. HR SR 80s, BP STABLE. DENIES CP/PRESSURE. PUREWICK IN PLACE WITH ATTENDS. RIGHT BKA DRESSING C/D/I. PATIENT DENIES PAIN AT THIS TIME. PATIENT TO MOVE TO ROOM 354, PATIENT HAS CELL PHONE AT BEDSIDE AND STATED SHE WOULD NOTIFY FAMILY OF MOVE.
[2024-11-23] MEDS ORDERED: Arginine/Glutamine/Calcium Hmb 1 Packet PO SCH (21:00)
--- NOTE | 2024-11-23 22:59 | NUR ---
PT TRANSFERRED TO [place] [address] FROM ICU 04. DANIEL MIRANDA BROUGHT PT WITH ALL BELONGINGS AND RX.
[2024-11-24 04:25] VITALS: BP 149/86
[2024-11-24 04:58] LABS: BASOPHILS ABSOLUTE AUTO 0.05 K/mm3 (0.00-0.23); BASOPHILS PERCENT AUTO 0 % (0-2); EOSINOPHILS ABSOLUTE AUTO 0.74 K/mm3 (0.00-0.68); EOSINOPHILS PERCENT AUTO 7 % (0-6); Hemoglobin 8.7 g/dL (11.5-16.0); IMMATURE GRAN PERCENT AUTO 1 % (0-1); LYMPHOCYTES ABSOLUTE AUTO 2.53 K/mm3 (0.84-5.20); LYMPHOCYTES PERCENT AUTO 22 % (21-46); MONOCYTES ABSOLUTE AUTO 1.32 K/mm3 (0.16-1.47); MONOCYTES PERCENT AUTO 12 % (4-13); Mean Corpuscular HGB 27.5 pg (26.0-34.0); Mean Corpuscular HGB Conc 31.1 g/dL (31.5-36.5); Mean Corpuscular Volume 89 fL (80-100); Mean Platelet Volume 10.6 fL (9.1-12.4); NEUTROPHILS PERCENT AUTO 59 % (41-73); Platelet Count 291 K/mm3 (150-400); RDW Standard Deviation 52.7 fL (35.1-46.3); Red Blood Cell Count 3.16 M/mm3 (3.80-5.20); White Blood Cell Count 11.44 K/mm3 (4.00-11.30)
--- NOTE | 2024-11-24 05:38 | NUR ---
SHIFT SUMMARY NOC PT A/O X 4. PLEASANT AND COOPERATIVE WITH CARE. VSS. PT WAS TRANSFER FROM ICU 04. PT HAS R BKA 11/03/24 WITH DRESSING AND STUMP SOCK IN PLACE C/D/I. PT ON 2L/NC SPO2 >92%. ON TELE SINUS IN 80'S. HAS PUREWICK IN PLACE FOR INCONTINENCE. PT R BKA PAIN BEING MANAGED PER EMAR. PT REFUSED CPAP AND BIOX AND SIGNED REFUSAL FORM PER RT. PT CURRENTLY RESTING WITH BED IN LOWEST POSITION, AND CALL LIGHT WITHIN REACH.
[2024-11-24 07:33] VITALS: BP 128/71
[2024-11-24 15:40] VITALS: BP 167/93
--- NOTE | 2024-11-24 15:45 | NUR ---
Spiritual care visit conducted. Pt is alert and conversational with spouse and older sister visiting. Pt met with toy mechanic from [facility] via correspondence from another scientific specialist. Pt felt that the toy mechanic was a positive presence but had overall mixed feelings pertaining to differing views on theology. Pt was grateful for the visit from the toy mechanic and continues to seek out a ruth commmunity. Spiritual assessment conducted. Pt and her sister recount their mother's deep ruth and her involvment in the sikhism growing up. Both are open to spiritual discussion. Tension observed between pt and spouse with emphasis on orthodox. Spouse said "god must have punished you to give you me." Pt remained emotionally in control and said "you know god loves you." Conversation was diverted to other topics to avoid tension. Pt, spouse, and sister expressed emotional relief in the form of laughter. Pt feels she is ready to discharge while spouse disagrees. Prayer was offered. Pt thanked me for diction- "I liked the word calm recovery in your prayer." Pt and sister express gratitude for prayer and visit.
--- NOTE | 2024-11-24 18:25 | NUR ---
SHIFT SUMMARY PT AOX4, COOPERATIVE, ABLE TO MAKE NEEDS KNOWN. PT ONLY COMPLAINED OF PAIN AT ONE POINT TODAY AFTER HANDKERCHIEF FOLDER, MEDICATED PER EMAR. PERFORMED WOUND CARE. TELE INTACT. PLAN IS TO GO TO SNF WHEN PT IS READY.
[2024-11-24 19:08] VITALS: BP 142/82
[2024-11-25 04:01] VITALS: BP 153/83
--- NOTE | 2024-11-25 04:08 | NUR ---
SHIFT SUMMARY PATIENT HAD NO ACUTE CHANGES. AXOX 4 AND BEDREST/LIFT. RBKA. DENIES CHEST PAIN, SOB, AND N/V. VSS/AFERBILE. PIV INTACT. TELE MONITOR NSR 76. CBG 167. PUREWICK IN PLACE. ON 2L O2 NC AND RA BASELINE. SLEPT MOST OF SHIFT. CALL LIGHT IN REACH. BED IN LOWEST POSITION. WILL CONTINUE TO MONITOR UNTIL DAY SHIFT NURSE ASSUMES CARE.
[2024-11-25 07:41] VITALS: BP 138/80
--- NOTE | 2024-11-25 09:00 | NUR ---
pt laying in bed watching tv, a/ox4, pleasant and cooperative with care, follows commands well, denies pain at this time, states she's ok right now, lungs are clear in upper rahman, dim in bases, resp even and unlabored, occ nonproductive cough, hrr, trace edema noted to left lower ext, rbka, with dressing intact, purwick in place for urine, briefs in place, skin has yeast on bottom area, and folds, maew, senait, call light in reach.
--- NOTE | 2024-11-25 14:41 | NUR ---
Spiritual care visit conducted. Pt showed signs of distress in the form of tears. Addressed pt's present state of mind. Pt was initially hesitant to converse but gradually opened up about present concerns. Pt is simultaneously grieiving her late father and a leg amputation. Provided compassionate listening and normalized pt's experience. Provided emotional support by helping pt cultivate gratitude. Pt was grateful about a visit from her pet. Pt appeared relieved by conversation as a distraction from life concerns. Pt feels pressure from family and spouse about the pace of her recovery. Encouraged pt to focus on self-care and to set reasonable expectations about recovery. Pt is hoping to be discharged soon. Prayer offered. Pt expressed gratitude for prayer.
--- NOTE | 2024-11-25 18:32 | NUR ---
pt got up to recliner chair today via lift, she was very agitated that she needed to have bm and we weren't able to come immediately, calmed right down, she was placed back in bed for dinner, but layed down before she could eat. no furhter changes this shift. call light in reach.
[2024-11-25 19:22] VITALS: BP 141/76
[2024-11-26 03:37] VITALS: BP 136/74
--- NOTE | 2024-11-26 05:01 | NUR ---
SHIFT SUMMARY PATIENT HAD NO ACUTE CHANGES. AXOX 4 AND BEDREST/LIFT. RIGHT BKA. CBG 228. TELE MONITOR NSR 81. ON 1L O2 NC. DENIES CHEST PAIN, SOB, AND N/V. VSS/AFEBRILE. COOPERATIVE WITH CARE. CALL LIGHT IN REACH. BED IN LOWEST POSITION. WILL CONTINUE TO MONITOR UNTIL DAY SHIFT NURSE ASSUMES CARE.
[2024-11-26 06:36] LABS: BASOPHILS ABSOLUTE AUTO 0.05 K/mm3 (0.00-0.23); BASOPHILS PERCENT AUTO 1 % (0-2); EOSINOPHILS ABSOLUTE AUTO 0.55 K/mm3 (0.00-0.68); EOSINOPHILS PERCENT AUTO 7 % (0-6); IMMATURE GRAN ABSOLUTE AUTO 0.09 K/mm3 (0.00-0.10); IMMATURE GRAN PERCENT AUTO 1 % (0-1); LYMPHOCYTES ABSOLUTE AUTO 1.97 K/mm3 (0.84-5.20); LYMPHOCYTES PERCENT AUTO 24 % (21-46); MONOCYTES ABSOLUTE AUTO 0.93 K/mm3 (0.16-1.47); MONOCYTES PERCENT AUTO 11 % (4-13); Mean Corpuscular HGB 26.9 pg (26.0-34.0); Mean Corpuscular Volume 90 fL (80-100); NEUTROPHILS ABSOLUTE AUTO 4.71 K/mm3 (1.96-9.15); NEUTROPHILS PERCENT AUTO 57 % (41-73); Platelet Count 331 K/mm3 (150-400); RDW Coefficient Variation 15.6 % (11.7-14.2); Red Blood Cell Count 3.35 M/mm3 (3.80-5.20)
[2024-11-26 06:58] LABS: Albumin, Blood 2.3 g/dL (3.4-5.0); Albumin/Globulin Ratio 0.4 (0.8-1.8); Bilirubin, Total 0.4 mg/dL (0.1-1.0); Bun/Creatinine Ratio 29.2 (12.0-20.0); Calcium, Blood 8.9 mg/dL (8.5-10.1); Creatinine, Blood 1.78 mg/dL (0.40-1.00); Globulin, Blood 5.8 g/dL (2.2-4.0); Potassium, Blood 3.8 mmol/L (3.5-5.5); Total Protein, Blood 8.1 g/dL (6.4-8.2)
[2024-11-26 07:38] VITALS: BP 154/77
--- NOTE | 2024-11-26 09:00 | NUR ---
pt laying in bed awake a/ox4, pleasant and cooperative with care, can get very anxious, follows commands well, denies pain this am, states her night was pretty good, lungs are clear a bit dim in bases, resp even and unlabored, no cough noted, hrr, tele in place running sr in the 70's per monitor, see strip, no edema noted, pp+1 to left foot, piv to lfa site is clear and patent, btx4, abd flat soft nontender, briefs in place for incont, using bed connelly for bm, skin has dressing to right stump, no drainage noted, maew, is a lift to get oob, senait, call light in reach.
--- NOTE | 2024-11-26 11:05 | NUR ---
Spiritual care visit conducted. Application Technical Designer Mike present for visit. Pt was alert and conversational. Addressed pt's current condition. Pt expresses desire to be discharged soon. Reflected upon previous visit pt had with a local malariologist. Pt once again expresses theological differences that can't be reconciled. Pt remains hopeful about her ruth journey and expresses that god is in control. Addressed tension between her and spouse related to ruth. Pt feels spouse's heart has been hardened towards ruth. Pt expressed emotional release in the form of tears. Provided compassionate listening. Conducted life review of pt's mother. Pt's mother was a friday school psychologist with encylopedic knowledge. Pt describes the day of mother's passing as "the best day and the worst day." Pt is able to grasp deep insights about her connection with her mother and the grief she feels surrounding it while acknowledging the independence she felt following her passing. Pt remains grateful and displays a more positive demeanor compared to previous visit. Prayer offered. Pt interjected during prayer when the topic of her 's relationship to god was offered up saying "thank you." Pt appeared emotionally relieved by prayer and thanked us for the visit.
--- NOTE | 2024-11-26 14:55 | NUR ---
MET WITH PATIENT AND PROVIDED THERAPUTIC CONVERSATION. PATIENT IS FEELING MUCH BETTER. WE DISCUSSED HER TIME IN ICU. WE DISCUSSED CODE STATUS, SHE IS COMFORTABLE REAMINING A FULL CODE. SHE SAID THAT BEING INTUBATED WAS VERY DIFFICULT BUT WOULD DO IT AGAIN TO SAVE HER LIFE. WE DISCUSSED HER AND HOW HE HAS STRUGGLED EMOTIONALLY WITH HER BEING ILL. HE LOST HIS PREVIOUS TO CANCER AND HAS HAD TWO CHILDREN PASS. SHE IS UNDERSTANDING THAT SHE IS GOING TO SNF WHEN SHE LEAVES THE HOSPITAL FOR REHAB. SHE IS READY FOR SOME MAJOR LIFE CHANGES. SHE REPORTED THAT SHE IS PLANNING ON BEING MORE ACTIVE AND WANTS TO TRAVEL.
[2024-11-26 16:43] VITALS: BP 136/73
[2024-11-26 21:24] VITALS: BP 141/68
[2024-11-27 04:23] VITALS: BP 142/75
--- NOTE | 2024-11-27 05:25 | NUR ---
SHIFT SUMMARY PT ALERT AND ORIENTED TIMES 4. PT HAD RBKA. ADMITTED FOR SEPSIS DUE TO CELLULITIS. ACUTE PULMONARY EDEMA. PT IS COOPERATIVE WITH CARE AND APPROPRIATE WITH CALL LIGHT. PT LETS STAFF KNOW WHEN NEEDS TO USE BEDPAN. PT ON TELE SINUS RHYTHM. CALL LIGHT WITHIN REACH, RAILS TIMES 2, BED IN LOW POSITION.
[2024-11-27 07:45] VITALS: BP 168/80
[2024-11-27] MEDS ORDERED: Carvedilol 3.125 MG Tab PO SCH (08:00)
[2024-11-27] MEDS ORDERED: Carvedilol 6.25 MG Tab PO SCH (08:00)
[2024-11-27] MEDS ORDERED: MIRALAX17 GM PO (15:42)
[2024-11-27] MEDS ORDERED: OXYC10ER PO (15:43)
[2024-11-27] MEDS ORDERED: ASPI81CH PO (15:46)
[2024-11-27] MEDS ORDERED: CARV3.125 PO (15:47)
[2024-11-27] MEDS ORDERED: FURO40 PO (15:47)
[2024-11-27] MEDS ORDERED: Isosorbide Mono30 MG PO (15:48)
--- NOTE | 2024-11-27 16:58 | NUR ---
PT DISCHARGED FROM [place], [place] TO [facility] 1534 VIA WHEELCHAIR [place]. CEILING LIFT INTO CHAIR. SENT WITH BELONGINGS. CALLED REPORT LATE [id number]
== END 2024-11-27 15:35 | DRG 853 ==
LOC: ER 15:05 → ICUE 15:06 → SURS 15:06 → PCU 15:06 → ERHOLD 15:06 → PCU 22:31 → SURS 11-08 13:44 → ICUE 11-15 15:12 → MEDS 11-23 21:12
PROVIDERS: Emergency Medicine; Family Medicine; Family Medicine Adult Medicine; Hospitalist; Internal Medicine; Internal Medicine Critical Care Medicine; Nurse Practitioner Acute Care; Orthopaedic Surgery; Orthopaedic Surgery Sports Medicine; Student in an Organized Health Care Education/Training Program; ADMIT Student in an Organized Health Care Education/Training Program
PROC: 0Y6H0Z3 Detachment at Right Lower Leg, Low, Open Approach (ICD-10-PCS; 2024-11-03)
PROC: 3E10X8Z Irrigation of Skin and Mucous Membranes using Irrigating Substance (ICD-10-PCS; 2024-11-04)
PROC: 0Y6H0Z1 Detachment at Right Lower Leg, High, Open Approach (ICD-10-PCS; principal; 2024-11-05 14:00)
PROC: 5A09457 Assistance with Respiratory Ventilation, 24-96 Consecutive Hours, Continuous Positive Airway Pressure (ICD-10-PCS; 2024-11-07)
PROC: 5A1955Z Respiratory Ventilation, Greater than 96 Consecutive Hours (ICD-10-PCS; 2024-11-15)
PROC: 0BH17EZ Insertion of Endotracheal Airway into Trachea, Via Natural or Artificial Opening (ICD-10-PCS; 2024-11-15)
PROC: 30233N1 Transfusion of Nonautologous Red Blood Cells into Peripheral Vein, Percutaneous Approach (ICD-10-PCS; 2024-11-15)
PROC: 05HM33Z Insertion of Infusion Device into Right Internal Jugular Vein, Percutaneous Approach (ICD-10-PCS; 2024-11-15)
PROC: 3E033XZ Introduction of Vasopressor into Peripheral Vein, Percutaneous Approach (ICD-10-PCS; 2024-11-15)
PROC: 3E03329 Introduction of Other Anti-infective into Peripheral Vein, Percutaneous Approach (ICD-10-PCS; 2024-11-15)
PROC: 0DH67UZ Insertion of Feeding Device into Stomach, Via Natural or Artificial Opening (ICD-10-PCS; 2024-11-15)
PROC: 02HV33Z Insertion of Infusion Device into Superior Vena Cava, Percutaneous Approach (ICD-10-PCS; 2024-11-15)
DX: A41.9 Sepsis, unspecified organism (principal); E11.10 Type 2 diabetes mellitus with ketoacidosis without coma; J80 Acute respiratory distress syndrome; M72.6 Necrotizing fasciitis; J81.0 Acute pulmonary edema; I21.4 Non-ST elevation (NSTEMI) myocardial infarction; R57.0 Cardiogenic shock; N17.9 Acute kidney failure, unspecified; L03.115 Cellulitis of right lower limb; Z68.41 Body mass index [BMI] 40.0-44.9, adult; E87.1 Hypo-osmolality and hyponatremia; I13.0 Hypertensive heart and chronic kidney disease with heart failure and stage 1 through stage 4 chronic kidney disease, or unspecified chronic kidney disease; I50.32 Chronic diastolic (congestive) heart failure; E66.01 Morbid (severe) obesity due to excess calories; E11.22 Type 2 diabetes mellitus with diabetic chronic kidney disease; N18.32 Chronic kidney disease, stage 3b; D63.1 Anemia in chronic kidney disease; Z89.511 Acquired absence of right leg below knee; Z88.7 Allergy status to serum and vaccine; Z79.899 Other long term (current) drug therapy; Z79.4 Long term (current) use of insulin; Z79.84 Long term (current) use of oral hypoglycemic drugs
CPT/HCPCS: 0528U; 31500; 36415; 36416; 36430; 36556; 36600; 51703; 71045; 76882; 80048; 80053; 80069; 80202; 81001; 82010; 82330; 82565; 82607; 82728; 82746; 82803; 82947; 83540; 83550; 83605; 83735; 83880; 84100; 84145; 84478; 84484; 85014; 85018; 85025; 85045; 85520; 85610; 85651; 85730; 86140; 86141; 86850; 86900; 86901; 86923; 87040; 87070; 87075; 87147; 87205; 88307; 93005; 93010; 93971; 94002; 94003; 94640; 94660; 94664; 94760; 94762; 97110; 97110-CQ; 97162; 97164; 97165; 97168; 97530; 99285-25; A9270; C1751; C8929; J0690; J0692; J1100; J1171; J1644; J1815; J1940; J2060; J2250; J2405; J2470; J2543; J2704; J2795; J3010; J3370; J3480; J7030; J7040; J7050; J7060; J7120; P9016; Q9957

== ENCOUNTER 2025-04-11 03:27 | Day surgery (SDC) | payer OTHER ==
[~2025-04-11 03:27] MED LIST changes: +ASPI81CH PO; +CARV3.125 PO; +FURO40 PO; +Isosorbide Mono30 MG PO; +MIRALAX17 GM PO; +OXYC10ER PO
[2025-04-11] MEDS ORDERED: Lidocaine HCl 4% Cream 5 GM ONE (12:42)
== END 2025-04-11 23:43 | disposition home or self-care (01) ==
LOC: WOUND 03:27
DX: E11.622 Type 2 diabetes mellitus with other skin ulcer (principal); L97.812 Non-pressure chronic ulcer of other part of right lower leg with fat layer exposed; E11.51 Type 2 diabetes mellitus with diabetic peripheral angiopathy without gangrene; Z88.7 Allergy status to serum and vaccine; Z89.511 Acquired absence of right leg below knee
CPT/HCPCS: A6213; A9270; G0463

== ENCOUNTER 2025-05-02 08:00 | Day surgery (SDC) | payer OTHER | END 2025-05-02 23:00 | disposition home or self-care (01) | LOC: WOUND 08:00 | DX: E11.622 Type 2 diabetes mellitus with other skin ulcer (principal); L97.812 Non-pressure chronic ulcer of other part of right lower leg with fat layer exposed; E11.51 Type 2 diabetes mellitus with diabetic peripheral angiopathy without gangrene | CPT/HCPCS: A6213 ==

== ENCOUNTER 2025-05-09 04:21 | Day surgery (SDC) | payer OTHER | END 2025-05-09 23:00 | disposition home or self-care (01) | LOC: WOUND 04:21 | DX: E11.622 Type 2 diabetes mellitus with other skin ulcer (principal); L97.812 Non-pressure chronic ulcer of other part of right lower leg with fat layer exposed; E11.51 Type 2 diabetes mellitus with diabetic peripheral angiopathy without gangrene; Z89.511 Acquired absence of right leg below knee | CPT/HCPCS: A6213; G0463 ==

== ENCOUNTER 2025-05-23 00:57 | Day surgery (SDC) | payer OTHER | END 2025-05-23 23:00 | disposition home or self-care (01) | LOC: WOUND 00:57 | DX: E11.622 Type 2 diabetes mellitus with other skin ulcer (principal); L97.812 Non-pressure chronic ulcer of other part of right lower leg with fat layer exposed; E11.51 Type 2 diabetes mellitus with diabetic peripheral angiopathy without gangrene | CPT/HCPCS: A6196; A6213; G0463 ==

== ENCOUNTER 2025-05-31 01:21 | Day surgery (SDC) | payer OTHER ==
[2025-05-31] MEDS ORDERED: Lidocaine HCl 4% Cream 5 GM ONE (08:45)
== END 2025-05-31 23:00 | disposition home or self-care (01) ==
LOC: WOUND 01:21
DX: T87.81 Dehiscence of amputation stump (principal); E11.622 Type 2 diabetes mellitus with other skin ulcer; I73.9 Peripheral vascular disease, unspecified; Z89.511 Acquired absence of right leg below knee; Y83.5 Amputation of limb(s) as the cause of abnormal reaction of the patient, or of later complication, without mention of misadventure at the time of the procedure
CPT/HCPCS: A6196; A6213; A9270

== ENCOUNTER 2025-06-27 00:25 | Day surgery (SDC) | payer OTHER | END 2025-06-27 23:19 | disposition home or self-care (01) | LOC: WOUND 00:25 | DX: E11.622 Type 2 diabetes mellitus with other skin ulcer (principal); L97.811 Non-pressure chronic ulcer of other part of right lower leg limited to breakdown of skin; E11.51 Type 2 diabetes mellitus with diabetic peripheral angiopathy without gangrene; Z89.511 Acquired absence of right leg below knee | CPT/HCPCS: A6213; G0463 ==

== ENCOUNTER 2025-07-11 01:10 | Day surgery (SDC) | payer OTHER | END 2025-07-11 23:00 | disposition home or self-care (01) | LOC: WOUND 01:10 | DX: E11.622 Type 2 diabetes mellitus with other skin ulcer (principal); L97.811 Non-pressure chronic ulcer of other part of right lower leg limited to breakdown of skin; E11.51 Type 2 diabetes mellitus with diabetic peripheral angiopathy without gangrene; E11.40 Type 2 diabetes mellitus with diabetic neuropathy, unspecified; Z89.511 Acquired absence of right leg below knee | CPT/HCPCS: G0463 ==